=== PATIENT | male | born 1935 | race Caucasian/White ===

== ENCOUNTER 2018-04-23 09:00 | Outpatient (RCR) | payer MEDICARE, OTHER, SELFPAY ==
--- NOTE | 2018-03-26 16:00 | PT.OTN ---
Current Diagnoses Unilateral primary osteoarthritis, left knee (03/27/18) Pain in left knee (03/27/18) Transition note: On March 26, 2018 our therapy services consisting of Speech, Occupational, and Physical Therapy transitioned from the [employer] electronic documentation system to a new [employer] electronic documentation system.?? All documentation prior to March 26 can be found under [employer] saved data. From March 26 forward all medical record documentation will be in [employer] 6.1.
--- NOTE | 2018-03-27 17:33 | PT.OTN ---
Current Diagnoses Unilateral primary osteoarthritis, left knee (03/27/18) Pain in left knee (03/27/18) Physical Therapy Treatment Note PT-OP-A Visit Information Start: 03/27/18 12:36 Freq: Status: Active Protocol: Activity Type Activity Date Activity User E-Sign Co-Sign Detail Recorded Client Recorded Date Recorded By Document 03/27/18 17:08 KATHYA [id number] 03/27/18 17:11 EA 03/27/18 17:08 Out-Patient Physical Therapy Visit Information [Visit Information] -Visit Type Treatment Note PT-OP-C Subjective Start: 03/27/18 12:36 Freq: Status: Active Protocol: Activity Type Activity Date Activity User E-Sign Co-Sign Detail Recorded Client Recorded Date Recorded By Document 03/27/18 17:14 KATHYA [id number] 03/27/18 17:16 EA 03/27/18 17:14 OP-PT Subjective [Patient Comments] -Patient Reported Progress Improving Patient Questionnaires [Lower Extremity Functional Scale] -LEFS Impairment 1 to 19% Impaired (Score 63-79) PT-OP-Q Treatments Start: 03/27/18 12:36 Freq: Status: Active Protocol: Activity Type Activity Date Activity User E-Sign Co-Sign Detail Recorded Client Recorded Date Recorded By Document 03/27/18 17:16 EA [id number] 03/27/18 17:22 EA 03/27/18 17:16 Cardio Equipment [Recumbent Stepper (Sci-Fit)] -Duration (Minutes) 7 -Resistance 2 Gym Equipment [Cable Column (Body Solid)] Leg Extension -Resistance 30-50 lbs -Reps/Time x 12 x 3 [Shuttle Recovery] Unilateral Squats -Resistance 3-4 cords -Shuttle Recovery Platform Stable -Reps/Time x 12 x 3 sets Therapeutic Exercises [Supine Exercises] 1 -Supine Exercise Name Supine hamstring -Side left -Reps/Minutes 30 SH x 2 [Sidelying Exercises] 1 -Sidelying Exercise Name IT band and hip flexors stretches -Side left -Reps/Minutes x 30SH x 2 [Standing Exercises] 1 -Standing Exercise Name Half kneeling hip flexors and quads stretch -Side bilateral -Reps/Minutes x 30SH x 2reps [Other Exercises] 2 -Other Exercise Name Partial lunges hand support -Side bilateral -Reps/Minutes x 8 reps x 2 1 -Other Exercise Name Sit to stand squat w/ heel raises w/ hand support -Side bilateral -Reps/Minutes x 10 x 2sets -Comments no knee over toes PT-OP-R Modalities Start: 03/27/18 12:36 Freq: Status: Active Protocol: Activity Type Activity Date Activity User E-Sign Co-Sign Detail Recorded Client Recorded Date Recorded By Document 03/27/18 17:14 EA [id number] 03/27/18 17:16 EA 03/27/18 17:14 Electric Stimulation [Electric Stimulation] Interferential Current (IFC) -Body Location left knee -Duration (Minutes) 15 -Target/Sweep Target -Patient Position Supine -Combined With Heat/Cold Cold Pack Hot Pack/Cold Pack [Treatment] Cold Pack -Patient Position Supine -Patient Tolerance Good PT-OP-T Assessment and Plan Start: 03/27/18 12:36 Freq: Status: Active Protocol: Activity Type Activity Date Activity User E-Sign Co-Sign Detail Recorded Client Recorded Date Recorded By Document 03/27/18 17:23 EA [id number] 03/27/18 17:28 EA 03/27/18 17:23 Physical Therapy Assessment [Rehab Potential] -Rehabilitation Potential Good [Impairments] -Impairments Pain Strength [Progress Towards Goals] -Progress Towards Goals Progressing Toward Goals [Assessment Summary] -Assessment Patient have seen for 10 tretament session at this time and demonstrates increased activity tolerance and decreased pain complaint. Patient will still benefit with skilled PT to address the remaining deficit Physical Therapy Plan [Frequency and Duration] -Frequency of Treatment 1x/Week -Duration of Treatment 45 [Therapeutic Interventions] -Therapeutic Interventions Joint Mobilizations Manual Therapy Self-Care/Home Management Soft Tissue Mobilization Therapeutic Exercises -Modalities Cold Pack/Ice Massage Electric Stimulation Ultrasound
--- NOTE | 2018-04-04 09:51 | PT.OTN ---
Current Diagnoses Unilateral primary osteoarthritis, left knee (04/04/18) Pain in left knee (04/04/18) Physical Therapy Treatment Note PT-OP-A Visit Information Start: 03/27/18 12:36 Freq: Status: Active Protocol: Document 04/04/18 09:50 EA (Rec: 04/04/18 09:50 EA [id number]) Out-Patient Physical Therapy Visit Information Visit Information Visit Type Treatment Note Total Visit Minutes 60 Visit Number 12 PT-OP-C Subjective Start: 03/27/18 12:36 Freq: Status: Active Protocol: Document 04/04/18 09:42 EA (Rec: 04/04/18 09:50 EA [id number]) OP-PT Subjective Patient Comments Patient Comments Patient has been up in the yard doing actively and denies pain. Patient Reported Progress Improving PT-OP-Q Treatments Start: 03/27/18 12:36 Freq: Status: Active Protocol: Document 04/04/18 09:42 EA (Rec: 04/04/18 09:50 EA [id number]) Cardio Equipment Recumbent Stepper (Sci-Fit) Duration (Minutes) 7 Resistance 3 Therapeutic Exercises Supine Exercises 1 Supine Exercise Name Supine hamstring Side left Reps/Minutes 30 SH x 2 Sidelying Exercises 1 Sidelying Exercise Name IT band and hip flexors stretches Side left Reps/Minutes x 30SH x 2 Standing Exercises 1 Standing Exercise Name Half kneeling hip flexors and quads stretch Side bilateral Reps/Minutes x 30SH x 2reps Other Exercises 2 Other Exercise Name Full lunges hand support Side bilateral Reps/Minutes x 8 reps x 2 1 Other Exercise Name Side step squat on rails Manual Therapy Treatment Soft Tissue Mobilization 1 Comments Not performed Joint Mobilizations 1 Joint TF joint; L Direction Ant/post Grade II PT-OP-R Modalities Start: 03/27/18 12:36 Freq: Status: Active Protocol: Document 04/04/18 09:42 EA (Rec: 04/04/18 09:50 EA [id number]) Electric Stimulation Electric Stimulation Interferential Current (IFC) Body Location left knee Duration (Minutes) 15 Target/Sweep Target Patient Position Supine Combined With Heat/Cold Cold Pack Hot Pack/Cold Pack Treatment Cold Pack Patient Position Supine Patient Tolerance Good PT-OP-T Assessment and Plan Start: 03/27/18 12:36 Freq: Status: Active Protocol: Document 04/04/18 09:42 EA (Rec: 04/04/18 09:50 EA [id number]) Physical Therapy Assessment Assessment Summary Assessment Patient denies discomfort or knee paint throughout the session. Patint is progressing at this time. Physical Therapy Plan Next Visit Focus/Plan Next Visit Plan Advance as tolerated.
--- NOTE | 2018-04-08 10:46 | PT.OTN ---
Current Diagnoses Unilateral primary osteoarthritis, left knee (04/08/18) Pain in left knee (04/08/18) Physical Therapy Treatment Note PT-OP-A Visit Information Start: 03/27/18 12:36 Freq: Status: Active Protocol: Document 04/08/18 09:55 EA (Rec: 04/08/18 10:45 EA [id number]) Out-Patient Physical Therapy Visit Information Visit Information Visit Type Treatment Note Total Visit Minutes 60 Visit Number 13 PT-OP-C Subjective Start: 03/27/18 12:36 Freq: Status: Active Protocol: Document 04/08/18 09:55 EA (Rec: 04/08/18 10:45 EA [id number]) OP-PT Subjective Patient Comments Patient Comments Patient unable to do HEP due to busy schedule. Pt reports no increased of knee pain int he past week. PT-OP-Q Treatments Start: 03/27/18 12:36 Freq: Status: Active Protocol: Document 04/08/18 09:55 EA (Rec: 04/08/18 10:45 EA [id number]) Cardio Equipment Recumbent Stepper (Sci-Fit) Duration (Minutes) 7 Resistance 3 Therapeutic Exercises Supine Exercises 1 Supine Exercise Name Supine hamstring Side left Reps/Minutes 30 SH x 2 Sidelying Exercises 1 Sidelying Exercise Name IT band and hip flexors stretches Side left Reps/Minutes x 30SH x 2 Standing Exercises 1 Standing Exercise Name Half kneeling hip flexors and quads stretch Side bilateral Reps/Minutes x 30SH x 2reps Other Exercises 2 Other Exercise Name Full lunges hand support Side bilateral Reps/Minutes x 8 reps x 2 1 Other Exercise Name Sit to stand squat w/ heel raises w/ hand support Side bilateral Reps/Minutes x 10 x 2sets Comments no knee over toes Manual Therapy Treatment Soft Tissue Mobilization 1 Body Location quads Mobilization Type Myofascial Release Intensity/Depth Moderate Body Position Supine Joint Mobilizations 1 Joint TF joint; L Direction Ant/post Grade II PT-OP-R Modalities Start: 03/27/18 12:36 Freq: Status: Active Protocol: Document 04/08/18 10:45 EA (Rec: 04/08/18 10:46 EA [id number]) Electric Stimulation Electric Stimulation Interferential Current (IFC) Body Location left knee Duration (Minutes) 15 Target/Sweep Target Patient Position Supine Combined With Heat/Cold Cold Pack Hot Pack/Cold Pack Treatment Cold Pack Patient Position Supine Patient Tolerance Good PT-OP-T Assessment and Plan Start: 03/27/18 12:36 Freq: Status: Active Protocol: Document 04/08/18 09:55 EA (Rec: 04/08/18 10:45 EA [id number]) Physical Therapy Assessment Progress Towards Goals Progress Towards Goals Progressing Toward Goals Assessment Summary Assessment See patient in 2 weeks and recommended to patient to cont . HEP. Patient is progressing well. Physical Therapy Plan Next Visit Focus/Plan Next Visit Plan Assess patient next visit and possible discharge to HEP if no more complaint.
--- NOTE | 2018-04-23 10:21 | PT.OTN ---
Current Diagnoses Unilateral primary osteoarthritis, left knee (04/23/18) Pain in left knee (04/23/18) Physical Therapy Treatment Note PT-OP-A Visit Information Start: 03/27/18 12:36 Freq: Status: Active Protocol: Document 04/23/18 09:39 EA (Rec: 04/23/18 10:20 EA [id number]) Out-Patient Physical Therapy Visit Information Visit Information Visit Type Treatment Note Total Visit Minutes 30 Visit Number 14 PT-OP-C Subjective Start: 03/27/18 12:36 Freq: Status: Active Protocol: Document 04/23/18 09:39 EA (Rec: 04/23/18 10:20 EA [id number]) OP-PT Subjective Patient Comments Patient Comments Patient reports left knee does not bother him much. HEP exercises is helping him but unable to perform in the past weeks due to busy schedule. Patient Questionnaires Lower Extremity Functional Scale LEFS Score 73 LEFS Impairment 1 to 19% Impaired (Score 63-79 ) PT-OP-Q Treatments Start: 03/27/18 12:36 Freq: Status: Active Protocol: Document 04/23/18 09:39 EA (Rec: 04/23/18 10:20 EA [id number]) Cardio Equipment Recumbent Stepper (Sci-Fit) Duration (Minutes) 7 Resistance 3 Therapeutic Exercises Supine Exercises 1 Supine Exercise Name Supine hamstring Side left Reps/Minutes 30 SH x 2 Comments home component Sidelying Exercises 1 Sidelying Exercise Name IT band and hip flexors stretches Side left Reps/Minutes x 30SH x 2 Comments home component program Standing Exercises 1 Standing Exercise Name Half kneeling hip flexors and quads stretch Side bilateral Reps/Minutes x 30SH x 2reps Comments HEP component Other Exercises 2 Other Exercise Name Full lunges hand support Side bilateral Reps/Minutes x 8 reps x 2 Comments HEP component program 1 Other Exercise Name Sit to stand squat w/ heel raises w/ hand support Side bilateral Reps/Minutes x 10 x 2sets Comments no knee over toes, HEP component program Self-Care/Home Management Treatment Education Patient Education Home Exercise Program Pain Management PT-OP-R Modalities Start: 03/27/18 12:36 Freq: Status: Active Protocol: Document 04/08/18 10:45 EA (Rec: 04/08/18 10:46 EA [id number]) Electric Stimulation Electric Stimulation Interferential Current (IFC) Body Location left knee Duration (Minutes) 15 Target/Sweep Target Patient Position Supine Combined With Heat/Cold Cold Pack Hot Pack/Cold Pack Treatment Cold Pack Patient Position Supine Patient Tolerance Good PT-OP-T Assessment and Plan Start: 03/27/18 12:36 Freq: Status: Active Protocol: Document 04/23/18 09:39 EA (Rec: 04/23/18 10:20 EA [id number]) Physical Therapy Assessment Assessment Summary Assessment Patient is discharge today after reaching most functional and treatment goals. Patient exhibit improved mobility with no signs of gait deviation at this time. Patient is good to dicharge to [facility] at this time. Discussed HEP and educated. Physical Therapy Plan Discharge Physical Therapy Discharge Reasons Goals Met Next Visit Focus/Plan Next Visit Plan Patient is discharge today. Please Sign and Return: I have reviewed this Plan of Care and certify that the skilled therapy services above are required to meet the patient???s needs. Physician Signature Date Printed Name and Credentials Clinical Instructor Signature Printed Name and Credentials
--- NOTE | 2018-04-23 10:21 | PT.OPDS ---
Current Diagnoses Unilateral primary osteoarthritis, left knee (04/23/18) Pain in left knee (04/23/18) Provider Visit Care Team Role Provider Type Zurdo Mcdonnell MD Attending Provider Physician Family Provider Primary Care Provider Specialty: Family Practice Address: [address] [place] [address], [id number] Email: [email or web address] Discharge Summary PT-OP-C Subjective Start: 03/27/18 12:36 Freq: Status: Active Protocol: Document 04/23/18 09:39 EA (Rec: 04/23/18 10:20 EA [id number]) OP-PT Subjective Patient Comments Patient Comments Patient reports left knee does not bother him much. HEP exercises is helping him but unable to perform in the past weeks due to busy schedule. Patient Questionnaires Lower Extremity Functional Scale LEFS Score 73 LEFS Impairment 1 to 19% Impaired (Score 63-79 ) PT-OP-T Assessment and Plan Start: 03/27/18 12:36 Freq: Status: Active Protocol: Document 04/23/18 09:39 EA (Rec: 04/23/18 10:20 EA [id number]) Physical Therapy Assessment Assessment Summary Assessment Patient is discharge today after reaching most functional and treatment goals. Patient exhibit improved mobility with no signs of gait deviation at this time. Patient is good to dicharge to [facility] at this time. Discussed HEP and educated. Physical Therapy Plan Discharge Physical Therapy Discharge Reasons Goals Met Next Visit Focus/Plan Next Visit Plan Patient is discharge today. Please Sign and Return: I have reviewed this Plan of Care and certify that the skilled therapy services above are required to meet the patient???s needs. Physician Signature Date Printed Name and Credentials Clinical Instructor Signature Printed Name and Credentials
== END 2018-04-26 10:10 ==
LOC: PHYS 09:00
PROVIDERS: Family Provider Family Medicine; PCP Family Medicine; Visit Provider Family Medicine
DX: M25.562 Pain in left knee (principal); M17.12 Unilateral primary osteoarthritis, left knee
CPT/HCPCS: 97014; 97110; 97140; 97535; G0283

== ENCOUNTER → 2018-09-17 15:33 | Outpatient (CLI) | payer MEDICARE, OTHER, SELFPAY ==
[2018-09-17 17:10] LABS: Hemoglobin 13.8 g/dL (13.5-17.5); Red Cell Distribution Width 12.9 % (11.6-14.8); White Blood Cell Count 5.3 X10^3/uL (4.5-11.0)
[2018-09-17 17:22] LABS: Mean Corpuscular HGB Conc 33.7 % (30-36); Mean Corpuscular Hemoglobin 33.2 PG (26-34); Mean Corpuscular Volume 98.7 fL (80-100); Platelet Count 189 X10^3/uL (150-400); Red Blood Cell Count 4.15 X10^6/uL (4.5-5.9)
[2018-09-17 17:34] LABS: Alanine Aminotransferase 40 IU/L (21-72); Albumin 4.1 g/dL (3.5-5.0); Albumin Globulin Ratio 2.1 (1.0-2.8); Alkaline Phosphatase 92 U/L (38-126); Aspartate Aminotransferase 35 IU/L (17-59); BUN Creatinine Ratio 36.7 (6-22); Bilirubin Total 0.8 mg/dL (0.2-1.3); Blood Urea Nitrogen 22 mg/dL (9-20); Calcium 9.1 mg/dL (8.4-10.2); Carbon Dioxide 29 mmol/L (22-32); Chloride 105 mmol/L (98-107); Cholesterol 141 mg/dL (140-199); Estimated Glomerular Filt Rate > 60.0 mL/min (>60); Glucose 83 mg/dL (80-110); HDL Cholesterol 38 mg/dL (40-60); HEMOLYSIS 26 (0-50); LDL Cholesterol Calculated 78 mg/dL (<100); Potassium 4.2 mmol/L (3.4-5.1); Sodium 143 mmol/L (137-145); Total Protein 6.1 g/dL (6.3-8.2); Triglycerides 126 mg/dL (35-150)
[2018-09-17 18:00] LABS: TSH w/ Reflex to FT4 0.41 uIU/mL (0.47-4.68)
[2018-09-17 18:22] LABS: Neutrophils Absolute Manual 3339 /uL (3000-5900); Platelet Morphology Comment NOTE; RBC Morphology Normal Morphology; Total Cells Counted 100
[2018-09-17 18:25] LABS: Free T4, Direct Thyroxine 0.92 ng/dL (0.78-2.19)
== END ==
PROVIDERS: Family Provider Family Medicine; PCP Family Medicine; Visit Provider Family Medicine
DX: E78.00 Pure hypercholesterolemia, unspecified (principal); J44.9 Chronic obstructive pulmonary disease, unspecified
CPT/HCPCS: 36415; 80053; 80061; 84439; 84443; 85025

== ENCOUNTER → 2018-12-03 15:27 | Outpatient (CLI) | payer MEDICARE, OTHER, SELFPAY ==
[2018-12-06 22:42] LABS: Protein C Antigen 113 % normal (70-140)
== END ==
PROVIDERS: Family Provider Family Medicine; PCP Family Medicine; Visit Provider Family Medicine
DX: Z83.2 Family history of diseases of the blood and blood-forming organs and certain disorders involving the immune mechanism (principal)
CPT/HCPCS: 36415; 81241; 85302

== ENCOUNTER → 2018-12-16 08:07 | Outpatient (CLI) | payer MEDICARE, OTHER, SELFPAY ==
--- NOTE | 2018-12-16 08:08 | DI.US.S_ITS ---
PROCEDURE: US PERIPH VENOUS LOW EXTREM LT INDICATIONS: LEG PAIN, SWELLING TECHNIQUE: Real-time imaging, as well as color and pulse Doppler interrogation, were performed of the lower extremity deep veins from the inguinal ligament to the popliteal fossa. COMPARISON: None. FINDINGS: The deep veins are normally compressible, and free of intraluminal thrombus. Color and pulse Doppler demonstrate normal phasic intraluminal flow. There is normal augmentation response to distal compression maneuver. Edema present within the left calf. IMPRESSION: No deep venous thrombosis identified within the left lower extremity. Dictated by: Sandro Hazel [facility] Interpreted: Raul Brenner MD on 12/16/2018 at 10:23 Approved by: Raul Brenner M.D. on 12/16/2018 at 11:18
== END ==
PROVIDERS: Family Provider Family Medicine; PCP Family Medicine; Visit Provider Family Medicine
DX: R60.0 Localized edema (principal); M79.605 Pain in left leg
CPT/HCPCS: 93971

== ENCOUNTER → 2019-01-22 08:58 | Outpatient (CLI) | payer MEDICARE, OTHER, SELFPAY ==
--- NOTE | 2019-01-22 09:11 | DI.CT.S_ITS ---
PROCEDURE: CT CHEST W CON INDICATIONS: PULMONARY NODULE TECHNIQUE: After the administration of intravenous contrast, 5 mm thick sections acquired from the pulmonary apices to the posterior costophrenic angles. 7 mm thick coronal and sagittal MIP reformats were acquired. For radiation dose reduction, the following was used: automated exposure control, adjustment of mA and/or kV according to patient size. COMPARISON: [facility], CT, THORAX WITH CONTRAST, 06/15/2009, 12:40. [facility], CT, THORAX WITH CONTRAST, 04/21/2011, 9:30. FINDINGS: Image quality: Excellent. Lungs and pleura: No acute consolidation. There is redemonstration of scattered bilateral ground glass and ill-defined patchy opacities. No definite new consolidation is seen. There is improved aeration of the right middle lobe since remote prior study dated 04/21/11. No pleural effusions or pneumothorax. Central and peripheral airways are patent and normal in caliber. Mediastinum: Heart size is normal. Calcified coronary artery disease. No pericardial effusion. No mediastinal or hilar adenopathy by size criteria. Thoracic aorta and central pulmonary arteries are normal in size. Esophagus is normal in caliber. No hiatal hernia. Bones and chest wall: No suspicious bony lesions. No vertebral body compression fractures. No axillary or supraclavicular adenopathy by size criteria. Thyroid gland heterogeneous appearance of the thyroid bilaterally and could be better assessed with dedicated ultrasound. Abdomen: Large simple appearing left renal cysts. IMPRESSION: No new consolidation. Marked heterogeneous appearance of the thyroid which could be better assessed with dedicated ultrasound as clinically warranted. Diffuse scarring and presumed post inflammatory changes with grossly stable appearance since 04/21/11. Coronary artery disease. Dictated by: Ion Sun M.D. on 01/22/2019 at 12:56 Approved by: Ion Sun M.D. on 01/22/2019 at 13:01
[2019-01-22 10:13] LABS: BUN Creatinine Ratio 25.6 (6-22); Blood Urea Nitrogen 23 mg/dL (9-20); Estimated Glomerular Filt Rate > 60.0 mL/min (>60)
== END ==
PROVIDERS: Family Provider Family Medicine; PCP Family Medicine; Visit Provider Family Medicine
DX: Z01.812 Encounter for preprocedural laboratory examination (principal); R91.1 Solitary pulmonary nodule; N28.1 Cyst of kidney, acquired; I25.10 Atherosclerotic heart disease of native coronary artery without angina pectoris; E07.9 Disorder of thyroid, unspecified
CPT/HCPCS: 36415; 71260; 82565; 84520

== ENCOUNTER → 2019-01-27 13:49 | Outpatient (CLI) | payer MEDICARE, OTHER, SELFPAY ==
--- NOTE | 2019-02-20 08:20 | PM.CARDMON.1 ---
Child Welfare Specialist Report Referral & Results Date Patient Seen: 01/27/19 Requesting provider: Zurdo Mcdonnell Indication: Atrial fibrillation Duration of monitoring (days): 14 Diary information: Patient had no diary entries Patient had no patient triggered events Data: Minimum overall heart rate was 46 beats per minute at 07:10 on 02/09/2019 Maximum sinus heart rate was 113 beats per minute at 13:24 on 01/29/2019 Maximum overall heart rate was 197 beats per minute at 11:11 on 02/02/2019, associated with a run of SVT during a 13 beat run Patient had 14 runs of supraventricular tachycardia the fastest being the 197 beats per minute, which was also the longest run Patient also had a single 4 beat run of ventricular tachycardia, and had 577 ventricular couplets and no triplets. Patient also had up to 7.7 seconds of ventricular bigeminy and up to 20.5 seconds of ventricular trigeminy Approximately 2% of identified beats were PACs Approximately 1% of identified beats were PVCs No atrial fibrillation was identified Impression: No atrial fibrillation identified Patient with rare and brief runs of what appears to be supraventricular tachycardia Patient with significant burden both ventricular and supraventricular ectopic beats as above. Clinical correlation suggested
--- NOTE | 2019-02-20 08:24 | P.HOLT.S_ITS ---
Grocery Clerk Stocking Report Referral & Results Date Patient Seen: 01/27/19 Requesting provider: Zurdo Mcdonnell Indication: Atrial fibrillation Duration of monitoring (days): 14 Diary information: Patient had no diary entries Patient had no patient triggered events Data: Minimum overall heart rate was 46 beats per minute at 07:10 on 02/09/2019 Maximum sinus heart rate was 113 beats per minute at 13:24 on 01/29/2019 Maximum overall heart rate was 197 beats per minute at 11:11 on 02/02/2019, associated with a run of SVT during a 13 beat run Patient had 14 runs of supraventricular tachycardia the fastest being the 197 beats per minute, which was also the longest run Patient also had a single 4 beat run of ventricular tachycardia, and had 577 v entricular couplets and no triplets. Patient also had up to 7.7 seconds of ventricular bigeminy and up to 20.5 seconds of ventricular trigeminy Approximately 2% of identified beats were PACs Approximately 1% of identified beats were PVCs No atrial fibrillation was identified Impression: No atrial fibrillation identified Patient with rare and brief runs of what appears to be supraventricular tachycardia Patient with significant burden both ventricular and supraventricular ectopic beats as above. Clinical correlation suggested
== END ==
PROVIDERS: Family Provider Family Medicine; PCP Family Medicine; Visit Provider Family Medicine
DX: I48.91 Unspecified atrial fibrillation (principal)
CPT/HCPCS: 0296T; 0298T

== ENCOUNTER 2019-02-04 19:04 | Emergency (ER) | payer MEDICARE, OTHER, SELFPAY ==
[2019-02-04 19:08] VITALS: BP 117/61; PULSE 66; RESP 15; TEMP 36.7; O2SAT 96; BMI 29.0
--- NOTE | 2019-02-04 19:38 | DI.RAD.S_ITS ---
PROCEDURE: XR CHEST 1V INDICATIONS: new afib TECHNIQUE: One view of the chest was acquired. COMPARISON: [facility], , CHEST 2 VIEW, 02/02/2017, 9:08. FINDINGS: Surgical changes and devices: Electronic device projects over the left hilum. Lungs and pleura: Mild airspace opacity within the left midlung. No pleural effusions or pneumothorax. Mediastinum: Mediastinal contours appear normal. Heart size is normal. Bones and chest wall: No suspicious bony lesions. Overlying soft tissues appear unremarkable. IMPRESSION: Left midlung pneumonia. Follow up plain films of the chest are recommended to ensure resolution, and to exclude underlying or central malignancy. Dictated by: Alison Issa M.D. on 02/04/2019 at 20:20 Approved by: Alison Issa M.D. on 02/04/2019 at 20:20
--- NOTE | 2019-02-04 19:44 | DI.US.S_ITS ---
PROCEDURE: US PERIPH VENOUS LOW EXTREM LT INDICATIONS: pain swelling, left leg, no injury, hx Afib TECHNIQUE: Real-time imaging, as well as color and pulse Doppler interrogation, were performed of the lower extremity deep veins from the inguinal ligament to the popliteal fossa. COMPARISON: None. FINDINGS: The deep veins are normally compressible, and free of intraluminal thrombus. Color and pulse Doppler demonstrate normal phasic intraluminal flow. There is normal augmentation response to distal compression maneuver. Mixed echogenicity focus measuring 87 mm x 96 mm x 27 mm superior to the left knee. IMPRESSION: No evidence of DVT. Hematoma. Dictated by: Alison Issa M.D. on 02/04/2019 at 21:10 Approved by: Alison Issa M.D. on 02/04/2019 at 21:10
[2019-02-04 20:00] VITALS: BP 112/71; PULSE 54; RESP 17; O2SAT 94
--- NOTE | 2019-02-04 21:04 | ED.EXTPRO ---
HPI - Extremity Problem General Chief complaint: Extremity Problem,Nontraumatic Stated complaint: NEW ONSET HEART PROBLEMS, SWOLLEN LEG Time Seen by Provider: 02/04/19 19:10 Source: patient and family Mode of arrival: ambulatory Limitations: no limitations History of Present Illness HPI Narrative: 84-year-old male nonsmoker with newly diagnosed atrial fibrillation and history of hypertension and hyperlipidemia presents with multiple family members and a chief complaint of a sudden onset pain and swelling of his left knee in the absence of any injury. He was just started on Eliquis after being diagnosed with atrial fibrillation during a trip to [place] which resulted in a multi day hospitalization including an echocardiogram noting preserved ejection fraction. Patient states his pain is worse with motion and improves with rest. He denies any numbness, tingling or weakness. He has got no chest pain or shortness of breath. He has got no bleeding gums, hematuria or dark stools MD Complaint: extremity pain and extremity swelling Onset (ago): day(s) Pain Consistency: constant Location: left Quality: aching Radiation: none Relieving factors: rest Exacerbating factors: weight bearing and walking Related Data Home Medications Medication Instructions Recorded Confirmed ASPIRIN (#ASPIR 81) 81 mg PO BID #0 01/27/13 01/16/19 amiodarone 200 mg tablet 200 mg PO BID tab 01/16/19 01/16/19 apixaban 5 mg tablet 5 mg PO BID 01/16/19 01/16/19 furosemide 40 mg tablet 40 mg PO DAILY 01/16/19 01/16/19 lisinopril 20 mg tablet 20 mg PO DAILY 01/16/19 01/16/19 Previous Rx's Medication Instructions Recorded fluticasone-salmeterol [Advair 1 puff INH BID #180 puff 11/20/17 Diskus] albuterol sulfate HFA 90 2 puff INHALATION Q4HP PRN #1 inh 01/03/19 mcg/actuation aerosol inhaler lisinopril 40 mg PO QDAY #90 tab 01/03/19 tamsulosin 0.4 mg capsule 0.4 mg PO DAILY #30 cap 01/03/19 atorvastatin [Lipitor] 20 mg PO HS #90 tab 01/14/19 Allergies Allergy/AdvReac Type Severity Reaction Status Date / Time venom-honey bee Allergy Severe severe Verified 02/04/19 19:08 [BEE VENOM (HONEY BEE)] edema Review of Systems Constitutional Denies chills, Denies fever(s), Denies lethargy and Denies weakness Eyes Denies change in vision, Denies eye discharge, Denies irritation and Denies loss of vision ENT Ears, Nose, Mouth, and Throat: Denies change in voice, Denies neck pain and Denies sore throat Cardiovascular Denies chest pain, Denies irregular heart rhythm, Denies lightheadedness, Denies palpitations, Denies dyspnea, Denies dyspnea on exertion and Denies orthopnea Respiratory Denies cough, Denies dyspnea, Denies dyspnea on exertion and Denies wheezing Gastrointestinal Gastrointestinal: Denies abdominal pain, Denies change in bowel habits, Denies diarrhea, Denies nausea and Denies vomiting Genitourinary Denies hematuria, Denies flank pain, Denies urinary incontinence and Denies urinary urgency Musculoskeletal Reports joint swelling, Reports limited range of motion and Denies neck pain Integumentary/Breasts Denies pruritus, Denies erythema, Denies rash and Denies wounds Neurologic Denies confusion, Denies loss of vision and Denies weakness Psychiatric Denies anxiety, Denies confusion, Denies depression, Denies homicidal ideation and Denies suicidal ideation Endocrine Denies palpitations Hematologic/Lymphatic Denies easy bruising Allergic/Immunologic Denies wheezing [facility] Medical History Ankle pain (Chronic 06/2016) Asthma (Chronic) Eczema (Chronic) Foot pain (Chronic 06/2016) Hayfever (Chronic) Basal cell carcinoma (BCC) of right cheek (Resolved 09/04/16) Cataract (Resolved 12/2015) Colon polyps (Resolved 06/30/11) Surgical History History of basal cell carcinoma (BCC) excision (Resolved 09/04/16) History of colonoscopy with polypectomy (Resolved 06/30/11) History of phacoemulsification of cataract of left eye with intraocular lens implantation (Resolved 05/02/16) History of phacoemulsification of cataract of right eye with intraocular lens implantation (Resolved 04/18/16) Family History Father Cancer Diabetes mellitus Hypertension Mother Cancer High cholesterol Grandfather No problems noted. Grandmother No problems noted. Grandfather No problems noted. Grandmother No problems noted. Social History marital status: Smoking Status: Never smoker alcohol intake: current (2-3 A WEEK ) substance use type: does not use Family History Father Cancer Diabetes mellitus Hypertension Mother Cancer High cholesterol Grandfather No problems noted. Grandmother No problems noted. Grandfather No problems noted. Grandmother No problems noted. Social History marital status: Smoking Status: Never smoker alcohol intake: current (2-3 A WEEK ) substance use type: does not use Exam Narrative Exam Narrative: GEN: 84-year-old male resting comfortably AOx3 and in mild distress EYES: Pupils are equal, round, and reactive to light and accommodation. Extraoccular muscles are intact bilaterally. There is no subconjunctival hemorrhage or exudate. CHEST: Lungs are clear to auscultation bilaterally and free of wheezes, rales, or rhonchi. Heart rate is regular rhythm, there are no murmurs, clicks, rubs, or gallops. There is no chest wall tenderness. ABD: Abdomen is soft and nontender. There is no guarding or rebound. Bowel sounds are normal in all 4 quadrants. There is no mass or organomegaly. EXT: Patient has [id number] swelling with minimal fluctuance just proximal to left knee. There is no redness or warmth and minimal tenderness noted on this exam. There is no actual joint effusion and based on this exam low suspicion of hemarthrosis or septic arthritis. Patient has painless range of motion until he reaches the extremes of flexion or extension. Neurovascular status is intact SKIN: Warm, pink, and dry. No erythema or rash Initial Vital Signs Initial Vital Signs: Vital Signs Temperature 98.0 F 02/04/19 19:08 Pulse Rate 66 02/04/19 19:08 Respiratory Rate 15 02/04/19 19:08 Blood Pressure 117/61 02/04/19 19:08 Pulse Oximetry 96 02/04/19 19:08 Procedures Orthopedic Splinting/Casting Injury #1: Side: left Lower Extremity Injury Location: knee Lower Extremity Immobilizer: Konstantin wrap Scores CHADS-VASc Congestive heart failure: no Hypertension: yes Age 75 years or older: yes Diabetes mellitus: no Stroke, TIA, or TE: no Vascular disease: no Age 65 to 74 years: no Sex category (female): Male CHADS-VASc Score: 3 Course Orders Ordered: ED Orders 02/04/19 19:24 EKG-12 Lead Stat 02/04/19 19:38 XR chest 1V Stat 02/04/19 19:44 US perip venous low extrem lt Stat Consultations Consultation #1: I discussed anticoagulation with Dr. 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 Given patient's low chads Vasc score he recommends stopping apixaban for 2 days and then resuming normal dosing Vital Signs - 8 hr 02/04/19 21:25 Pulse Rate 59 L Respiratory Rate 17 Blood Pressure 128/70 Pulse Oximetry 94 MDM - Extremity (Nontraumatic) Imaging Data Venous US: Radiologist's impression: [address] [address] Ultrasound Report Signed Patient: Adilson Negro IMR#: [id number] : 6Acct:[id number] Age/Sex: 84 / MDate of Service: 02/04/19 Loc: ED Accession Number: [id number] Procedure: US perip venous low extrem lt Ordering Provider: Alfredo Camargo D.O. PROCEDURE: US PERIPH VENOUS LOW EXTREM LT INDICATIONS: pain swelling, left leg, no injury, hx Afib TECHNIQUE: Real-time imaging, as well as color and pulse Doppler interrogation, were performed of the lower extremity deep veins from the inguinal ligament to the popliteal fossa. COMPARISON: None. FINDINGS: The deep veins are normally compressible, and free of intraluminal thrombus. Color and pulse Doppler demonstrate normal phasic intraluminal flow. There is normal augmentation response to distal compression maneuver. Mixed echogenicity focus measuring 87 mm x 96 mm x 27 mm superior to the left knee. IMPRESSION: No evidence of DVT. Hematoma. Dictated by: Alison Issa M.D. on 02/04/2019 at 21:10 Approved by: Alison Issa M.D. on 02/04/2019 at 21:10 [facility] Narrative Medical decision making narrative: Patient has atraumatic swelling and pain proximal to left knee. He DVT the, infection, and hematoma are all considered. Ultrasound confirms a loculated hematoma. Given its loculation and the presence of anticoagulation I explained to patient that needle aspiration is not ideal and could result in more problems than benefit. We wrapped knee in an Konstantin wrap and consulted Cardiology to discuss any possible alterations to anticoagulation which as noted above Patient and family had questions answered to their apparent satisfaction. They have been given return precautions which they understand, as is evidenced by their ability to verbalize these instructions Discharge Plan Departure Patient Disposition: Home Clinical Impression: Hematoma Discharge Date/Time: 02/04/19 21:25 Interventions: ED Discharge Assessment Last Done: 02/04/19 21:25 Instructions: DI for Hematoma (Bruise) Activity Restrictions/Additional Instructions: *You have been diagnosed with [ spontaneous hematoma Left knee ] *What to do: *Wear KONSTANTIN wrap at least until you see Dr. Mcdonnell in the office *I called cardiology and spoke with one of Dr. Carrillo's partners (Dr. Pacheco) whom wanted me to stop your Apixaban now and resume on morning dose of 3/15. *Follow up with your primary care provider in 2-3 days, call for an appointment. Let them know you were seen in the Emergency Department and that we ask that you be seen in follow up *Return to ER if you should have any new, worsening or concerning symptoms Prescriptions: No Action ASPIRIN (#ASPIR 81) 81 mg PO BID Qty: 0 RF: 0 fluticasone-salmeterol [Advair Diskus] 250 MCG/50 MCG blister with device 1 puff INH BID Qty: 180 RF: 3 atorvastatin [Lipitor] 20 mg tablet 20 mg PO HS Qty: 90 RF: 3 Ventolin HFA 90 mcg/actuation HFA aerosol inhaler 2 puff Inhalation Q4HP PRN (Reason: shortness of breath or wheezing) Qty: 1 RF: 5 lisinopril 40 mg tablet 40 mg PO QDAY Qty: 90 RF: 3 tamsulosin [Flomax] 0.4 mg capsule 0.4 mg PO DAILY Qty: 30 RF: 1 amiodarone 200 mg tablet 200 mg PO BID RF: 0 apixaban 5 mg tablet 5 mg PO BID RF: 0 furosemide [Lasix] 40 mg tablet 40 mg PO DAILY RF: 0 lisinopril 20 mg tablet 20 mg PO DAILY RF: 0 Referrals: Zurdo Mcdonnell MD [Primary Care Provider] -
--- NOTE | 2019-02-04 21:09 | ED_ITS ---
HPI - Extremity Problem General Chief complaint: Extremity Problem,Nontraumatic Stated complaint: NEW ONSET HEART PROBLEMS, SWOLLEN LEG Time Seen by Provider: 02/04/19 19:10 Source: patient and family Mode of arrival: ambulatory Limitations: no limitations History of Present Illness HPI Narrative: 84-year-old male nonsmoker with newly diagnosed atrial fibrillation and history of hypertension and hyperlipidemia presents with multiple family members and a chief complaint of a sudden onset pain and swelling of his left knee in the absence of any injury. He was just started on Eliquis after being diagnosed with atrial fibrillation during a trip to [place] which resulted in a multi day hospitalization including an echocardiogram noting preserved ejection fraction. Patient states his pain is worse with motion and improves with rest. He denies any numbness, tingling or weakness. He has got no chest pain or shortness of breath. He has got no bleeding gums, hematuria or dark stools MD Complaint: extremity pain and extremity swelling Onset (ago): day(s) Pain Consistency: constant Location: left Quality: aching Radiation: none Relieving factors: rest Exacerbating factors: weight bearing and walking Related Data Home Medications Medication Instructions Recorded Confirmed ASPIRIN (#ASPIR 81) 81 mg PO BID #0 01/27/13 01/16/19 amiodarone 200 mg tablet 200 mg PO BID tab 01/16/19 01/16/19 apixaban 5 mg tablet 5 mg PO BID 01/16/19 01/16/19 furosemide 40 mg tablet 40 mg PO DAILY 01/16/19 01/16/19 lisinopril 20 mg tablet 20 mg PO DAILY 01/16/19 01/16/19 Previous Rx's Medication Instructions Recorded fluticasone-salmeterol [Advair 1 puff INH BID #180 puff 11/20/17 Diskus] albuterol sulfate HFA 90 2 puff INHALATION Q4HP PRN #1 inh 01/03/19 mcg/actuation aerosol inhaler lisinopril 40 mg PO QDAY #90 tab 01/03/19 tamsulosin 0.4 mg capsule 0.4 mg PO DAILY #30 cap 01/03/19 atorvastatin [Lipitor] 20 mg PO HS #90 tab 01/14/19 Allergies Allergy/AdvReac Type Severity Reaction Status Date / Time venom-honey bee Allergy Severe severe Verified 02/04/19 19:08 [BEE VENOM (HONEY BEE)] edema Review of Systems Constitutional Denies chills, Denies fever(s), Denies lethargy and Denies weakness Eyes Denies change in vision, Denies eye discharge, Denies irritation and Denies loss of vision ENT Ears, Nose, Mouth, and Throat: Denies change in voice, Denies neck pain and Denies sore throat Cardiovascular Denies chest pain, Denies irregular heart rhythm, Denies lightheadedness, Denies palpitations, Denies dyspnea, Denies dyspnea on exertion and Denies orthopnea Respiratory Denies cough, Denies dyspnea, Denies dyspnea on exertion and Denies wheezing Gastrointestinal Gastrointestinal: Denies abdominal pain, Denies change in bowel habits, Denies diarrhea, Denies nausea and Denies vomiting Genitourinary Denies hematuria, Denies flank pain, Denies urinary incontinence and Denies urinary urgency Musculoskeletal Reports joint swelling, Reports limited range of motion and Denies neck pain Integumentary/Breasts Denies pruritus, Denies erythema, Denies rash and Denies wounds Neurologic Denies confusion, Denies loss of vision and Denies weakness Psychiatric Denies anxiety, Denies confusion, Denies depression, Denies homicidal ideation and Denies suicidal ideation Endocrine Denies palpitations Hematologic/Lymphatic Denies easy bruising Allergic/Immunologic Denies wheezing [facility] Medical History Ankle pain (Chronic 06/2016) Asthma (Chronic) Eczema (Chronic) Foot pain (Chronic 06/2016) Hayfever (Chronic) Basal cell carcinoma (BCC) of right cheek (Resolved 09/04/16) Cataract (Resolved 12/2015) Colon polyps (Resolved 06/30/11) Surgical History History of basal cell carcinoma (BCC) excision (Resolved 09/04/16) History of colonoscopy with polypectomy (Resolved 06/30/11) History of phacoemulsification of cataract of left eye with intraocular lens implantation (Resolved 05/02/16) History of phacoemulsification of cataract of right eye with intraocular lens implantation (Resolved 04/18/16) Family History Father Cancer Diabetes mellitus Hypertension Mother Cancer High cholesterol Grandfather No problems noted. Grandmother No problems noted. Grandfather No problems noted. Grandmother No problems noted. Social History marital status: Smoking Status: Never smoker alcohol intake: current (2-3 A WEEK ) substance use type: does not use Family History Father Cancer Diabetes mellitus Hypertension Mother Cancer High cholesterol Grandfather No problems noted. Grandmother No problems noted. Grandfather No problems noted. Grandmother No problems noted. Social History marital status: Smoking Status: Never smoker alcohol intake: current (2-3 A WEEK ) substance use type: does not use Exam Narrative Exam Narrative: GEN: 84-year-old male resting comfortably AOx3 and in mild distress EYES: Pupils are equal, round, and reactive to light and accommodation. Extraoccular muscles are intact bilaterally. There is no subconjunctival hemorrhage or exudate. CHEST: Lungs are clear to auscultation bilaterally and free of wheezes, rales, or rhonchi. Heart rate is regular rhythm, there are no murmurs, clicks, rubs, or gallops. There is no chest wall tenderness. ABD: Abdomen is soft and nontender. There is no guarding or rebound. Bowel sounds are normal in all 4 quadrants. There is no mass or organomegaly. EXT: Patient has muqe-kv-[id number] swelling with minimal fluctuance just proximal to left knee. There is no redness or warmth and minimal tenderness noted on this exam. There is no actual joint effusion and based on this exam low suspicion of hemarthrosis or septic arthritis. Patient has painless range of motion until he reaches the extremes of flexion or extension. Neurovascular status is intact SKIN: Warm, pink, and dry. No erythema or rash Initial Vital Signs Initial Vital Signs: Vital Signs Temperature 98.0 F 02/04/19 19:08 Pulse Rate 66 02/04/19 19:08 Respiratory Rate 15 02/04/19 19:08 Blood Pressure 117/61 02/04/19 19:08 Pulse Oximetry 96 02/04/19 19:08 Procedures Orthopedic Splinting/Casting Injury #1: Side: left Lower Extremity Injury Location: knee Lower Extremity Immobilizer: Konstantin wrap Scores CHADS-VASc Congestive heart failure: no Hypertension: yes Age 75 years or older: yes Diabetes mellitus: no Stroke, TIA, or TE: no Vascular disease: no Age 65 to 74 years: no Sex category (female): Male CHADS-VASc Score: 3 Course Orders Ordered: ED Orders 02/04/19 19:24 EKG-12 Lead Stat 02/04/19 19:38 XR chest 1V Stat 02/04/19 19:44 US perip venous low extrem lt Stat Consultations Consultation #1: I discussed anticoagulation with Dr. 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 Given patient's low chads Vasc score he recommends stopping apixaban for 2 days and then resuming normal dosing Vital Signs - 8 hr 02/04/19 21:25 Pulse Rate 59 L Respiratory Rate 17 Blood Pressure 128/70 Pulse Oximetry 94 MDM - Extremity (Nontraumatic) Imaging Data Venous US: Radiologist's impression: [address] [address] Ultrasound Report Signed Patient: Adilson Negro IMR#: [id number] : 6Acct:[id number] Age/Sex: 84 / MDate of Service: 02/04/19 Loc: ED Accession Number: [id number] Procedure: US perip venous low extrem lt Ordering Provider: Alfredo Camargo D.O. PROCEDURE: US PERIPH VENOUS LOW EXTREM LT INDICATIONS: pain swelling, left leg, no injury, hx Afib TECHNIQUE: Real-time imaging, as well as color and pulse Doppler interrogation, were perfor med of the lower extremity deep veins from the inguinal ligament to the popliteal fossa. COMPARISON: None. FINDINGS: The deep veins are normally compressible, and free of intraluminal thrombus. Color and pulse Doppler demonstrate normal phasic intraluminal flow. There is normal augmentation response to distal compression maneuver. Mixed echogenicity focus measuring 87 mm x 96 mm x 27 mm superior to the left knee. IMPRESSION: No evidence of DVT. Hematoma. Dictated by: Alison Issa M.D. on 02/04/2019 at 21:10 Approved by: Alison Issa M.D. on 02/04/2019 at 21:10 [facility] Narrative Medical decision making narrative: Patient has atraumatic swelling and pain proximal to left knee. He DVT the, infection, and hematoma are all considered. Ultrasound confirms a loculated hematoma. Given its loculation and the presence of anticoagulation I explained to patient that needle aspiration is not ideal and could result in more problems than benefit. We wrapped knee in an Konstantin wrap and consulted Cardiology to discuss any possible alterations to anticoagulation which as noted above Patient and family had questions answered to their apparent satisfaction. They have been given return precautions which they understand, as is evidenced by their ability to verbalize these instructions Discharge Plan Departure Patient Disposition: Home Clinical Impression: Hematoma Discharge Date/Time: 02/04/19 21:25 Interventions: ED Discharge Assessment Last Done: 02/04/19 21:25 Instructions: DI for Hematoma (Bruise) Activity Restrictions/Additional Instructions: *You have been diagnosed with [ spontaneous hematoma Left knee ] *What to do: *Wear KONSTANTIN wrap at least until you see Dr. Mcdonnell in the office *I called cardiology and spoke with one of Dr. Carrillo's partners (Dr. Tri baez) whom wanted me to stop your Apixaban now and resume on morning dose of 3/15. *Follow up with your primary care provider in 2-3 days, call for an appointment. Let them know you were seen in the Emergency Department and that we ask that you be seen in follow up *Return to ER if you should have any new, worsening or concerning symptoms Prescriptions: No Action ASPIRIN (#ASPIR 81) 81 mg PO BID Qty: 0 RF: 0 fluticasone-salmeterol [Advair Diskus] 250 MCG/50 MCG blister with device 1 puff INH BID Qty: 180 RF: 3 atorvastatin [Lipitor] 20 mg tablet 20 mg PO HS Qty: 90 RF: 3 Ventolin HFA 90 mcg/actuation HFA aerosol inhaler 2 puff Inhalation Q4HP PRN (Reason: shortness of breath or wheezing) Qty: 1 RF: 5 lisinopril 40 mg tablet 40 mg PO QDAY Qty: 90 RF: 3 tamsulosin [Flomax] 0.4 mg capsule 0.4 mg PO DAILY Qty: 30 RF: 1 amiodarone 200 mg tablet 200 mg PO BID RF: 0 apixaban 5 mg tablet 5 mg PO BID RF: 0 furosemide [Lasix] 40 mg tablet 40 mg PO DAILY RF: 0 lisinopril 20 mg tablet 20 mg PO DAILY RF: 0 Referrals: Zurdo Mcdonnell MD [Primary Care Provider] -
[2019-02-04 21:25] VITALS: BP 128/70; PULSE 59; RESP 17; O2SAT 94
== END 2019-02-04 21:25 | disposition home or self-care (01) ==
PROVIDERS: Emergency Provider Emergency Medicine; Family Provider Family Medicine; PCP Family Medicine
DX: S80.12XA Contusion of left lower leg, initial encounter (principal); Z86.79 Personal history of other diseases of the circulatory system
CPT/HCPCS: 71045; 93005; 93971; 99282; 99285

== ENCOUNTER → 2019-03-07 09:45 | Outpatient (CLI) | payer MEDICARE, OTHER, SELFPAY ==
--- NOTE | 2019-03-07 15:09 | P.PCN_ITS ---
Cardiac Stress Test Report Referral & Results Date Patient Seen: 03/07/19 Requesting provider: Allan Carrillo Indication: Atrial flutter Rest ECG: Unremarkable Procedure Note: Today following both written and verbal informed consent the patient was exercised according to a standard Cosmo protocol patient went for a total of 3 minutes 2 seconds achieving a maximum heart rate of 147 maximum systolic blood pressure of 210. This is approximately 4.6 METS. Exercise was terminated at this point because of targets were met. Patient was also given Cardiolite through a previously started Hep-Lock IV by the repair technician approximately 1 minute prior to the cessation of exercise. No ST-T segment changes identified Normal heart rate and blood pressure response Functional aerobic impairment rated about 35% of the sedentary scale Occasional PVCs including ventricular couplets and triplets as well as multifocal ventricular premature depolarizations were present Occasional to rare PACs as well Impression: No evidence of ischemia Limited exercise capacity as above Ventricular dysrhythmia as above Please see perfusion imaging report as well Please note: Actual ECG tracings can be found in the PACS system.
--- NOTE | 2019-03-08 06:57 | DI.NM.S_ITS ---
DATE OF SERVICE: 03/07/2019 ORDERING PHYSICIAN: Allan Carrillo MD PROCEDURE PERFORMED: Exercise treadmill stress and rest myocardial perfusion imaging study with gating to assess ejection fraction and regional wall motion, performed as a 1-day study. INDICATIONS: The patient is an 84-year-old male with a recent isolated episode of atrial fibrillation. EXERCISE TREADMILL TESTING: The patient was able to exercise for only 3 minutes on a standard Cosmo protocol, suggesting moderate-severely reduced exercise capacity with an ANASTASIIA of approximately +42%, achieving a maximum of 4.6 METs. He had a normal heart rate response to exercise, achieving a maximum heart rate of 147 bpm (107% of his predicted maximum) and a mildly hypertensive blood pressure response, with a resting blood pressure of 140/88 increasing to 210/90. He had no chest discomfort. His resting ECG shows sinus rhythm without any significant ST segment abnormalities. With stress, he develops occasional PVCs, occasionally in couplets, but maintains sinus rhythm. There were no obvious ST segment deviations. His PVCs resolve in the recovery period. At 2 minutes of exercise, at a heart rate of 130 bpm, 26.0 of mCi Technetium-99 Myoview was injected, and the patient was imaged 20 minutes later using a gated SPECT protocol. Earlier in the day, he had been injected with 13.4 mCi Technetium-99 Myoview and imaged 30 minutes later, again used a gated SPECT protocol. FINDINGS: 1. RAW DATA: There is fairly good myocardial tracer uptake. While the lung/heart ratio is elevated at 0.46, this is not visually apparent on the raw data images. The TID ratio is normal at 1.04. 2. QUANTITATIVE GATED SPECT: Post-stress ejection fraction is estimated at 63% without any focal wall motion abnormality. The resting ejection fraction is 69% with an end-diastolic volume of 127 mL. 3. MYOCARDIAL PERFUSION IMAGING: Post-stress supine images show a fairly normal myocardial perfusion pattern without any obvious perfusion defects, supported by normal perfusion imaging in the prone position. The resting images show an identical perfusion pattern without any clear areas of improvement. CONCLUSIONS: 1. Normal myocardial perfusion study. 2. No evidence of myocardial ischemia or previous myocardial infarction. 3. Normal left ventricular systolic function without any focal wall motion abnormality. The calculated lung/heart ratio is mildly elevated at 0.46, which can be a sign of pulmonary congestion, although it is not apparent on the raw data images. 4. Markedly reduced exercise capacity without angina or ECG evidence of ischemia but with a significant increase in PVCs, occasionally in couplets, with stress, but no other complex ventricular ectopy. 5. Compared to the previous myocardial perfusion study of 12/20/2007, the patient previously had an ANASTASIIA of 0%, suggesting a decrease in his exercise capacity. His lung/heart ratio was normal, and his previous post-stress ejection fracture was 59%. Perfusion imaging then suggested mild diaphragmatic attenuation artifact which was not as apparent on today's study, but was otherwise normal, suggesting no significant change from the previous study. The patient had a hypertensive blood pressure response on that exam, as well. Marky Adilson - RS/fn/ts doc#: [id number]/job#: [id number] dd: 03/07/2019 16:19:00 dt: 03/08/2019 06:22:00 DICTATING /COPIES TO: Sonido Mendez MD; Allan Carrillo MD COPIES MNE: CT PETER
== END ==
PROVIDERS: Family Provider Family Medicine; PCP Family Medicine; Visit Provider Internal Medicine Cardiovascular Disease
DX: I48.91 Unspecified atrial fibrillation (principal)
CPT/HCPCS: 78452; 93016; 93017; 93018; A9502

== ENCOUNTER → 2019-04-07 08:04 | Outpatient (CLI) | payer MEDICARE, OTHER, SELFPAY ==
[2019-04-07 09:37] LABS: Add Manual Diff / Slide Review NO; Basophils Absolute Auto 0 /uL (0-100); Basophils Percent Auto 0.8 % (0-2); Eosinophils Absolute Auto 200 /uL (0-450); Eosinophils Percent Auto 4.6 % (2-4); Hematocrit 39.7 % (41-53); Hemoglobin 13.6 g/dL (13.5-17.5); Lymphocytes Absolute Auto 1000 /uL (1100-4500); Lymphocytes Percent Auto 25.6 % (25-40); Mean Corpuscular HGB Conc 34.1 % (30-36); Mean Corpuscular Hemoglobin 33.3 PG (26-34); Mean Corpuscular Volume 97.5 fL (80-100); Monocytes Absolute Auto 400 /uL (0-900); Neutrophils Absolute Auto 2200 /uL (1500-7000); Platelet Count 171 X10^3/uL (150-400); Red Blood Cell Count 4.07 X10^6/uL (4.5-5.9); Red Cell Distribution Width 13.1 % (11.6-14.8); White Blood Cell Count 3.8 X10^3/uL (4.5-11.0)
[2019-04-07 10:05] LABS: BUN Creatinine Ratio 27.5 (6-22); Blood Urea Nitrogen 22 mg/dL (9-20); Calcium 9.2 mg/dL (8.4-10.2); Carbon Dioxide 28 mmol/L (22-32); Chloride 106 mmol/L (98-107); Cholesterol 145 mg/dL (140-199); Estimated Glomerular Filt Rate > 60.0 mL/min (>60); Glucose 87 mg/dL (80-110); HDL Cholesterol 37 mg/dL (40-60); HEMOLYSIS < 15 (0-50); LDL Cholesterol Calculated 82 mg/dL (<100); Potassium 4.1 mmol/L (3.4-5.1); Sodium 140 mmol/L (137-145); Triglycerides 129 mg/dL (35-150)
== END ==
PROVIDERS: Family Provider Family Medicine; PCP Family Medicine; Visit Provider Internal Medicine Cardiovascular Disease
DX: I10 Essential (primary) hypertension (principal); E78.5 Hyperlipidemia, unspecified
CPT/HCPCS: 36415; 80048; 80061; 85025

== ENCOUNTER 2019-06-14 20:31 | Emergency (ER) | payer MEDICARE, OTHER, SELFPAY ==
[2019-06-14 20:35] VITALS: BP 128/70; PULSE 76; RESP 21; TEMP 36.7; O2SAT 98; BMI 27.8
--- NOTE | 2019-06-14 20:49 | DI.RAD.S_ITS ---
PROCEDURE: XR CHEST 2V INDICATIONS: fall right side contusion TECHNIQUE: 2 views of the chest were acquired. COMPARISON: [facility], CT, CT CHEST W CON, 01/22/2019, 10:25. [facility], CR, XR CHEST 1V, 02/04/2019, 19:50. FINDINGS: Surgical changes and devices: None. Lungs and pleura: Chronic emphysematous changes are seen. Hazy groundglass opacities are seen scattered in bilateral lung lamar not significantly changed from prior study and may represent pulmonary edema versus pneumonitis. No pleural effusion or pneumothorax. Mediastinum: Mediastinal contours are normal. Heart size is enlarged. Bones and chest wall: No suspicious bony abnormalities. Soft tissues appear unremarkable. IMPRESSION: COPD. Hazy groundglass opacity in bilateral lung lamar suggestive of pulmonary edema versus pneumonitis. No pleural effusion or pneumothorax. Dictated by: Raul Brenner M.D. on 06/14/2019 at 21:36 Approved by: Raul Brenner M.D. on 06/14/2019 at 21:38
--- NOTE | 2019-06-14 20:52 | ED_ITS ---
HPI - Fall General Chief Complaint: Fall Stated Complaint: fall, hit his head,on thinners Time Seen by Provider: 06/14/19 20:49 Source: patient Mode of arrival: ambulatory Limitations: no limitations History of Present Illness HPI Narrative: Patient is an 84-year-old male who presents after a syncopal episode and ground level fall on Eliquis. He was called as modified trauma. He admits to drinking at least 2 margaritas tonight he went downstairs to change the music he did not fall down the stairs. Family heard him fall up stairs he had a brief loss of consciousness. He vomited 1 time. He really has no com plaints. He does have a contusion on his right chest. No laceration on his head. He states he is on Eliquis for atrial flutter. Related Data Home Medications Medication Instructions Recorded Confirmed furosemide 40 mg tablet 40 mg PO DAILY 01/16/19 06/09/19 lisinopril 20 mg tablet 20 mg PO DAILY 01/16/19 06/09/19 Previous Rx's Medication Instructions Recorded albuterol sulfate HFA 90 2 puff INHALATION Q4HP PRN #1 inh 01/03/19 mcg/actuation aerosol inhaler lisinopril 40 mg PO QDAY #90 tab 01/03/19 atorvastatin [Lipitor] 20 mg PO HS #90 tab 01/14/19 metoprolol succinate ER 50 mg 50 mg PO DAILY #30 tab 03/11/19 tablet,extended release 24 hr tamsulosin 0.4 mg capsule 0.4 mg PO DAILY #30 cap 03/13/19 apixaban 5 mg tablet 5 mg PO BID #60 tab 06/02/19 fluticasone 250 mcg-salmeterol 50 1 inhalation INHALATION BID #180 06/09/19 mcg/dose blistr powdr for puff inhalation Allergies Allergy/AdvReac Type Severity Reaction Status Date / Time venom-honey bee Allergy Severe severe Verified 06/09/19 09:17 [BEE VENOM (HONEY BEE)] edema Review of Systems Review of Systems ROS Unobtainable: All systems reviewed & are unremarkable except as noted in HPI and below Constitutional Denies chills, Denies fever(s), Denies lethargy and Denies weakness Eyes Denies change in vision, Denies eye discharge, Denies irritation and Denies loss of vision ENT Ears, Nose, Mouth, and Throat: Denies change in voice, Denies neck pain and Denies sore throat Cardiovascular Reports as per HPI, Reports syncope, Reports irregular heart rhythm, Denies dyspnea and Denies dyspnea on exertion Respiratory Denies cough, Denies dyspnea, Denies dyspnea on exertion and Denies wheezing Gastrointestinal Gastrointestinal: Denies abdominal pain, Denies change in bowel habits, Denies diarrhea, Denies nausea and Denies vomiting Genitourinary Denies hematuria, Denies flank pain, Denies urinary incontinence and Denies urinary urgency Musculoskeletal Denies neck pain Integumentary/Breasts Denies pruritus, Denies erythema, Denies rash and Denies wounds Neurologic Reports syncope, Denies loss of vision and Denies weakness Allergic/Immunologic Denies wheezing Exam Initial Vital Signs Initial Vital Signs: Vital Signs Temperature 98.1 F 06/14/19 20:35 Pulse Rate 76 06/14/19 20:35 Respiratory Rate 21 06/14/19 20:35 Blood Pressure 128/70 06/14/19 20:35 Pulse Oximetry 98 06/14/19 20:35 GENERAL: Alert well-appearing elderly male HEENT: Head atraumatic,EOMI, pupils reactive, face symmetric, moist mucous membranes NECK: No vertebral tenderness no step-off full range of motion CARDIOVASCULAR: Regular rate and rhythm without murmurs, rubs or gallops. Contusion noted on right chest RESPIRATORY: Breath sounds equal bilaterally, no wheezes rales or rhonchi. ABDOMEN: Soft, nontender. Normoactive bowel sounds all 4 quadrants. No guarding or rebound. EXTREMITIES: Normal range of motion, no clubbing or edema. Neurovascularly intact NEUROLOGICAL: Alert and oriented x4.Normal gait and speech. Cranial nerves II through XII grossly intact. Good vmtvaa-mh-nwoh, good tote-jl-cvrd, strength equal bilaterally, no dysarthria or aphasia, sensation in tact to soft touch bilaterally, no visual changes, no facial droop SKIN: Warm, dry, no laceration, no petechiae, no rashes or lesions. [facility] Medical History Ankle pain (Chronic 06/2016) Asthma (Chronic) Eczema (Chronic) Foot pain (Chronic 06/2016) Hayfever (Chronic) Basal cell carcinoma (BCC) of right cheek (Resolved 09/04/16) Cataract (Resolved 12/2015) Colon polyps (Resolved 06/30/11) Surgical History History of basal cell carcinoma (BCC) excision (Resolved 09/04/16) History of colonoscopy with polypectomy (Resolved 06/30/11) History of phacoemulsification of cataract of left eye with intraocular lens implantation (Resolved 05/02/16) History of phacoemulsification of cataract of right eye with intraocular lens implantation (Resolved 04/18/16) Family History Father Cancer Diabetes mellitus Hypertension Mother Cancer High cholesterol Grandfather No problems noted. Grandmother No problems noted. Grandfather No problems noted. Grandmother No problems noted. Social History marital status: Smoking Status: Never smoker alcohol intake: current substance use type: does not use Family History Father Cancer Diabetes mellitus Hypertension Mother Cancer High cholesterol Grandfather No problems noted. Grandmother No problems noted. Grandfather No problems noted. Grandmother No problems noted. Social History marital status: Smoking Status: Never smoker alcohol intake: current substance use type: does not use Scores NIH Stroke Scale Level of Conciousness: Alert, keenly responsive Ask month/age: Answers both questions correctly. Open/close eyes, close hand: Performs both tasks correctly Best gaze horizontal: Normal Visual lamar: No visual loss Facial palsy: Normal symetrical movement Left arm drift: No drift for full 10 sec Right arm drift: No drift for full 10 sec Left leg drift: No drift for full 10 sec Right leg drift: No drift for full 10 sec Limb ataxia: Absent Sensory on face/arms/legs: Normal, no sensory loss Best language: No aphasia, normal Dysarthria: Normal Extinction or inattention: No abnormality Total NIH Stroke scale score: 0 Course Orders Ordered: ED Orders 06/14/19 20:49 XR chest 2V Stat 06/14/19 20:50 CT cervical spine wo con Stat CT head/brain wo con Stat EKG-12 Lead Stat 06/14/19 21:05 Complete Blood Count AUTO DIFF Stat Comprehensive Metabolic Panel Stat Prothrombin Time INR Stat Troponin & CK Cardiac Panel Stat Discontinued Medications Sodium Chloride (Normal Saline 0.9%) 1,000 mls @ 1,000 mls/hr IV BOLUS ONE Stop: 06/14/19 21:48 Last Infusion: 06/14/19 22:03 Dose: 1,000 mls/hr Admin: 06/14/19 21:09 Dose: 1,000 mls/hr Vital Signs - 8 hr 06/14/19 20:35 06/14/19 21:00 06/14/19 21:30 Temperature 98.1 F Pulse Rate 76 67 66 Respiratory Rate 21 17 16 Blood Pressure 128/70 Blood Pressure [Left Arm] 117/66 130/69 Pulse Oximetry 98 95 94 06/14/19 22:15 06/14/19 22:35 Temperature 98.2 F Pulse Rate 71 74 Respiratory Rate 17 16 Blood Pressure 132/77 Blood Pressure [Left Arm] 118/73 Pulse Oximetry 99 98 MDM - Fall Lab Data Attestation: I reviewed the patient's lab results. Result diagrams: 06/14/19 21:05 06/14/19 21:05 Lab Results 06/14/19 06/14/19 06/14/19 Range/Units 21:05 21:05 21:05 WBC 6.5 (4.5-11.0) X10^3/uL RBC 4.09 L (4.5-5.9) X10^6/uL Hgb 13.6 (13.5-17.5) g/dL Hct 40.6 L (41-53) % MCV 99.4 (80-100) fL MCH 33.2 (26-34) PG MCHC 33.4 (30-36) % RDW 13.0 (11.6-14.8) % Plt Count 168 (150-400) X10^3/uL Neut % (Auto) 80.1 H (50-75) % Lymph % (Auto) 10.6 L (25-40) % Converse % (Auto) 7.4 (3-14) % Eos % (Auto) 1.2 L (2-4) % Baso % (Auto) 0.7 (0-2) % Neut # (Auto) 5200 (2523-3587) /uL Lymph # (Auto) 700 L (2794-3469) /uL Converse # (Auto) 500 (0-900) /uL Eos # (Auto) 100 (0-450) /uL Baso # (Auto) 0 (0-100) /uL PT 11.9 (10.1-12.7) SECONDS INR 1.0 (0.9-1.3) Sodium 140 (137-145) mmol/L Potassium 4.2 (3.4-5.1) mmol/L Chloride 105 (98-107) mmol/L Carbon Dioxide 26 (22-32) mmol/L BUN 19 (9-20) mg/dL Creatinine 0.60 L (0.66-1.25) mg/dL Estimated GFR > 60.0 (>60) mL/min BUN/Creatinine Ratio 31.7 H (6-22) Glucose 107 (80-110) mg/dL Calcium 9.2 (8.4-10.2) mg/dL Total Bilirubin 0.7 (0.2-1.3) mg/dL AST 31 (17-59) IU/L ALT 32 (21-72) IU/L Alkaline Phosphatase 77 (38-126) U/L Total Creatine Kinase 45 L (55-170) U/L CK-MB (CK-2) TNP CK-MB (CK-2) Rel Index TNP Troponin I < 0.012 (0.01-0.034) ng/mL Total Protein 6.3 (6.3-8.2) g/dL Albumin 4.0 (3.5-5.0) g/dL Globulin 2.3 (1.7-4.1) g/dL Albumin/Globulin Ratio 1.7 (1.0-2.8) Point of Care Testing Glucose POC [address] scan - head: Radiologist's impression: PROCEDURE: CT HEAD/BRAIN WO CON INDICATIONS: fall on eliquis TECHNIQUE: Noncontrast 4.5 mm thick angled axial sections acquired from the foramen magnum to the vertex, with coronal and sagittal reformats. For radiation dose reduction, the following was used: automated exposure control, adjustment of mA and/or kV according to patient size. COMPARISON: [facility], CT, HEAD WITHOUT CONTRAST, 05/07/2007, 9:30. FINDINGS: Image quality: Excellent. CSF spaces: Basal cisterns are patent. No extra-axial fluid collections. The ventricles are symmetric in size and shape. Brain: No intracranial bleeds or masses. There is cerebral volume loss for age, with resultant ventricular and sulcal prominence. There are periventricular and deep white matter chronic small vessel ischemic changes. There is intracranial internal carotid artery atherosclerosis. Skull and face: Calvarium and visualized facial bones appear intact, without suspicious lesions. Sinuses: Visualized sinuses and mastoids are clear. IMPRESSION: No CT evidence of acute intracranial pathology. Age-appropriate atrophy and mild to moderate periventricular white matter chronic ischemic microangiopathic changes. Dictated by: Raul Brenner M.D. on 06/14/2019 at 21:26 ct cervical: Radiologist's impression: PROCEDURE: CT CERVICAL SPINE WO CON INDICATIONS: ll on eliquis TECHNIQUE: Noncontrast 3 mm thick sections acquired from the skull base to the T4 level. Sagittal and coronal reformats were then constructed. For radiation dose reduction, the following was used: automated exposure control, adjustment of mA and/or kV according to patient size. COMPARISON: None. FINDINGS: Image quality: Excellent. Bones: There is maintenance of normal cervical lordosis. No acute fracture or dislocation is seen. Degenerative end plate changes and bilateral facet hypertrophic changes are noted throughout cervical spine causing mild to moderate central canal stenosis and bilateral neuroforaminal narrowing more prominent at C5-6 level. Visualized superior ribs are intact. Soft tissues: Prevertebral soft tissues are normal in thickness. No paravertebral hematomas. No apical pneumothoraces. IMPRESSION: 1. No acute cervical spine fracture or traumatic spondylolisthesis. 2. Degenerative disc disease throughout cervical spine. Dictated by: Raul Brenner M.D. on 06/14/2019 at 21:27 Chest x-ray: Radiologist's impression: PROCEDURE: XR CHEST 2V INDICATIONS: fall right side contusion TECHNIQUE: 2 views of the chest were acquired. COMPARISON: [facility], CT, CT CHEST W CON, 01/22/2019, 10:25. [facility], CR, XR CHEST 1V, 02/04/2019, 19:50. FINDINGS: Surgical changes and devices: None. Lungs and pleura: Chronic emphysematous changes are seen. Hazy groundglass opacities are seen scattered in bilateral lung lamar not significantly changed from prior study and may represent pulmonary edema versus pneumonitis. No pleural effusion or pneumothorax. Mediastinum: Mediastinal contours are normal. Heart size is enlarged. Bones and chest wall: No suspicious bony abnormalities. Soft tissues appear unremarkable. IMPRESSION: COPD. Hazy groundglass opacity in bilateral lung lamar suggestive of pulmonary edema versus pneumonitis. No pleural effusion or pneumothorax. Dictated by: Raul Brenner M.D. on 06/14/2019 at 21:36 Approved by: Raul Brenner M.D. on 06/14/2019 at 21:38 ECG Data Attestation: I personally reviewed and interpreted this ECG as follows: Prior ECG tracings: available for review Interpretation: Normal sinus rhythm rate [address] changes no T-wave inversions similar to previous EKGs MDM Narrative Medical decision making narrative: At this time patient is overall feeling better. He is stood up to urinate. Likely had a vasovagal reaction. He has been on the monitor in sinus rhythm while he has been here. He feels ready and able to go home. Family comfortable with this decision. Discharge Plan Departure Patient Disposition: Home Clinical Impression: Near syncope Discharge Date/Time: 06/14/19 22:36 Interventions: ED Discharge Assessment Last Done: 06/14/19 22:35 Instructions: DI for Syncope in Adults (Fainting) Activity Restrictions/Additional Instructions: *You have been diagnosed with fainting episode *What to do: Workup today emergency department reassuring. Unclear why you passed out. *Continue to take medications as directed *Follow up with your primary care provider in 2-3 days *Return to ER if you should have confusion persistent vomiting chest pain heart palpitations recurrent fainting episode or any new, worsening or concerning symptoms Prescriptions: No Action fluticasone propion-salmeterol [Advair Diskus] 250-50 mcg/dose blister with device 1 inhalation inhalation BID Qty: 180 RF: 3 atorvastatin [Lipitor] 20 mg tablet 20 mg PO HS Qty: 90 RF: 3 tamsulosin [Flomax] 0.4 mg capsule 0.4 mg PO DAILY Qty: 30 RF: 11 apixaban 5 mg tablet 5 mg PO BID Qty: 60 RF: 5 Ventolin HFA 90 mcg/actuation HFA aerosol inhaler 2 puff Inhalation Q4HP PRN (Reason: shortness of breath or wheezing) Qty: 1 RF: 5 lisinopril 40 mg tablet 40 mg PO QDAY Qty: 90 RF: 3 metoprolol succinate 50 mg tablet extended release 24 hr 50 mg PO DAILY Qty: 30 RF: 12 furosemide [Lasix] 40 mg tablet 40 mg PO DAILY RF: 0 lisinopril 20 mg tablet 20 mg PO DAILY RF: 0 Referrals: Zurdo Mcdonnell MD [Primary Care Provider] -
[2019-06-14 21:00] VITALS: BP 117/66; PULSE 67; RESP 17; O2SAT 95
[2019-06-14] MEDS: SODIUM CHLORIDE 0.9% 1,000 ML 1000 ML IV (21:09)
[2019-06-14 21:16] LABS: Add Manual Diff / Slide Review NO; Basophils Absolute Auto 0 /uL (0-100); Basophils Percent Auto 0.7 % (0-2); Eosinophils Absolute Auto 100 /uL (0-450); Eosinophils Percent Auto 1.2 % (2-4); Hematocrit 40.6 % (41-53); Hemoglobin 13.6 g/dL (13.5-17.5); Lymphocytes Absolute Auto 700 /uL (1100-4500); Lymphocytes Percent Auto 10.6 % (25-40); Mean Corpuscular HGB Conc 33.4 % (30-36); Mean Corpuscular Hemoglobin 33.2 PG (26-34); Mean Corpuscular Volume 99.4 fL (80-100); Monocytes Absolute Auto 500 /uL (0-900); Monocytes Percent Auto 7.4 % (3-14); Neutrophils Absolute Auto 5200 /uL (1500-7000); Neutrophils Percent Auto 80.1 % (50-75); Platelet Count 168 X10^3/uL (150-400); Red Blood Cell Count 4.09 X10^6/uL (4.5-5.9); White Blood Cell Count 6.5 X10^3/uL (4.5-11.0)
[2019-06-14 21:18] LABS: Prothrombin Time 11.9 SECONDS (10.1-12.7)
[2019-06-14 21:23] LABS: Alanine Aminotransferase 32 IU/L (21-72); Albumin Globulin Ratio 1.7 (1.0-2.8); Alkaline Phosphatase 77 U/L (38-126); Aspartate Aminotransferase 31 IU/L (17-59); BUN Creatinine Ratio 31.7 (6-22); Bilirubin Total 0.7 mg/dL (0.2-1.3); Blood Urea Nitrogen 19 mg/dL (9-20); Calcium 9.2 mg/dL (8.4-10.2); Carbon Dioxide 26 mmol/L (22-32); Chloride 105 mmol/L (98-107); Creatine Kinase 45 U/L (55-170); Estimated Glomerular Filt Rate > 60.0 mL/min (>60); Globulin 2.3 g/dL (1.7-4.1); Glucose 107 mg/dL (80-110); HEMOLYSIS < 15 (0-50); Potassium 4.2 mmol/L (3.4-5.1); Sodium 140 mmol/L (137-145); Total Protein 6.3 g/dL (6.3-8.2)
--- NOTE | 2019-06-14 21:24 | PC.NURSE ---
Pt back from CT via stretcher. ECG in progress. denies any pain. States does not know what caused him to fall. Unknown LOC. Placed on the monitor. Will continue to monitor.
[2019-06-14 21:30] VITALS: BP 130/69; PULSE 66; RESP 16; O2SAT 94
[2019-06-14 21:35] LABS: Troponin I < 0.012 ng/mL (0.01-0.034)
[2019-06-14 22:15] VITALS: BP 118/73; PULSE 71; RESP 17; O2SAT 99
[2019-06-14 22:35] VITALS: BP 132/77; PULSE 74; RESP 16; TEMP 36.8; O2SAT 98
== END 2019-06-14 22:36 | disposition home or self-care (01) ==
PROVIDERS: Emergency Provider Emergency Medicine; Family Provider Family Medicine; PCP Family Medicine
DX: R55 Syncope and collapse (principal); S20.211A Contusion of right front wall of thorax, initial encounter; S09.90XA Unspecified injury of head, initial encounter; R11.11 Vomiting without nausea; W18.39XA Other fall on same level, initial encounter; Z79.01 Long term (current) use of anticoagulants
CPT/HCPCS: 36591; 70450; 71046; 72125; 80053; 82550; 82962; 84484; 85025; 85610; 93005; 96360; 99283; 99285

== ENCOUNTER → 2019-06-25 10:13 | Outpatient (CLI) | payer MEDICARE, OTHER, SELFPAY ==
[2019-06-25 12:10] LABS: Vitamin B12 359 pg/mL (239-931)
== END ==
PROVIDERS: PCP Family Medicine; Visit Provider Family Medicine
DX: R53.83 Other fatigue (principal)
CPT/HCPCS: 36415; 82607

== ENCOUNTER → 2020-03-30 11:36 | Outpatient (CLI) | payer MEDICARE, OTHER, SELFPAY ==
--- NOTE | 2020-03-30 12:30 | DI.RAD.S_ITS ---
PROCEDURE: XR CHEST 2V INDICATIONS: cough TECHNIQUE: 2 views of the chest were acquired. COMPARISON: [facility], CR, CHEST 2 VIEW, 02/02/2017, 9:08. [facility], CT, CT CHEST W CON, 01/22/2019, 10:25. [facility], CR, XR CHEST 2V, 06/14/2019, 21:16. FINDINGS: Surgical changes and devices: None. Lungs and pleura: Bilateral chronic interstitial and airspace infiltrates are slightly increased. Increased airspace opacities are present in right lower lobe and left upper lobe. No pleural effusions or pneumothorax. Mediastinum: Mediastinal contours are normal. Heart size is normal. Bones and chest wall: No suspicious bony abnormalities. Soft tissues appear unremarkable. IMPRESSION: Increased right lower lobe and left upper lobe opacities with superimposed chronic interstitial and airspace infiltrates bilaterally, suspicious for acute pneumonia superimposed on chronic lung disease. Dictated by: Unruly Alcantar M.D. on 03/30/2020 at 13:45 Approved by: Unruly Alcatnar M.D. on 03/30/2020 at 13:48
== END ==
PROVIDERS: PCP Family Medicine; Referring Provider Family Medicine; Visit Provider Family Medicine
DX: R05 Cough (principal)
CPT/HCPCS: 71046

== ENCOUNTER → 2020-03-31 10:22 | Outpatient (CLI) | payer MEDICARE, OTHER, SELFPAY ==
[2020-04-02 15:07] LABS: COVID19 Sendout Not Detected (Not Detected)
== END ==
PROVIDERS: PCP Family Medicine; Visit Provider Family Medicine
DX: R05 Cough (principal)
CPT/HCPCS: 87635

== ENCOUNTER → 2020-04-23 11:05 | Outpatient (CLI) | payer MEDICARE, OTHER, SELFPAY ==
[2020-04-25 18:09] LABS: COVID19 Sendout Not Detected (Not Detected)
== END ==
PROVIDERS: PCP Family Medicine; Visit Provider Registered Nurse
DX: R05 Cough (principal)
CPT/HCPCS: 87635

== ENCOUNTER → 2020-04-23 11:12 | Outpatient (CLI) | payer MEDICARE, OTHER, SELFPAY ==
--- NOTE | 2020-04-23 11:14 | DI.RAD.S_ITS ---
PROCEDURE: XR CHEST 2V INDICATIONS: Cough TECHNIQUE: 2 views of the chest were acquired. COMPARISON: [facility], CT, CT CHEST W CON, 01/22/2019, 10:25. [facility], CT, CT CERVICAL SPINE WO CON, 06/14/2019, 20:53. [facility], CR, XR CHEST 2V, 03/30/2020, 12:23. [facility], CR, XR CHEST 2V, 06/14/2019, 21:16. FINDINGS: Surgical changes and devices: None. Lungs and pleura: Lungs are edematous. No pleural effusions or pneumothorax. Mediastinum: Mediastinal contours are normal. Heart size is normal. Bones and chest wall: No suspicious bony abnormalities. Soft tissues appear unremarkable. IMPRESSION: Mild edema pattern within the lung parenchyma, potentially cardiogenic in origin, but chronic pneumonitis and superimposed mild pulmonary fibrosis could produce this appearance. This has also been seen by prior CT scanning, for example 01/22/19. No definite interval change. Dictated by: Gaston Steward M.D. on 04/23/2020 at 11:45 Approved by: Gaston Steward M.D. on 04/23/2020 at 11:46
== END ==
PROVIDERS: PCP Family Medicine; Referring Provider Registered Nurse; Visit Provider Registered Nurse
DX: R05 Cough (principal)
CPT/HCPCS: 71046; 87635

== ENCOUNTER → 2020-06-21 07:02 | Outpatient (CLI) | payer MEDICARE, OTHER, SELFPAY ==
[2020-06-21 08:35] LABS: Rheumatoid Factor < 8.6 IU/mL (<12.0)
[2020-06-23 14:08] LABS: Antimyeloperoxidase AB <9.0 U/mL (0.0-9.0); Antiproteinase 3 AB <3.5 U/mL (0.0-3.5); Atypical P-ANCA Titer <1:20 titer (Neg:<1:20); C-ANCA Titer <1:20 titer (Neg:<1:20); P-ANCA Titer <1:20 titer (Neg:<1:20)
== END ==
PROVIDERS: PCP Family Medicine; Referring Provider Hospitalist; Visit Provider Hospitalist
DX: R06.02 Shortness of breath (principal)
CPT/HCPCS: 36415; 83520; 86256; 86430

== ENCOUNTER → 2020-12-22 08:58 | Outpatient (CLI) | payer MEDICARE, OTHER, SELFPAY ==
[2020-12-22 09:52] LABS: Add Manual Diff / Slide Review NO; Basophils Absolute Auto 100 /uL (0-100); Basophils Percent Auto 1.2 % (0-2); Eosinophils Absolute Auto 300 /uL (0-450); Eosinophils Percent Auto 5.7 % (2-4); Hematocrit 43.5 % (41-53); Hemoglobin 14.1 g/dL (13.5-17.5); Lymphocytes Absolute Auto 1100 /uL (1100-4500); Lymphocytes Percent Auto 24.8 % (25-40); Mean Corpuscular HGB Conc 32.4 % (30-36); Mean Corpuscular Hemoglobin 32.4 PG (26-34); Mean Corpuscular Volume 99.8 fL (80-100); Monocytes Absolute Auto 500 /uL (0-900); Monocytes Percent Auto 11.1 % (3-14); Neutrophils Absolute Auto 2500 /uL (1500-7000); Neutrophils Percent Auto 57.2 % (50-75); Platelet Count 187 X10^3/uL (150-400); Red Blood Cell Count 4.36 X10^6/uL (4.5-5.9); Red Cell Distribution Width 12.7 % (11.6-14.8); White Blood Cell Count 4.4 X10^3/uL (4.5-11.0)
[2020-12-22 10:11] LABS: BUN Creatinine Ratio 35.1 (6-22); Blood Urea Nitrogen 26 mg/dL (9-20); Calcium 9.2 mg/dL (8.4-10.2); Carbon Dioxide 35 mmol/L (22-32); Chloride 104 mmol/L (98-107); Cholesterol 125 mg/dL (140-199); Estimated Glomerular Filt Rate > 60.0 mL/min (>60); Glucose 90 mg/dL (80-110); HDL Cholesterol 30 mg/dL (40-60); HEMOLYSIS < 15 (0-50); LDL Cholesterol Calculated 69 mg/dL (<100); Potassium 4.5 mmol/L (3.4-5.1); Sodium 141 mmol/L (137-145); Triglycerides 129 mg/dL (35-150)
== END ==
PROVIDERS: PCP Family Medicine; Referring Provider Family Medicine; Visit Provider Internal Medicine Cardiovascular Disease
DX: I10 Essential (primary) hypertension (principal); E78.5 Hyperlipidemia, unspecified
CPT/HCPCS: 36415; 80048; 80061; 85025

== ENCOUNTER → 2020-12-29 13:57 | Outpatient (CLI) | payer MEDICARE, OTHER, SELFPAY ==
[2020-12-29] MEDS: COVID-19 VACC #1, MRNA(MOD) 100 MCG/0.5 ML VIAL IM (14:02)
== END ==
PROVIDERS: PCP Family Medicine; Visit Provider Internal Medicine
DX: Z23 Encounter for immunization (principal)
CPT/HCPCS: 0011A; 91301

== ENCOUNTER → 2021-01-27 14:05 | Outpatient (CLI) | payer MEDICARE, OTHER, SELFPAY ==
[2021-01-27] MEDS: COVID-19 VACC #2, MRNA(MOD) 100 MCG/0.5 ML VIAL IM (14:16)
== END ==
PROVIDERS: PCP Family Medicine; Visit Provider Internal Medicine
DX: Z23 Encounter for immunization (principal)
CPT/HCPCS: 0012A; 91301

== ENCOUNTER 2021-03-03 07:59 | Emergency (ER) | payer MEDICARE, OTHER, SELFPAY ==
[2021-03-03 08:13] VITALS: BP 167/93; PULSE 74; RESP 18; TEMP 37.2; O2SAT 96; BMI 27.8
[2021-03-03 08:21] LABS: Add Manual Diff / Slide Review NO; Basophils Absolute Auto 0 /uL (0-100); Basophils Percent Auto 0.9 % (0-2); Eosinophils Absolute Auto 200 /uL (0-450); Eosinophils Percent Auto 4.5 % (2-4); Hematocrit 42.8 % (41-53); Hemoglobin 14.5 g/dL (13.5-17.5); Lymphocytes Absolute Auto 1300 /uL (1100-4500); Mean Corpuscular HGB Conc 33.9 % (30-36); Mean Corpuscular Hemoglobin 33.4 PG (26-34); Mean Corpuscular Volume 98.6 fL (80-100); Monocytes Absolute Auto 600 /uL (0-900); Monocytes Percent Auto 11.4 % (3-14); Neutrophils Absolute Auto 3000 /uL (1500-7000); Neutrophils Percent Auto 58.2 % (50-75); Platelet Count 175 X10^3/uL (150-400); Red Blood Cell Count 4.35 X10^6/uL (4.5-5.9); White Blood Cell Count 5.1 X10^3/uL (4.5-11.0)
--- NOTE | 2021-03-03 08:25 | ED_ITS ---
HPI - GI Bleed General Chief complaint: GI Bleed Stated complaint: rectal bleeding since last night Time Seen by Provider: 03/03/21 08:11 Source: patient Mode of arrival: Ambulatory Limitations: no limitations History of Present Illness HPI Narrative: The patient experienced a bloody bowel movement yesterday evening , another one this morning. He is seeing copious right bright red blood with these 2 BMs. He has no abdominal pain. He denies chronic GI problems. He has not undergone recent colonoscopy. He has history of AFib/a flutter. He has been on Eliquis, he stopped Eliquis 3-4 days ago due to a rash. He has no recent illness. He denies headache or fever. He has no chest pain, he has no dyspnea. He has a chronic, dry cough. He is in no discomfort at this time. Related Data Home Medications Medication Instructions Recorded Confirmed furosemide 40 mg tablet 40 mg PO DAILY 01/16/19 04/28/20 montelukast 10 mg PO BEDTIME 03/03/21 03/03/21 Previous Rx's Medication Instructions Recorded albuterol sulfate 90 mcg/actuation 2 puff INHALATION Q4HP PRN #1 inh 01/03/19 aerosol inhaler fluticasone 250 mcg-salmeterol 50 1 inhalation INHALATION BID #180 06/09/19 mcg/dose blistr powdr for puff inhalation apixaban 5 mg tablet 5 mg PO BID #180 tab 01/01/20 lisinopril 40 mg tablet 40 mg PO QDAY #90 tab 01/01/20 tamsulosin 0.4 mg capsule 0.4 mg PO DAILY #90 cap 01/01/20 atorvastatin 20 mg tablet 20 mg PO HS #90 tab 03/18/20 prednisone 10 mg tablet See Rx Instructions PO DAILY #18 04/23/20 tab metoprolol succinate 50 mg 50 mg PO DAILY #90 tab 01/25/21 tablet,extended release 24 hr Allergies Allergy/AdvReac Type Severity Reaction Status Date / Time venom-honey bee Allergy Severe severe Verified 04/28/20 12:01 [BEE VENOM (HONEY BEE)] edema Review of Systems Constitutional Constitutional: Denies body ache(s), Denies chills, Denies fever(s), Denies headache(s) and Denies malaise Eyes Eyes: Denies change in vision ENT Ears, Nose, Mouth, and Throat: Denies headache(s) and Denies sore throat Cardiovascular Cardiovascular: Denies chest pain, Denies irregular heart rhythm, Denies lightheadedness, Denies palpitations and Denies dyspnea Respiratory Respiratory: Denies cough, Denies dyspnea and Denies wheezing Gastrointestinal Gastrointestinal: Denies abdominal pain, Denies change in bowel habits, Reports diarrhea (See HPI.), Denies nausea and Denies vomiting Genitourinary Genitourinary: Denies dysuria Genitourinary: Denies dysuria Musculoskeletal Musculoskeletal: Denies arthralgias and Denies back pain Comments: No lower extremity edema Integumentary/Breasts Comments: Recent rash as noted in HPI. Neurologic Neurologic: Denies confusion and Denies headache(s) Psychiatric Psychiatric: Denies anxiety and Denies confusion Endocrine Endocrine: Denies palpitations Allergic/Immunologic Allergic/Immunologic: Denies wheezing Patient History Medical History Ankle pain (06/2016) Asthma Basal cell carcinoma (BCC) of right cheek (09/04/16) Cataract (12/2015) Colon polyps (06/30/11) COPD exacerbation Eczema Foot pain (06/2016) Hayfever URI (upper respiratory infection) Surgical History History of basal cell carcinoma (BCC) excision (09/04/16) History of colonoscopy with polypectomy (06/30/11) History of phacoemulsification of cataract of left eye with intraocular lens implantation (05/02/16) History of phacoemulsification of cataract of right eye with intraocular lens implantation (04/18/16) Family History Father Cancer Diabetes mellitus Hypertension Mother Cancer High cholesterol Grandfather No problems noted. Grandmother No problems noted. Grandfather No problems noted. Grandmother No problems noted. Social History marital status: Smoking Status: Never smoker alcohol intake: current substance use type: does not use Smoking Status: Never smoker alcohol intake frequency: 0-2 drinks per day Substance Use Type: does not use Exam Initial Vital Signs Initial Vital Signs: Vital Signs Temperature 98.9 F 03/03/21 08:13 Pulse Rate 74 03/03/21 08:13 Respiratory Rate 18 03/03/21 08:13 Blood Pressure 167/93 H 03/03/21 08:13 Pulse Oximetry 96 03/03/21 08:13 Const General: cooperative and well developed Nutritional Appearance: well nourished [facility] Head: normal to inspection, normocephalic and atraumatic Mouth: oral mucosae normal Eyes General: appearance normal, both eyes and all related structures Eyelids: eyelids normal Conjunctivae: conjunctivae normal Sclera: sclerae normal Pupils: PERRL EOM: EOM intact bilaterally Neck Neck: normal visual inspection, trachea midline, No lymphadenopathy, No midline deformity and No JVD Lymphatic: No lymphedema Chest Chest: normal inspection of the chest and normal palpation of entire chest wall Resp Effort & Inspection: normal respiratory effort and able to speak in complete sentences Auscultation: clear to auscultation bilaterally, no rales, no rhonchi and no wheezes Cardio Rate: regular rate Rhythm: regular rhythm Heart Sounds: S1 normal, S2 normal, no click, no gallops, no murmurs and no rubs Pulses: normal peripheral pulses GI Inspection: non-distended Palpation: soft, no hepatosplenomegaly, No guarding, No pulsatile mass and No tender Auscultation: normal bowel sounds Back/Spine/Pelvis Back: No back tenderness and No CVA tenderness Skin Other: No rash Neuro General: patient alert, patient oriented x3, gait normal and no focal motor deficits Speech: speech normal Extrem General: full ROM and no pedal edema Psych Mental Status: mental status grossly normal Course Course Course Narrative: The patient presents with acute lower GI bleed. Fortunately, his vitals are stable. His H/H is normal. He stopped Eliquis 3-4 days for, and he is in normal sinus rhythm. I discussed his care with his PCM, Dr. Mcdonnell. Admission is considered. The patient feels well. He walks to the ER without complaints. Postural vitals are normal prior to disposition. He will be discharged home for outpatient follow-up, it is emphasized that he should return the ER if symptoms escalate. Orders Ordered: ED Orders 03/03/21 08:10 Complete Blood Count AUTO DIFF Stat Comprehensive Metabolic Panel Stat Partial Thromboplastin Time Stat Prothrombin Time INR Stat 03/03/21 08:13 EKG-12 Lead Stat Vital Signs Vital signs: Vital Signs - 8 hr 03/03/21 08:13 Temperature 98.9 F Pulse Rate 74 Respiratory Rate 18 Blood Pressure 167/93 H Pulse Oximetry 96 MDM - GI Bleed Lab Data Result diagrams: 03/03/21 08:10 03/03/21 08:10 Labs: Lab Results 03/03/21 03/03/21 03/03/21 Range/Units 08:10 08:10 08:10 WBC 5.1 (4.5-11.0) X10^3/uL RBC 4.35 L (4.5-5.9) X10^6/uL Hgb 14.5 (13.5-17.5) g/dL Hct 42.8 (41-53) % MCV 98.6 (80-100) fL MCH 33.4 (26-34) PG MCHC 33.9 (30-36) % RDW 13.0 (11.6-14.8) % Plt Count 175 (150-400) X10^3/uL Neut % (Auto) 58.2 (50-75) % Lymph % (Auto) 25.0 (25-40) % [place] % (Auto) 11.4 (3-14) % Eos % (Auto) 4.5 H (2-4) % Baso % (Auto) 0.9 (0-2) % Neut # (Auto) 3000 (6727-6122) /uL Lymph # (Auto) 1300 (4572-9153) /uL [place] # (Auto) 600 (0-900) /uL Eos # (Auto) 200 (0-450) /uL Baso # (Auto) 0 (0-100) /uL PT 12.0 (10.1-12.7) SECONDS INR 1.0 (0.9-1.3) APTT 29 (26.4-36.2) SECONDS Sodium 140 (137-145) mmol/L Potassium 3.9 (3.4-5.1) mmol/L Chloride 105 (98-107) mmol/L Carbon Dioxide 28 (22-32) mmol/L BUN 18 (9-20) mg/dL Creatinine 0.73 (0.66-1.25) mg/dL Estimated GFR > 60.0 (>60) mL/min BUN/Creatinine Ratio 24.7 H (6-22) Glucose 90 (80-110) mg/dL Calcium 9.4 (8.4-10.2) mg/dL Total Bilirubin 0.8 (0.2-1.3) mg/dL AST 34 (17-59) IU/L ALT 27 (<50) IU/L Alkaline Phosphatase 107 (38-126) U/L Total Protein 6.7 (6.3-8.2) g/dL Albumin 4.2 (3.5-5.0) g/dL Globulin 2.5 (1.7-4.1) g/dL Albumin/Globulin Ratio 1.7 (1.0-2.8) ECG Data Attestation: I personally reviewed and interpreted this ECG as follows: (Normal sinus rhythm rate 64 beats per minute. Normal intervals. No ectopy. No acute ST T wave changes.) Discharge Plan Departure Patient Disposition: Home Clinical Impression: Acute lower gastrointestinal bleeding Instructions: Gastrointestinal Bleeding Activity Restrictions/Additional Instructions: Rest at home. Assure you remain well hydrated. Continue to avoid taking the Eliquis. If symptoms escalate, return the ER. If you are doing well, contact Dr. Mcdonnell for follow-up. Prescriptions: No Action fluticasone propion-salmeterol [Advair Diskus] 250-50 mcg/dose blister with device 1 inhalation inhalation BID Qty: 180 RF: 3 apixaban 5 mg tablet 5 mg PO BID Qty: 180 RF: 3 lisinopril 40 mg tablet 40 mg PO QDAY Qty: 90 RF: 3 tamsulosin [Flomax] 0.4 mg capsule 0.4 mg PO DAILY Qty: 90 RF: 3 prednisone 10 mg tablet See Rx Instructions PO DAILY Qty: 18 RF: 0 atorvastatin [Lipitor] 20 mg tablet 20 mg PO HS Qty: 90 RF: 3 metoprolol succinate 50 mg tablet extended release 24 hr 50 mg PO DAILY Qty: 90 RF: 3 Ventolin HFA 90 mcg/actuation HFA aerosol inhaler 2 puff Inhalation Q4HP PRN (Reason: shortness of breath or wheezing) Qty: 1 RF: 5 furosemide [Lasix] 40 mg tablet 40 mg PO DAILY RF: 0 montelukast 10 mg Tablet 10 mg PO BEDTIME RF: 0 Referrals: Zurdo Mcdonnell MD [Primary Care Provider] -
[2021-03-03 08:28] LABS: PTT Partial Thromboplastin Tim 29 SECONDS (26.4-36.2)
[2021-03-03 08:31] LABS: Alanine Aminotransferase 27 IU/L (<50); Albumin 4.2 g/dL (3.5-5.0); Albumin Globulin Ratio 1.7 (1.0-2.8); Alkaline Phosphatase 107 U/L (38-126); Aspartate Aminotransferase 34 IU/L (17-59); BUN Creatinine Ratio 24.7 (6-22); Bilirubin Total 0.8 mg/dL (0.2-1.3); Blood Urea Nitrogen 18 mg/dL (9-20); Calcium 9.4 mg/dL (8.4-10.2); Carbon Dioxide 28 mmol/L (22-32); Chloride 105 mmol/L (98-107); Estimated Glomerular Filt Rate > 60.0 mL/min (>60); Globulin 2.5 g/dL (1.7-4.1); Glucose 90 mg/dL (80-110); HEMOLYSIS < 15 (0-50); Potassium 3.9 mmol/L (3.4-5.1); Sodium 140 mmol/L (137-145); Total Protein 6.7 g/dL (6.3-8.2)
--- NOTE | 2021-03-03 09:24 | PC.NURSE ---
pt states liquid/bloody stools.
[2021-03-03 09:44] VITALS: BP 130/66; BP 140/67; BP 148/74; BP 161/75; PULSE 62; PULSE 65; PULSE 72; RESP 18; O2SAT 98
--- NOTE | 2021-03-03 09:45 | PC.NURSE ---
Pt did well with ambulation. No dizziness upon standing or walking. informed
== END 2021-03-03 09:58 | disposition home or self-care (01) ==
PROVIDERS: Emergency Provider Emergency Medicine; PCP Family Medicine
DX: K92.2 Gastrointestinal hemorrhage, unspecified (principal)
CPT/HCPCS: 36415; 80053; 85025; 85610; 85730; 93005; 99283; 99284

== ENCOUNTER → 2021-03-15 07:57 | Outpatient (CLI) | payer MEDICARE, OTHER, SELFPAY ==
[2021-03-15 08:49] LABS: Add Manual Diff / Slide Review NO; Basophils Absolute Auto 100 /uL (0-100); Basophils Percent Auto 1.3 % (0-2); Eosinophils Absolute Auto 200 /uL (0-450); Hematocrit 41.2 % (41-53); Hemoglobin 13.8 g/dL (13.5-17.5); Lymphocytes Absolute Auto 1200 /uL (1100-4500); Lymphocytes Percent Auto 28.2 % (25-40); Mean Corpuscular HGB Conc 33.6 % (30-36); Mean Corpuscular Hemoglobin 33.3 PG (26-34); Mean Corpuscular Volume 99.1 fL (80-100); Monocytes Absolute Auto 500 /uL (0-900); Neutrophils Absolute Auto 2200 /uL (1500-7000); Neutrophils Percent Auto 53.5 % (50-75); Platelet Count 174 X10^3/uL (150-400); Red Blood Cell Count 4.15 X10^6/uL (4.5-5.9); Red Cell Distribution Width 12.9 % (11.6-14.8); White Blood Cell Count 4.1 X10^3/uL (4.5-11.0)
[2021-03-15 09:31] LABS: Alanine Aminotransferase 28 IU/L (<50); Albumin 3.9 g/dL (3.5-5.0); Albumin Globulin Ratio 1.8 (1.0-2.8); Alkaline Phosphatase 95 U/L (38-126); Aspartate Aminotransferase 37 IU/L (17-59); Bilirubin Total 0.6 mg/dL (0.2-1.3); Blood Urea Nitrogen 19 mg/dL (9-20); Calcium 9.2 mg/dL (8.4-10.2); Carbon Dioxide 28 mmol/L (22-32); Chloride 107 mmol/L (98-107); Estimated Glomerular Filt Rate > 60.0 mL/min (>60); Globulin 2.2 g/dL (1.7-4.1); Glucose 88 mg/dL (80-110); HEMOLYSIS < 15 (0-50); Potassium 4.3 mmol/L (3.4-5.1); Sodium 141 mmol/L (137-145); Total Protein 6.1 g/dL (6.3-8.2)
[2021-03-15 09:56] LABS: TSH w/ Reflex to FT4 0.79 uIU/mL (0.47-4.68)
== END ==
PROVIDERS: PCP Family Medicine; Referring Provider Family Medicine; Visit Provider Family Medicine
DX: I10 Essential (primary) hypertension (principal); J44.1 Chronic obstructive pulmonary disease with (acute) exacerbation
CPT/HCPCS: 36415; 80053; 84443; 85025

== ENCOUNTER → 2021-03-23 09:33 | Outpatient (CLI) | payer MEDICARE, OTHER, SELFPAY ==
--- NOTE | 2021-04-27 09:09 | P.HOLT.S_ITS ---
Premium Note Interest Calculator Clerk Report Referral & Results Date Patient Seen: 03/23/21 Requesting provider: Zurdo Mcdonnell Indication: Atrial fibrillation Duration of monitoring (days): 14 Diary information: There was 1 patient triggered event This event was associated with (within 45 seconds) sinus rhythm and PACs Data: Minimum heart rate identified was 49 beats per minute at 07:53 on 03/24/2021 Maximum sinus heart rate was 136 beats per minute at 15:56 on 04/04/2021 Maximum overall heart rate was 179 beats per minute at 10:19 on 03/27/2021 during a 10 beat run of SVT There were 32 runs of SVT the fastest being the above-mentioned run, the longest lasting 14.2 seconds at a rate of 118 beats per minute, which might suggest more atrial tachycardia than true SVT Approximately 4.4% of identified beats were supraventricular ectopic in origin which would classify them as occasional Approximately 2.9% of identified beats were ventricular ectopic in origin which would classify them as occasional, this included up to 16.6 second runs of ventricular bigeminy and up to 15.5 second runs of ventricular trigeminy There is also a single event that appears to be a potential idioventricular rhythm with a heart rate of approximately 84 beats per minute that is 6 beats in duration, alternatively this could be classified as a 6 beat run of slow ventri cular tachycardia Impression: Minor rhythm disturbances as noted above including very rare brief runs of a supraventricular origin as well as the single idioventricular run noted above No episodes of atrial fibrillation identified on this study Clinical correlation suggested
== END ==
PROVIDERS: PCP Family Medicine; Referring Provider Family Medicine; Visit Provider Family Medicine
DX: I48.91 Unspecified atrial fibrillation (principal)
CPT/HCPCS: 93246; 93248

== ENCOUNTER → 2021-07-17 11:02 | Outpatient (CLI) | payer MEDICARE, OTHER, SELFPAY ==
[2021-07-17 11:24] LABS: COVID19 -Nasal RAPID Negative (Negative)
--- NOTE | 2021-07-17 11:31 | DI.RAD.S_ITS ---
PROCEDURE: XR CHEST 2V INDICATIONS: COPD, RLL diminished eval pna TECHNIQUE: 2 views of the chest were acquired. COMPARISON: [facility], CR, XR CHEST 2V, 06/14/2019, 21:16. [facility], CR, XR CHEST 2V, 03/30/2020, 12:23. [facility], CR, XR CHEST 2V, 04/23/2020, 11:12. FINDINGS: Surgical changes and devices: None. Lungs and pleura: Bilateral interstitial type infiltrates are seen, with more confluent perihilar infiltrates. Lung volumes are low. No negrita, focal lung consolidations can be seen. Mediastinum: Mediastinal contours are normal. Heart size is mildly enlarged. Bones and chest wall: No suspicious bony abnormalities. Age-appropriate bony degenerative changes are seen. Accentuated thoracic kyphosis is seen. Soft tissues appear unremarkable. IMPRESSION: Mild cardiomegaly and interstitial prominence, with perihilar infiltrates. CHF is suspected. If clinically appropriate, a short-term followup chest series (with PA and lateral views) performed in deep inspiration is suggested for further evaluation. Dictated by: Rajiv Nam M.D. on 07/17/2021 at 10:49 Approved by: Rajiv Nam M.D. on 07/17/2021 at 10:50
== END ==
PROVIDERS: PCP Family Medicine; Referring Provider Physician Assistant; Visit Provider Physician Assistant
DX: Z20.822 Contact with and (suspected) exposure to COVID-19 (principal); R05 Cough
CPT/HCPCS: 71046; 87635

== ENCOUNTER → 2021-07-22 12:20 | Outpatient (CLI) | payer MEDICARE, OTHER, SELFPAY ==
--- NOTE | 2021-07-22 | DI.CT.S_ITS ---
PROCEDURE: CT CHEST HIGH RESOLUTION INDICATIONS: Dyspnea, unspecified TECHNIQUE: Noncontrast 1.0 and 5.0 mm thick contiguous axial sections from the pulmonary apex to the posterior costophrenic angles, with 7 mm thick coronal and sagittal MIP reformats. 1 mm thick dynamic expiratory images acquired through the upper, mid, and lower lungs. 1.0 mm thick axial sections acquired from the garry to the posterior costophrenic angles in the prone end-inspiration position. For radiation dose reduction, the following was used: automated exposure control, adjustment of mA and/or kV according to patient size. COMPARISON: [facility], CR, XR CHEST 2V, 06/14/2019, 21:16. [facility], CR, XR CHEST 1V, 02/04/2019, 19:50. [facility], CR, XR CHEST 2V, 07/17/2021, 11:27. FINDINGS: Image quality: Excellent. Lungs: There is increased reticulation and interlobular thickening in axial predominant distribution throughout the lungs. The posterior lung bases are largely spared relative to the perihilar portions. There is no honeycombing or cystic change. The pulmonary vessels within the lungs appear relatively enlarged relative to the accompanying airways. Pleura: Very small bilateral pleural effusions. No pneumothorax. Mediastinum: Normal heart size. Main pulmonary artery diameter of 4.2 centimeter. Multi-vessel coronary artery calcifications. No pericardial effusion. No enlarged mediastinal lymph nodes. Multinodular appearance of the thyroid. Bones and chest wall: No suspicious bony lesions. No vertebral body compression fractures. Degenerative changes of the shoulders and spine. Abdomen: No acute or suspicious findings. Multiple simple fluid density cyst in the left kidney, partially captured and measuring up to 6.5 centimeter in diameter. IMPRESSION: 1. Axial predominant interstitial changes in the lungs most suggestive of pulmonary edema or interstitial pneumonitis. 2. Engorgement of the pulmonary vessels which may represent a combination of pulmonary hypertension and vascular congestion. 3. Very small bilateral pleural effusions. 4. Multinodular appearance of the thyroid gland. 5. Simple appearing cysts of the partially visualized left kidney. Dictated by: Brandan Kate M.D. on 07/22/2021 at 20:26 Approved by: Brandan Kate M.D. on 07/22/2021 at 20:39
[2021-07-22 14:00] LABS: Add Manual Diff / Slide Review NO; Basophils Absolute Auto 0 /uL (0-100); Basophils Percent Auto 0.4 % (0-2); Eosinophils Absolute Auto 0 /uL (0-450); Eosinophils Percent Auto 0.5 % (2-4); Hematocrit 42.3 % (41-53); Hemoglobin 14.1 g/dL (13.5-17.5); Lymphocytes Absolute Auto 600 /uL (1100-4500); Lymphocytes Percent Auto 11.4 % (25-40); Mean Corpuscular HGB Conc 33.2 % (30-36); Mean Corpuscular Hemoglobin 32.7 PG (26-34); Mean Corpuscular Volume 98.4 fL (80-100); Monocytes Absolute Auto 100 /uL (0-900); Monocytes Percent Auto 1.4 % (3-14); Neutrophils Absolute Auto 4500 /uL (1500-7000); Neutrophils Percent Auto 86.3 % (50-75); Platelet Count 186 X10^3/uL (150-400); Red Cell Distribution Width 12.6 % (11.6-14.8); White Blood Cell Count 5.2 X10^3/uL (4.5-11.0)
[2021-07-22 14:31] LABS: BUN Creatinine Ratio 24.7 (6-22); Blood Urea Nitrogen 18 mg/dL (9-20); Calcium 9.5 mg/dL (8.4-10.2); Carbon Dioxide 30 mmol/L (22-32); Chloride 104 mmol/L (98-107); Estimated Glomerular Filt Rate > 60.0 mL/min (>60); Glucose 113 mg/dL (80-110); HEMOLYSIS < 15 (0-50); Potassium 4.6 mmol/L (3.4-5.1); Sodium 138 mmol/L (137-145)
== END ==
PROVIDERS: PCP Family Medicine; Referring Provider Internal Medicine Cardiovascular Disease; Visit Provider Internal Medicine Cardiovascular Disease
DX: R06.00 Dyspnea, unspecified (principal); I10 Essential (primary) hypertension; Z79.01 Long term (current) use of anticoagulants; N28.1 Cyst of kidney, acquired
CPT/HCPCS: 36415; 71250; 80048; 85025

== ENCOUNTER → 2021-08-03 08:05 | Outpatient (CLI) | payer MEDICARE, OTHER, SELFPAY ==
[2021-08-03 09:55] LABS: Add Manual Diff / Slide Review NO; Basophils Absolute Auto 0 /uL (0-100); Basophils Percent Auto 0.8 % (0-2); Eosinophils Absolute Auto 200 /uL (0-450); Eosinophils Percent Auto 3.8 % (2-4); Hemoglobin 13.6 g/dL (13.5-17.5); Lymphocytes Absolute Auto 900 /uL (1100-4500); Lymphocytes Percent Auto 14.7 % (25-40); Mean Corpuscular HGB Conc 33.1 % (30-36); Mean Corpuscular Hemoglobin 32.9 PG (26-34); Mean Corpuscular Volume 99.5 fL (80-100); Monocytes Absolute Auto 600 /uL (0-900); Monocytes Percent Auto 10.6 % (3-14); Neutrophils Absolute Auto 4100 /uL (1500-7000); Neutrophils Percent Auto 70.1 % (50-75); Platelet Count 170 X10^3/uL (150-400); Red Blood Cell Count 4.12 X10^6/uL (4.5-5.9); Red Cell Distribution Width 12.8 % (11.6-14.8); White Blood Cell Count 5.9 X10^3/uL (4.5-11.0)
[2021-08-03 11:22] LABS: BUN Creatinine Ratio 37.2 (6-22); Blood Urea Nitrogen 29 mg/dL (9-20); Calcium 9.3 mg/dL (8.4-10.2); Carbon Dioxide 30 mmol/L (22-32); Chloride 106 mmol/L (98-107); Cholesterol 142 mg/dL (140-199); Estimated Glomerular Filt Rate > 60.0 mL/min (>60); Glucose 83 mg/dL (80-110); HDL Cholesterol 39 mg/dL (40-60); HEMOLYSIS < 15 (0-50); LDL Cholesterol Calculated 70 mg/dL (<100); Potassium 4.9 mmol/L (3.4-5.1); Sodium 141 mmol/L (137-145); Triglycerides 164 mg/dL (35-150)
== END ==
PROVIDERS: PCP Family Medicine; Referring Provider Internal Medicine Cardiovascular Disease; Visit Provider Internal Medicine Cardiovascular Disease
DX: I10 Essential (primary) hypertension (principal); E78.5 Hyperlipidemia, unspecified; Z79.01 Long term (current) use of anticoagulants
CPT/HCPCS: 36415; 80048; 80061; 85025

== ENCOUNTER → 2021-09-02 08:09 | Outpatient (CLI) | payer MEDICARE, OTHER, SELFPAY ==
[2021-09-02 09:37] LABS: Blood Urea Nitrogen 32 mg/dL (9-20); Calcium 9.2 mg/dL (8.4-10.2); Carbon Dioxide 33 mmol/L (22-32); Chloride 104 mmol/L (98-107); Estimated Glomerular Filt Rate > 60.0 mL/min (>60); Glucose 87 mg/dL (80-110); HEMOLYSIS < 15 (0-50); Potassium 4.3 mmol/L (3.4-5.1); Sodium 140 mmol/L (137-145)
== END ==
PROVIDERS: PCP Family Medicine; Referring Provider Internal Medicine Cardiovascular Disease; Visit Provider Internal Medicine Cardiovascular Disease
DX: I50.32 Chronic diastolic (congestive) heart failure (principal)
CPT/HCPCS: 36415; 80048

== ENCOUNTER → 2022-05-16 08:39 | Outpatient (CLI) | payer MEDICARE, OTHER, SELFPAY ==
[2022-05-16 09:23] LABS: Add Manual Diff / Slide Review NO; Basophils Absolute Auto 0 /uL (0-100); Eosinophils Absolute Auto 200 /uL (0-450); Eosinophils Percent Auto 5.9 % (2-4); Hematocrit 35.5 % (41-53); Hemoglobin 12.2 g/dL (13.5-17.5); Lymphocytes Absolute Auto 1000 /uL (1100-4500); Lymphocytes Percent Auto 24.7 % (25-40); Mean Corpuscular HGB Conc 34.4 % (30-36); Mean Corpuscular Hemoglobin 33.6 PG (26-34); Mean Corpuscular Volume 97.7 fL (80-100); Monocytes Absolute Auto 500 /uL (0-900); Monocytes Percent Auto 11.6 % (3-14); Neutrophils Absolute Auto 2300 /uL (1500-7000); Neutrophils Percent Auto 56.8 % (50-75); Platelet Count 167 X10^3/uL (150-400); Red Blood Cell Count 3.63 X10^6/uL (4.5-5.9); Red Cell Distribution Width 12.4 % (11.6-14.8); White Blood Cell Count 4.1 X10^3/uL (4.5-11.0)
[2022-05-16 09:54] LABS: Alanine Aminotransferase 28 IU/L (<50); Albumin 3.7 g/dL (3.5-5.0); Albumin Globulin Ratio 1.7 (1.0-2.8); Alkaline Phosphatase 93 U/L (38-126); Aspartate Aminotransferase 33 IU/L (17-59); BUN Creatinine Ratio 29.9 (6-22); Bilirubin Total 0.7 mg/dL (0.2-1.3); Blood Urea Nitrogen 29 mg/dL (9-20); Calcium 8.5 mg/dL (8.4-10.2); Carbon Dioxide 26 mmol/L (22-32); Chloride 107 mmol/L (98-107); Cholesterol 145 mg/dL (140-199); Estimated Glomerular Filt Rate > 60 mL/min (>60); Globulin 2.2 g/dL (1.7-4.1); Glucose 96 mg/dL (80-110); HDL Cholesterol 31 mg/dL (40-60); HEMOLYSIS < 15 (0-50); LDL Cholesterol Calculated 76 mg/dL (<100); Potassium 4.4 mmol/L (3.4-5.1); Sodium 139 mmol/L (137-145); Total Protein 5.9 g/dL (6.3-8.2); Triglycerides 189 mg/dL (35-150)
[2022-05-16 10:24] LABS: TSH w/ Reflex to FT4 0.79 uIU/mL (0.47-4.68)
== END ==
PROVIDERS: PCP Family Medicine; Referring Provider Family Medicine; Visit Provider Family Medicine
DX: I10 Essential (primary) hypertension (principal); I48.0 Paroxysmal atrial fibrillation
CPT/HCPCS: 36415; 80053; 80061; 84443; 85025

== ENCOUNTER → 2022-10-13 11:56 | Outpatient (CLI) | payer MEDICARE, OTHER, SELFPAY ==
[2022-10-13 14:50] LABS: Influenza A - CEPHEID Flu A NEGATIVE (NEGATIVE); Influenza B - CEPHEID Flu B NEGATIVE (NEGATIVE); Respiratory Syncytial Virus Negative (Negative)
[2022-10-13 14:52] LABS: COVID-19 CEPHEID 4-PLEX PCR Negative (Negative)
== END ==
PROVIDERS: PCP Family Medicine; Visit Provider Registered Nurse
DX: R05.1 Acute cough (principal)
CPT/HCPCS: 0241U

== ENCOUNTER → 2022-11-06 09:45 | Outpatient (CLI) | payer MEDICARE, OTHER, SELFPAY ==
[2022-11-06 10:47] LABS: Add Manual Diff / Slide Review NO; Basophils Absolute Auto 0 /uL (0-100); Basophils Percent Auto 0.7 % (0-2); Eosinophils Absolute Auto 200 /uL (0-450); Eosinophils Percent Auto 3.4 % (2-4); Hematocrit 38.4 % (41-53); Hemoglobin 13.1 g/dL (13.5-17.5); Lymphocytes Absolute Auto 1100 /uL (1100-4500); Mean Corpuscular HGB Conc 34.2 % (30-36); Mean Corpuscular Hemoglobin 33.3 PG (26-34); Mean Corpuscular Volume 97.1 fL (80-100); Monocytes Absolute Auto 500 /uL (0-900); Monocytes Percent Auto 8.9 % (3-14); Neutrophils Absolute Auto 4000 /uL (1500-7000); Platelet Count 187 X10^3/uL (150-400); Red Blood Cell Count 3.95 X10^6/uL (4.5-5.9); Red Cell Distribution Width 12.4 % (11.6-14.8); White Blood Cell Count 5.9 X10^3/uL (4.5-11.0)
[2022-11-06 11:07] LABS: Alanine Aminotransferase 31 IU/L (<50); Albumin Globulin Ratio 1.5 (1.0-2.8); Alkaline Phosphatase 106 U/L (38-126); Aspartate Aminotransferase 32 IU/L (17-59); BUN Creatinine Ratio 28.6 (6-22); Bilirubin Total 0.9 mg/dL (0.2-1.3); Blood Urea Nitrogen 30 mg/dL (9-20); Calcium 8.9 mg/dL (8.4-10.2); Carbon Dioxide 27 mmol/L (22-32); Chloride 103 mmol/L (98-107); Cholesterol 152 mg/dL (140-199); Estimated Glomerular Filt Rate > 60 mL/min (>60); Globulin 2.6 g/dL (1.7-4.1); Glucose 83 mg/dL (80-110); HDL Cholesterol 25 mg/dL (40-60); HEMOLYSIS < 15 (0-50); LDL Cholesterol Calculated 75 mg/dL (<100); Potassium 4.1 mmol/L (3.4-5.1); Sodium 139 mmol/L (137-145); Total Protein 6.6 g/dL (6.3-8.2); Triglycerides 259 mg/dL (35-150)
== END ==
PROVIDERS: PCP Family Medicine; Referring Provider Family Medicine; Visit Provider Family Medicine
DX: E78.5 Hyperlipidemia, unspecified (principal); I10 Essential (primary) hypertension
CPT/HCPCS: 36415; 80053; 80061; 85025

== ENCOUNTER → 2023-05-21 12:56 | Outpatient (CLI) | payer MEDICARE, OTHER, SELFPAY ==
[2023-05-21 13:47] LABS: Add Manual Diff / Slide Review NO; Basophils Absolute Auto 100 /uL (0-100); Basophils Percent Auto 0.8 % (0-2); Eosinophils Absolute Auto 200 /uL (0-450); Eosinophils Percent Auto 3.6 % (2-4); Hematocrit 39.8 % (41-53); Hemoglobin 13.6 g/dL (13.5-17.5); Lymphocytes Absolute Auto 1300 /uL (1100-4500); Lymphocytes Percent Auto 21.3 % (25-40); Mean Corpuscular HGB Conc 34.1 % (30-36); Mean Corpuscular Hemoglobin 34.3 PG (26-34); Mean Corpuscular Volume 100.4 fL (80-100); Monocytes Absolute Auto 500 /uL (0-900); Monocytes Percent Auto 7.8 % (3-14); Neutrophils Absolute Auto 3900 /uL (1500-7000); Neutrophils Percent Auto 66.5 % (50-75); Platelet Count 185 X10^3/uL (150-400); Red Blood Cell Count 3.97 X10^6/uL (4.5-5.9); Red Cell Distribution Width 13.1 % (11.6-14.8); White Blood Cell Count 5.9 X10^3/uL (4.5-11.0)
[2023-05-21 14:02] LABS: BUN Creatinine Ratio 24.5 (6-22); Blood Urea Nitrogen 27 mg/dL (9-20); Calcium 8.7 mg/dL (8.4-10.2); Carbon Dioxide 31 mmol/L (22-32); Chloride 103 mmol/L (98-107); Estimated Glomerular Filt Rate > 60 mL/min (>60); Glucose 124 mg/dL (80-110); HEMOLYSIS 22 (0-50); Potassium 4.8 mmol/L (3.4-5.1); Sodium 138 mmol/L (137-145)
== END ==
PROVIDERS: PCP Family Medicine; Referring Provider Internal Medicine Cardiovascular Disease; Visit Provider Internal Medicine Cardiovascular Disease
DX: I50.32 Chronic diastolic (congestive) heart failure (principal)
CPT/HCPCS: 36415; 80048; 85025

== ENCOUNTER → 2023-06-01 13:42 | Outpatient (CLI) | payer MEDICARE, OTHER, SELFPAY ==
--- NOTE | 2023-06-01 13:45 | DI.US.S_ITS ---
PROCEDURE: US ABDOMEN LIMITED INDICATIONS: CHEST WALL ANTERIOR LEFT LOWER TECHNIQUE: Real-time focused scanning was performed of the abdomen, with image documentation. COMPARISON: None. FINDINGS: There is a focus of decreased echogenicity without vascularity in the left lower chest measuring 2.1 x 1.2 x 1.9 cm. IMPRESSION: A vascular solid-appearing mass within the left lower chest. It does not appear consistent with a simple lipoma and cannot be further characterized on the basis of this exam. MRI is recommended for further evaluation. Dictated by: Oly Mcnulty M.D. on 06/01/2023 at 19:13 Approved by: Oly Mcnulty M.D. on 06/01/2023 at 19:14
== END ==
PROVIDERS: PCP Family Medicine; Referring Provider Physician Assistant; Visit Provider Physician Assistant
DX: R22.2 Localized swelling, mass and lump, trunk (principal)
CPT/HCPCS: 76705

== ENCOUNTER → 2023-06-14 15:51 | Outpatient (CLI) | payer MEDICARE, OTHER, SELFPAY ==
--- NOTE | 2023-06-14 15:54 | DI.MRI.S_ITS ---
PROCEDURE: MR ABDOMEN WO/W CON INDICATIONS: Abnormal US 06/01 TECHNIQUE: Axial 2-D FLASH in- and [id number], axial breath-hold T2 FSE, axial STIR FSE. Optional contrast may be given, followed by axial 2-D FLASH with fat saturation acquired over the lesion of concern. COMPARISON: [facility], CT, CT CHEST HIGH RESOLUTION, 07/22/2021, 16:19. [facility], US, US ABDOMEN LIMITED, 06/01/2023, 13:51. FINDINGS: Image quality: Excellent. Region of interest: The indicated area of interest in the anterior left lower chest wall corresponds to a normal costochondral junction, symmetric to the contralateral side. There is no rib or cartilage lesion. No unusual enhancement. Subcutaneous tissues appear normal. ABDOMEN: Liver: Markedly T1 and T2 hypointense. Occasional cysts. No suspicious arterial enhancement. Gallbladder: Normal wall thickness. No visible calculi. Biliary ducts: Nondilated. Pancreas: Slightly diminutive. No ductal dilatation. Spleen: Normal size. Adrenal Glands: The right adrenal gland is normal without nodule. The left adrenal gland is displaced inferomedially. No definite lesion. Kidneys and Ureters: Symmetric parenchymal enhancement. No hydronephrosis. There are several cysts arising from each kidney, most prominently arising from the left kidney and an exophytic fashion. The largest cyst is unilocular measuring 14.2 cm in diameter and arising anteriorly. One cyst arising from left upper pole contains a trace amount of dependent proteinaceous material. From the posterior lower pole of the left kidney, there is a minimally exophytic a solid enhancing mass measuring 2.4 x 2.5 x 2.2 cm. Slightly more cranial along the posterior cortex, there is an exophytic solid enhancing mass measuring 2.1 x 1.6 by 1.5 cm closely associated with the inferior wall of an adjacent 6.9 cm cyst. Lymph nodes: No visible retroperitoneal or mesenteric adenopathy. Stomach and bowel: Visible portions within normal limits. Peritoneum: No visible free fluid. IMPRESSION: 1. The indicated area of concern in the anterior left lower chest wall corresponds to prominent, but not asymmetric costochondral margin. No suspicious features. 2. There are two suspicious solid enhancing lesions arising from the lower pole of left kidney, the larger measuring 2.5 cm highly suspicious for renal cell carcinoma. Urology consult is recommended. 3. Markedly T1 and T2 hypointense liver with scattered cysts. This is suggestive of heavy metal deposition such as hemochromatosis. Correlate with lab values. Notably, pancreas and myocardial maintain normal signal. Dictated by: Muriel Garcia M.D. on 06/15/2023 at 10:01 Approved by: Muriel Garcia M.D. on 06/15/2023 at 10:27
== END ==
PROVIDERS: PCP Family Medicine; Referring Provider Physician Assistant; Visit Provider Physician Assistant
DX: N28.9 Disorder of kidney and ureter, unspecified (principal); K76.89 Other specified diseases of liver; R22.2 Localized swelling, mass and lump, trunk; R93.5 Abnormal findings on diagnostic imaging of other abdominal regions, including retroperitoneum
CPT/HCPCS: 74183; A9579

== ENCOUNTER → 2023-06-20 08:13 | Outpatient (CLI) | payer MEDICARE, OTHER, SELFPAY ==
[2023-06-20 09:59] LABS: Alanine Aminotransferase 29 IU/L (<50); Albumin 3.7 g/dL (3.5-5.0); Albumin Globulin Ratio 1.8 (1.0-2.8); Alkaline Phosphatase 87 U/L (38-126); Aspartate Aminotransferase 28 IU/L (17-59); Bilirubin Total 0.4 mg/dL (0.2-1.3); Bilirubin Unconjugated 0.3 mg/dL (0.0-1.1); Globulin 2.1 g/dL (1.7-4.1); HEMOLYSIS < 15 (0-50); Total Protein 5.8 g/dL (6.3-8.2)
[2023-06-20 10:06] LABS: HEMOLYSIS < 15 (0-50); Iron 167 ug/dL (49-181)
[2023-06-20 10:16] LABS: Total Iron Binding Capacity 215 ug/dL (261-462); Transferrin 141 mg/dL (206-381)
[2023-06-20 10:19] LABS: Percent Iron Saturation 78 % (20-50)
[2023-06-20 10:28] LABS: Ferritin 769 ng/mL (18-464)
== END ==
PROVIDERS: PCP Family Medicine; Referring Provider Physician Assistant; Visit Provider Physician Assistant
DX: E83.119 Hemochromatosis, unspecified (principal)
CPT/HCPCS: 36415; 80076; 82728; 83540; 83550

== ENCOUNTER → 2023-06-22 08:52 | Outpatient (CLI) | payer MEDICARE, OTHER, SELFPAY ==
[2023-06-22 09:23] LABS: BUN Creatinine Ratio 26.2 (6-22); Blood Urea Nitrogen 27 mg/dL (9-20); Estimated Glomerular Filt Rate > 60 mL/min (>60)
--- NOTE | 2023-06-22 09:39 | DI.CT.S_ITS ---
PROCEDURE: CT ABDOMEN RENAL PROTOCOL INDICATIONS: Incidentally found left renal lesion TECHNIQUE: Optional 5 mm thick noncontrast images acquired from the diaphragm to the iliac crests. After the administration of intravenous contrast, 5 mm thick images again acquired from the diaphragm to the iliac crests in the arterial and urographic phases. 5 mm thick coronal and sagittal reformats were then acquired. For radiation dose reduction, the following was used: automated exposure control, adjustment of mA and/or kV according to patient size. COMPARISON: [facility], CT, CT CHEST HIGH RESOLUTION, 07/22/2021, 16:19. [facility], MR, MR ABDOMEN WO/W CON, 06/14/2023, 16:19. [facility], US, US ABDOMEN LIMITED, 06/01/2023, 13:51. FINDINGS: Image quality: Excellent. Lung bases: Lung bases are clear. Heart size is normal. Genitourinary: No hydronephrosis or nephrolithiasis is found. There are several scattered small renal cortical cysts on the right. In contrast the left kidney contains several large water density renal cortical cysts, the largest of which is projecting anteriorly and measures up to approximately 10 cm transverse, 6 cm AP and 13 cm craniocaudad. A a smaller posterior directed mid to lower renal cortical cyst measures approximately 6.6 by 6.5 by 6.9 cm, and at the inferior border of this cyst is a cortical small masslike structure with what appears to be a small central cystic component, best seen centered on series 3, image 37 arterial phase contrast enhancement and also seen on delayed excretion phase enhancement imaging series 5, image 37. The small solid component enhances mildly. Even more inferiorly at the posterior lower 3rd cortex of the left kidney is a solid mass, ovoid, measuring up to 2.8 cm in dimension and seen on series 3, image 41 and series 5, image 41 in the arterial and excretion phase imaging, respectively this mass without contrast enhancement measures 31 Hounsfield units, and during the arterial phase of contrast enhancement rises to 79 Hounsfield units. There is mild washout of contrast with the internal radiodensity reducing to 74 Hounsfield units. Each of these masses was also seen on recent MR scanning from 06/14/23. Other solid organs: Liver is normal in size and enhancement. Gallbladder normal . Biliary system is non dilated. Pancreas enhances normally. Spleen is normal in size and enhancement. No adrenal nodules. Peritoneum and bowel: Unenhanced bowel loops are normal in wall thickness and caliber. No free fluid or air. Nodes and vessels: No retroperitoneal or mesenteric adenopathy by size criteria. Aorta and inferior vena cava are normal in caliber. Bones: No suspicious bony lesions. No vertebral body compression fractures. Miscellaneous: No ventral hernias. IMPRESSION: 1. Two separate left renal cortical masses beyer identified on recent MR scanning performed 06/14/23 and both are seen on this study. The larger 2.8 cm solid mass lesion is at the posterior lower 3rd cortex of the left kidney and significantly enhances during the arterial phase of contrast enhancement when compared to pre contrast imaging and then washes out on delayed excretion phase imaging to mild degree. The smaller mass discussed above is separate, more superior, and also enhances. It is at the inferior border of a moderately large left renal cortical cyst, and it appears partially cystic and solid. This measures just under 2 cm in maximal dimension. 2. Normal right kidney. No nephrolithiasis found. Multiple left renal cortical water density cysts that are moderate and large in size and generally exophytic. 3. No evidence of metastatic disease. Dictated by: Gaston Steward M.D. on 06/22/2023 at 15:39 Approved by: Gaston Steward M.D. on 06/22/2023 at 16:01
== END ==
PROVIDERS: Physician Assistant; PCP Family Medicine; Referring Provider Urology; Visit Provider Urology
DX: C64.9 Malignant neoplasm of unspecified kidney, except renal pelvis (principal); N28.89 Other specified disorders of kidney and ureter; N28.1 Cyst of kidney, acquired; Z01.812 Encounter for preprocedural laboratory examination
CPT/HCPCS: 36415; 74170; 82565; 84520; Q9967

== ENCOUNTER 2023-07-28 18:02 | Emergency (ER) | payer MEDICARE, OTHER, SELFPAY ==
[2023-07-28] VITALS (14 sets, daily range): BP systolic 100–115; BP diastolic 51–63; PULSE 84–113; RESP 18–31; TEMP 36.6–36.8; O2SAT 93–100; BMI 25.1
--- NOTE | 2023-07-28 18:14 | DI.CT.S_ITS ---
PROCEDURE: CT HEAD/BRAIN WO CON INDICATIONS: Fall three days ago; possible stroke. TECHNIQUE: Noncontrast 4.5 mm thick angled axial sections acquired from the foramen magnum to the vertex, with coronal and sagittal reformats. For radiation dose reduction, the following was used: automated exposure control, adjustment of mA and/or kV according to patient size. COMPARISON: [facility], CT, CT HEAD/BRAIN WO CON, 06/14/2019, 20:53. FINDINGS: Image quality: Excellent. CSF spaces: Basal cisterns are patent. No extra-axial fluid collections. The ventricles are symmetric in size and shape. Brain: No intracranial bleeds or masses. There is cerebral volume loss for age, with resultant ventricular and sulcal prominence. There are periventricular and deep white matter chronic small vessel ischemic changes. There is intracranial internal carotid artery atherosclerosis. Skull and face: Calvarium and visualized facial bones appear intact, without suspicious lesions. Sinuses: Visualized sinuses and mastoids are clear. IMPRESSION: 1. No acute intracranial abnormalities. 2. Cerebral volume loss and chronic microvascular ischemic changes. Dictated by: Unruly Alcantar M.D. on 07/28/2023 at 19:50 Approved by: Unruly Alcantar M.D. on 07/28/2023 at 19:51
--- NOTE | 2023-07-28 18:29 | DI.RAD.S_ITS ---
PROCEDURE: XR PELVIS 1-2V INDICATIONS: Fall. TECHNIQUE: 1 view(s) of the pelvis acquired. COMPARISON: None. FINDINGS: Bones: No fractures or dislocations. No suspicious bony lesions. 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 Soft tissues: Visualized bowel gas pattern is normal. No suspicious soft tissue calcifications. IMPRESSION: No acute osseous abnormality. If clinical symptoms persist or clinical suspicion for pathology is high, a repeat examination in 7-10 days, or advanced imaging such as CT or MRI is suggested for further evaluation. Dictated by: Unruly Alcantar M.D. on 07/28/2023 at 20:07 Approved by: Unruly Alcantar M.D. on 07/28/2023 at 20:08
--- NOTE | 2023-07-28 18:31 | ED_ITS ---
HPI - Neuro Symptoms/Deficit General Chief Complaint: Neuro Symptoms/Deficit Stated Complaint: thinks may have had a stroke Time Seen by Provider: 07/28/23 18:12 Source: patient, RN notes reviewed and old records reviewed Mode of arrival: Ambulatory Limitations: no limitations History of Present Illness HPI Narrative: This is an 88-year-old male with history of atrial fibrillation on Eliquis, hypertension, dyslipidemia, asthma on Advair and albuterol and Spiriva who presents with concern for possible stroke. Patient states he does not think that he had a stroke he states do days ago on Sunday night he woke up on the floor next to his bed. He states he does not recall how he got there. Patient states since then he is had pain in his buttocks it has been painful to walk or lift his legs. Has gotten to the bathroom but has been very difficult. He denies headache, no vision changes, no neck pain. No chest pain or shortness of breath. No nausea or vomiting, and patient denies any syncope that he is aware of but does not know how he ended up on the floor. He denies back pain. He states he has pain in his buttocks and pain with movement of his legs. He denies any abdominal or flank pain. No dysuria urgency or frequency. He states that he had urinated himself when he woke up on the floor. He denies any diarrhea constipation states he has been stooling regularly. He has been able to get back and forth to the bathroom but with difficulty. Pain with lifting of his legs and states it feels weak in both legs but not laterally. He has some bruising of his left foot and states that it was painful. Patient is on apixaban daily. He states no new medications. He and his family state no difficulty with speech, no lateralizing weakness, they do not report any other acute neurologic changes. They are visiting today he has 4 children in the room with him he states he did have 3 alcoholic drinks today because they are visiting. States that he does not drink every day but just when family is visiting. Denies tobacco, denies daily alcohol, denies illicit. Primary care is Dr. Mcdonnell. He presents today after family reached out to Dr. Mcdonnell's office and was recommended to come for evaluation. Related Data Home Medications Medication Instructions Recorded Confirmed montelukast 10 mg tablet 10 mg PO BEDTIME 03/03/21 07/17/23 apixaban 5 mg tablet 5 mg PO BID 07/26/21 07/17/23 flecainide 100 mg tablet 100 mg PO Q8H PRN arrythmia 07/26/21 07/17/23 nitroglycerin 0.4 mg sublingual 0.4 mg sublingual Q5-15M PRN 07/26/21 07/17/23 tablet spironolactone 25 mg tablet 25 mg PO DAILY 07/26/21 07/17/23 furosemide 20 mg tablet 0 mg PO 07/17/23 07/17/23 losartan 50 mg tablet 50 mg PO DAILY 07/17/23 07/17/23 Previous Rx's Medication Instructions Recorded atorvastatin 20 mg tablet (Lipitor) 20 mg PO HS #90 tabs 04/15/21 azelastine 137 mcg (0.1 %) nasal 1 spray intranasal BID #30 mL 07/17/21 spray aerosol metoprolol succinate 50 mg 25 mg PO DAILY #90 tabs 05/22/23 tablet,extended release 24 hr fluticasone 250 mcg-salmeterol 50 1 inh inhalation BID #60 ea 06/14/23 mcg/dose blistr powdr for inhalation (Wixela Inhub) tiotropium bromide 18 mcg capsule 1 cap inhalation DAILY #60 06/14/23 with inhalation device (Spiriva inhalations with HandiHaler) tamsulosin 0.4 mg capsule (Flomax) 0.4 mg PO DAILY #90 caps 07/16/23 albuterol sulfate 90 mcg/actuation 2 puff inhalation Q4HP PRN 07/19/23 aerosol inhaler (Ventolin HFA) shortness of breath or wheezing #1 inh amoxicillin 875 mg-potassium 1 tab PO BID #20 tabs 07/28/23 clavulanate 125 mg tablet Allergies Allergy/AdvReac Type Severity Reaction Status Date / Time venom-honey bee Allergy Severe severe Verified 07/17/23 11:58 [BEE VENOM (HONEY BEE)] edema Review of Systems Review of Systems ROS Unobtainable: All systems reviewed & are unremarkable except as noted in HPI and below Patient History Medical History Ankle pain (06/2016) Asthma Basal cell carcinoma (BCC) of right cheek (09/04/16) Cataract (12/2015) Colon polyps (06/30/11) COPD exacerbation Eczema Foot pain (06/2016) Hayfever Lesion of left tolowa dee-ni' kidney Renal cyst URI (upper respiratory infection) Surgical History History of basal cell carcinoma (BCC) excision (09/04/16) History of colonoscopy with polypectomy (06/30/11) History of phacoemulsification of cataract of left eye with intraocular lens implantation (05/02/16) History of phacoemulsification of cataract of right eye with intraocular lens implantation (04/18/16) Family History Father Cancer Diabetes mellitus Hypertension Mother Cancer High cholesterol Grandfather No problems noted. Grandmother No problems noted. Grandfather No problems noted. Grandmother No problems noted. Social History marital status: Smoking Status: Never smoker alcohol intake: current substance use type: does not use Smoking Status: Never smoker alcohol intake frequency: 0-2 drinks per day Substance Use Type: does not use Exam Narrative Exam Narrative: GEN: Patient appears in mild distress. HEAD: No evidence of trauma, no raccoon/Blevins sign. NECK: Nontender, painless range of motion, trachea midline Negative Nexus criteria, no midline line tenderness, distracting injury, altered mental status, neuro deficit, recent EtOH. EYES: PERRLA, EOMI ENT: External inspection normal, trachea is midline, TM's are normal no hemotypanum, Nares are clear, no septal hematoma, no dental or oral injury, airway is normal and with normal occlusion, No bony tenderness RESP: Chest is nontender and has symmetric movement, no ecchymosis, breath sounds are normal no crackles, wheezes or rales CVS: Heart sounds are normal, no murmur noted, No JVD. ABG/GI: Nontender, soft, normal bowel sounds, no distention, no organomegaly, pelvic rock is negative NEURO: Oriented AOx3, neuro is grossly intact, sensation and motor is normal all 4 extremities moving, cranial nerves II through XII are intact, GCS is 15. 5/5 muscle strength upper and lower extremities. Normal heel-stephens and finger-nose. PSYCH: Normal mood and affect SKIN: Intact, warm and dry, no crepitus and without decubitus BACK: No CVA tenderness, no vertebral tenderness, no step-off's, no crepitus, patient is able to sit forward that is not worsened if symptoms. EXT: hips are nontender, no pedal edema, normal color and temperature, normal range of motion of extremities with normal tendon exam, 2+ pulses in all four extremities. Patient has some mild tenderness over the dorsum of the foot but no clear bony tenderness of the left foot. He does have some ecchymosis over the distal dorsum and the tops of the toes particularly toes 2 3 and 4. No obvious deformity. No warmth. No lacerations or abrasions. Initial Vital Signs Initial Vital Signs: Vital Signs Temperature 97.9 F 07/28/23 18:15 Pulse Rate 86 07/28/23 18:15 Respiratory Rate 18 07/28/23 18:15 Blood Pressure 102/56 L 07/28/23 18:15 Pulse Oximetry 95 07/28/23 18:15 Oxygen Delivery Method Room Air 07/28/23 18:15 Scores GCS He coma scale eye opening: Spontaneous [place] coma scale verbal response: Orientated [place] coma scale motor response: Obey commands [place] coma scale total score: 15 NIH Stroke Scale Level of Conciousness: Alert, keenly responsive Ask month/age: Answers both questions correctly. Open/close eyes, close hand: Performs both tasks correctly Best gaze horizontal: Normal Visual lamar: No visual loss Facial palsy: Normal symetrical movement Left arm drift: No drift for full 10 sec Right arm drift: No drift for full 10 sec Left leg drift: No drift for full 5 sec Right leg drift: No drift for full 5 sec Limb ataxia: Absent Sensory on face/arms/legs: Normal, no sensory loss Best language: No aphasia, normal Dysarthria: Normal Extinction or inattention: No abnormality Total NIH Stroke scale score: 0 Course Orders Ordered: ED Orders 07/28/23 20:56 CT angio chest PE protocol Stat 07/28/23 21:06 EKG-12 Lead Stat 07/28/23 21:10 Trop I [Troponin I] Stat Discontinued Medications Acetaminophen (Acetaminophen 325 Mg Tablet) 975 mg PO NOW ONE Stop: 07/28/23 18:45 Last Admin: 07/28/23 20:10 Dose: 975 mg Documented By: Albuterol/Ipratropium (Albuterol/Ipratropium 3 Ml Ampul) 3 ml INH NOW ONE Stop: 07/28/23 19:57 Last Admin: 07/28/23 20:05 Dose: 3 ml Documented By: MR Amoxicillin/Clavulanate Potassium (Amoxicillin/Clav 875/125 Mg) 1 tab PO NOW ONE Stop: 07/28/23 22:15 Last Admin: 07/28/23 22:25 Dose: 1 tab Documented By: Sodium Chloride (Normal Saline 0.9%) 1,000 mls @ 1,000 mls/hr IV BOLUS ONE Stop: 07/28/23 19:43 Last Infusion: 07/28/23 21:11 Dose: 0 mls/hr Documented By: Admin: 07/28/23 20:10 Dose: 1,000 mls/hr Documented By: Vital Signs Vital signs: Vital Signs - 8 hr 07/28/23 21:01 07/28/23 21:39 07/28/23 21:40 Temperature 98.2 F Pulse Rate 90 Respiratory Rate Blood Pressure 106/52 L Pulse Oximetry 99 Oxygen Delivery Method 07/28/23 21:40 07/28/23 22:00 07/28/23 22:00 Temperature Pulse Rate 90 89 Respiratory Rate 25 H 24 Blood Pressure 100/51 L Pulse Oximetry 100 100 Oxygen Delivery Method Room Air MDM - Neuro Symptoms/Deficit Lab Data 07/28/23 18:56 07/28/23 18:56 Labs: Lab Results 07/28/23 07/28/23 07/28/23 Range/Units 18:56 18:56 18:56 WBC 8.1 (4.5-11.0) X10^3/uL RBC 3.49 L (4.5-5.9) X10^6/uL Hgb 11.8 L (13.5-17.5) g/dL Hct 34.6 L (41-53) % MCV 99.2 (80-100) fL MCH 34.0 (26-34) PG MCHC 34.2 (30-36) % RDW 12.9 (11.6-14.8) % Plt Count 226 (150-400) X10^3/uL Neut % (Auto) 70.4 (50-75) % Lymph % (Auto) 11.5 L (25-40) % Dickenson % (Auto) 17.2 H (3-14) % Eos % (Auto) 0.3 L (2-4) % Baso % (Auto) 0.6 (0-2) % Neut # (Auto) 5700 (0742-7927) /uL Lymph # (Auto) 900 L (3291-7615) /uL Dickenson # (Auto) 1400 H (0-900) /uL Eos # (Auto) 0 (0-450) /uL Baso # (Auto) 0 (0-100) /uL PT 17.8 H (10.1-12.7) SECONDS INR 1.5 H (0.9-1.3) APTT 28 (26-36) SECONDS D-Dimer (<500) ng/ml Sodium 136 L (137-145) mmol/L Potassium 4.3 (3.4-5.1) mmol/L Chloride 104 (98-107) mmol/L Carbon Dioxide 25 (22-32) mmol/L BUN 28 H (9-20) mg/dL Creatinine 1.14 (0.66-1.25) mg/dL Estimated GFR > 60 (>60) mL/min BUN/Creatinine Ratio 24.6 H (6-22) Glucose 99 (80-110) mg/dL Calcium 8.7 (8.4-10.2) mg/dL Total Bilirubin 0.8 (0.2-1.3) mg/dL AST 54 (17-59) IU/L ALT 42 (<50) IU/L Alkaline Phosphatase 70 (38-126) U/L Total Creatine Kinase 545 H (55-170) U/L Troponin I 0.035 H (0.01-0.034) ng/mL Total Protein 6.4 (6.3-8.2) g/dL Albumin 3.7 (3.5-5.0) g/dL Globulin 2.7 (1.7-4.1) g/dL Albumin/Globulin Ratio 1.4 (1.0-2.8) Ethyl Alcohol < 10 ( - 10) mg/dL SARS-CoV-2 (PCR) (Negative) 09/01/1807/28/23 07/28/23 Range/Units 18:56 18:56 21:10 WBC (4.5-11.0) X10^3/uL RBC (4.5-5.9) X10^6/uL Hgb (13.5-17.5) g/dL Hct (41-53) % MCV (80-100) fL MCH (26-34) PG MCHC (30-36) % RDW (11.6-14.8) % Plt Count (150-400) X10^3/uL Neut % (Auto) (50-75) % Lymph % (Auto) (25-40) % Dickenson % (Auto) (3-14) % Eos % (Auto) (2-4) % Baso % (Auto) (0-2) % Neut # (Auto) (1238-5855) /uL Lymph # (Auto) (5103-4393) /uL Dickenson # (Auto) (0-900) /uL Eos # (Auto) (0-450) /uL Baso # (Auto) (0-100) /uL PT (10.1-12.7) SECONDS INR (0.9-1.3) APTT (26-36) SECONDS D-Dimer 1144 H (<500) ng/ml Sodium (137-145) mmol/L Potassium (3.4-5.1) mmol/L Chloride (98-107) mmol/L Carbon Dioxide (22-32) mmol/L BUN (9-20) mg/dL Creatinine (0.66-1.25) mg/dL Estimated GFR (>60) mL/min BUN/Creatinine Ratio (6-22) Glucose (80-110) mg/dL Calcium (8.4-10.2) mg/dL Total Bilirubin (0.2-1.3) mg/dL AST (17-59) IU/L ALT (<50) IU/L Alkaline Phosphatase (38-126) U/L Total Creatine Kinase (55-170) U/L Troponin I 0.034 (0.01-0.034) ng/mL Total Protein (6.3-8.2) g/dL Albumin (3.5-5.0) g/dL Globulin (1.7-4.1) g/dL Albumin/Globulin Ratio (1.0-2.8) Ethyl Alcohol ( - 10) mg/dL SARS-CoV-2 (PCR) Negative (Negative) Imaging Data CT scan - chest: Radiologist's Impression: Adilson Negro I??88??M??1935 ? Allergy/Adv: venom-honey bee Close Chest CTA (Signed) Raul Brenner - 07/28/[address] (Signed) Unruly Alcantar - 07/28/23 Foot X-Ray (Signed) Katharine,Mattwilliamu - 07/28/23 Chest X-Ray (Signed) Katharine,Mattwilliamu - 07/28/23 Pelvis X-Ray (Signed) Katharine,Mattwilliam - 07/28/[address] (Signed) KatharineMattwilliam - 07/28/[address] (Signed) Gaston Steward - 06/22/23 Abdomen MRI (Signed) Muriel Garcia - 06/14/23 Abdomen Ultrasound (Signed) Oly Mcnulty - 06/01/[address] (Signed) Brandna Kate - 07/22/21 Chest X-Ray (Signed) Rajiv Nam - 07/17/21 Chest X-Ray (Signed) Gaston Steward - 04/23/20 Chest X-Ray (Signed) Julieta Alcantar - 03/30/[address] (Signed) Raul Brenner - 06/14/[address] (Signed) Raul Brenner - 06/14/19 Chest X-Ray (Signed) Raul Brenner - 06/14/19 Radiology Report (Cancelled) Sonido Mendez - 03/07/19 Myocardial Perfusion Scan Nuc Med (Signed) Sonido Mendez - 03/07/19 Myocardial Perfusion Scan Nuc Med (Cancelled) 03/07/19 Vascular Ultrasound (Signed) Alison Issa - 02/04/19 Chest X-Ray (Signed) Alison Issa - 02/04/[address] (Signed) Ion Sun - 01/22/19 Vascular Ultrasound (Signed) Raul Brenner - 12/16/18 Launch?[address] [address] [address] Scan Report Signed Patient: Adilson Negro I MR#: [id number] : 1935 Acct:[id number] Age/Sex: 88 / M Date of Service: 07/28/23 Loc: ED Accession Number: [id number] ?? Procedure: CT angio chest PE protocol Ordering Provider: Caroline Small D.O. PROCEDURE:? CT ANGIO CHEST PE PROTOCOL ? INDICATIONS:? Syncope vs. fall; elevated D-dimer; occasional sob ? TECHNIQUE:? After the administration of intravenous contrast, 2 mm thick sections acquired from the pulmonary apices to the posterior costophrenic angles.? 3-dimensional maximum intensity projection (MIP) coronal and sagittal reformats were then acquired through the thorax.? For radiation dose reduction, the following was used:? automated exposure control, adjustment of mA and/or kV according to patient size.? ? COMPARISON:? None. ? FINDINGS:? Image quality:? Excellent.? ? Pulmonary arteries:? Pulmonary arteries are prominent in size, and demonstrate no intraluminal filling defects to suggest central pulmonary embolism.? ? Lungs and pleura:? Moderate centrilobular emphysema is noted.? Hazy opacities in posterior aspect of bilateral lung lamar are seen with associated bronchiect asis.? No pleural effusions or pneumothorax.? Central and peripheral airways are patent.? ? Mediastinum:? Heart size is enlarged, without pericardial effusion.? Mildly enlarged left paratracheal lymph node is seen measures 1.2 cm in size series 4, image 48.? Bilateral hilar lymphadenopathy are also seen measures up to 1.7 cm in size in left hilar region.? Thoracic aorta is normal in caliber and enhancement.? Esophagus is normal in caliber, without hiatal hernia.? ? Bones and chest wall:? No suspicious bony lesions.? Ribs and thoracic spine appear intact throughout.? Thyroid gland is enlarged with heterogeneous hypodense areas suggestive of thyroid nodules.? No axillary or supraclavicular adenopathy.? ? Abdomen:? Visualized upper abdominal solid organs appear normal in the early arterial phase of enhancement.? Likely large left renal cysts are seen measures up to 9.7 x 7 cm in size in anterior cortex of left kidney. ? IMPRESSION:? ? 1. No evidence of pulmonary emboli.? Prominent size of pulmonary artery which can be seen associated with pulmonary vascular hypertension. ? 2. Cardiomegaly, no pericardial effusion.? Mildly enlarged mediastinal and bilateral hilar lymph nodes which may indicate reactive inflammatory nodes. ? 3. Hazy ground-glass opacities are seen scattered in bilateral lung lamar concerning for patchy pneumonitis versus pulmonary edema.? Moderate centrilobular emphysema.? No pleural effusion or pneumothorax. ? 4. Incidentally noted of enlarged thyroid gland with hypodense areas suggestive of nodular goiter.? Outpatient ultrasound thyroid follow-up is recommended. ? 5. Suggestion of large left renal cysts.? Outpatient ultrasound follow-up is also recommended. ? ? Dictated by: Raul Brenner M.D. on 07/28/2023 at 21:52 ? ? Approved by: Raul Brenner M.D. on 07/28/2023 at 21:57?? ECG Data Attestation: I personally reviewed and interpreted this ECG as follows: Interpretation: Sinus rhythm frequent PVC, rate 89 KS 156 QRS 80 QTC of 430. No acute ST elevation or depression. Sinus rhythm frequent PVC rate of 95 KS 156 QRS [address] QTC [address] No acute ST elevation or depression noted. MDM Narrative Medical decision making narrative: 88-year-old male presents with possible fall, syncope, loss versus neurologic event. Patient's NIH is 0 he describes waking up the floor had loss of bowel or bladder control does not remember how he got there this was Sunday night. He is for outside the window for a stroke and intervention. He has no other acute neurologic changes making stroke seem much less likely. He does have pain in the buttocks region. He has no bony tenderness head CT C-spine, chest and x-ray of the pelvis were obtained. Patient had labs shows indeterminate troponin patient has had no chest pain or shortness of breath but did have possible syncopal episode so dimer was included this is elevated, repeat troponin trending down words., EKG which shows no acute changes. Hemoglobin is 11 was 13 3 months ago. Patient does sometimes have breathing difficulties, he had cough so was given a breathing treatment. He missed his usual inhalers at home this evening. He felt better after this. CT angio showed no pulmonary emboli, does have some changes that could be associated with pulmonary vascular hypertension, cardiomegaly but no effusion. Mildly enlarged mediastinal bilateral hilar lymph nodes may indicate reactive inflammatory nodes hazy ground-glass opacities bilateral lung lamar concerning for patchy pneumonitis versus pulmonary edema and moderate centrilobular emphysema. No effusion or pneumothorax, enlarged thyroid and large renal cyst. Patient has ambulated in the department without any issue. Rest of patient's imaging including CT of head, C-spine chest and pelvis x-ray do not show any other acute changes. Patient expresses that he would like to return home. Patient does not appear to be having COPD exacerbation but does have some patchy pneumonitis changes was covered with an oral antibiotic. Patient and family are already aware of his thyroid and renal cysts. They feel comfortable with patient returning home. Stroke Core Measures Exclusion Criteria TPA in CVA: Symptom Onset >3 or 4.5 Hours Discharge Plan Departure Patient Disposition: Home Clinical Impression: Enlargement of thyroid, Cyst of left kidney Activity Restrictions/Additional Instructions: It is unclear if you had a syncopal episode versus fall the other night. My suspicion for stroke being the cause of your symptoms is low. You may take Tylenol up to a 1000 mg every 6 hours as needed for pain. Your workup today shows possible infection, I would treat you with an oral antibiotic as you have had recent cough with your history of lung disease. Prescription sent to [facility] in [place]. Incidentally your imaging did show an enlarged thyroid gland as well as some large left renal cysts. These should be followed up with your primary care they can obtain ultrasound for follow-up. Please return for recurrent episodes, new chest pain, shortness of breath, coughing up blood, passing out, new swelling of her extremities no abdominal back or flank pain or other new or concerning changes. Prescriptions: New amoxicillin-pot clavulanate 875-125 mg tablet 1 tab PO BID Qty: 20 0RF No Action azelastine 137 mcg (0.1 %) aerosol,spray 1 spray intranasal BID Qty: 30 0RF Rx Instructions: administer into each nostril metoprolol succinate 50 mg tablet extended release 24 hr 25 mg PO DAILY Qty: 90 3RF Spiriva with HandiHaler 18 mcg capsule, w/inhalation device 1 cap inhalation DAILY Qty: 60 1RF Rx Instructions: puncture 1 cap using device; one dose = 2 inhalations fluticasone propion-salmeterol [Wixela Inhub] 250-50 mcg/dose blister with device 1 inh inhalation BID Qty: 60 1RF atorvastatin [Lipitor] 20 mg tablet 20 mg PO HS Qty: 90 3RF apixaban 5 mg tablet 5 mg PO BID flecainide 100 mg tablet 100 mg PO Q8H PRN (Reason: arrythmia) nitroglycerin 0.4 mg tablet, sublingual 0.4 mg sublingual Q5-15M PRN Rx Instructions: do not exceed 3 doses per episode spironolactone 25 mg tablet 25 mg PO DAILY tamsulosin [Flomax] 0.4 mg capsule 0.4 mg PO DAILY Qty: 90 3RF Ventolin HFA 90 mcg/actuation HFA aerosol inhaler 2 puff Inhalation Q4HP PRN (Reason: shortness of breath or wheezing) Qty: 1 5 RF montelukast 10 mg Tablet 10 mg PO BEDTIME furosemide 20 mg tablet 0 mg PO losartan 50 mg tablet 50 mg PO DAILY Referrals: Zurdo Mcdonnell MD [Primary Care Provider] - Stand Alone Forms: Patient Portal/API
--- NOTE | 2023-07-28 18:42 | DI.RAD.S_ITS ---
PROCEDURE: XR CHEST 1V INDICATIONS: Fall. TECHNIQUE: One view of the chest was acquired. COMPARISON: [facility], CR, XR CHEST 2V, 06/14/2019, 21:16. [facility], CR, XR CHEST 2V, 04/23/2020, 11:12. [facility], CR, XR CHEST 2V, 07/17/2021, 11:27. [facility], CR, XR CHEST 1V, 02/04/2019, 19:50. FINDINGS: Surgical changes and devices: None. Lungs and pleura: There are respiratory motions. Bilateral interstitial prominence. No focal consolidation. No pleural effusions or pneumothorax. Mediastinum: Mediastinal contours appear normal. Heart size is normal. Bones and chest wall: No suspicious bony lesions. Overlying soft tissues appear unremarkable. IMPRESSION: Portable chest within normal limits for age. Dictated by: Unruly Alcantar M.D. on 07/28/2023 at 19:56 Approved by: Unruly Alcantar M.D. on 07/28/2023 at 19:57
--- NOTE | 2023-07-28 18:42 | DI.RAD.S_ITS ---
PROCEDURE: XR FOOT LT MIN 3V INDICATIONS: Fall. TECHNIQUE: 3 views of the foot were acquired. COMPARISON: None. FINDINGS: Bones: No fractures or dislocations. No suspicious bony lesions. Osteopenia. Mild osteoarthritic changes in ankle and foot. Calcaneal spurring. Soft tissues: No tibiotalar joint effusion. Achilles tendon appears normal. IMPRESSION: No definitive fracture. If clinical symptoms persist or clinical suspicion for pathology is high, a repeat examination in 7-10 days, or advanced imaging such as CT or MRI is suggested for further evaluation. Dictated by: Unruly Alcantar M.D. on 07/28/2023 at 20:08 Approved by: Unruly Alcantar M.D. on 07/28/2023 at 20:09
--- NOTE | 2023-07-28 18:45 | DI.CT.S_ITS ---
PROCEDURE: CT CERVICAL SPINE WO CON INDICATIONS: Fall. TECHNIQUE: Noncontrast 3 mm thick sections acquired from the skull base to the T4 level. Sagittal and coronal reformats were then constructed. For radiation dose reduction, the following was used: automated exposure control, adjustment of mA and/or kV according to patient size. COMPARISON: [facility], CR, XR CHEST 1V, 07/28/2023, 19:30. [facility], CT, CT CERVICAL SPINE WO CON, 06/14/2019, 20:53. FINDINGS: Image quality: Mild motion artifact. Bones: No fractures or dislocations. Degenerative disc and facet disease in cervical spine. Visualized superior ribs are intact. Osteopenia. Soft tissues: Prevertebral soft tissues are normal in thickness. No paravertebral hematomas. No apical pneumothoraces. There is a subpleural lipoma in the left lower lobe. Respiratory motion artifacts are noted. IMPRESSION: 1. No cervical spine fracture. Dictated by: Unruly Alcantar M.D. on 07/28/2023 at 19:51 Approved by: Unruly Alcantar M.D. on 07/28/2023 at 19:54
[2023-07-28 19:12] LABS: Add Manual Diff / Slide Review NO; Basophils Absolute Auto 0 /uL (0-100); Basophils Percent Auto 0.6 % (0-2); Eosinophils Absolute Auto 0 /uL (0-450); Eosinophils Percent Auto 0.3 % (2-4); Hematocrit 34.6 % (41-53); Hemoglobin 11.8 g/dL (13.5-17.5); Lymphocytes Absolute Auto 900 /uL (1100-4500); Lymphocytes Percent Auto 11.5 % (25-40); Mean Corpuscular HGB Conc 34.2 % (30-36); Mean Corpuscular Volume 99.2 fL (80-100); Monocytes Absolute Auto 1400 /uL (0-900); Monocytes Percent Auto 17.2 % (3-14); Neutrophils Absolute Auto 5700 /uL (1500-7000); Neutrophils Percent Auto 70.4 % (50-75); Platelet Count 226 X10^3/uL (150-400); Red Blood Cell Count 3.49 X10^6/uL (4.5-5.9); Red Cell Distribution Width 12.9 % (11.6-14.8); White Blood Cell Count 8.1 X10^3/uL (4.5-11.0)
[2023-07-28 19:23] LABS: INR 1.5 (0.9-1.3); Prothrombin Time 17.8 SECONDS (10.1-12.7)
[2023-07-28 19:26] LABS: PTT Partial Thromboplastin Tim 28 SECONDS (26-36)
[2023-07-28 19:29] LABS: Alanine Aminotransferase 42 IU/L (<50); Albumin 3.7 g/dL (3.5-5.0); Albumin Globulin Ratio 1.4 (1.0-2.8); Alkaline Phosphatase 70 U/L (38-126); Aspartate Aminotransferase 54 IU/L (17-59); BUN Creatinine Ratio 24.6 (6-22); Bilirubin Total 0.8 mg/dL (0.2-1.3); Blood Urea Nitrogen 28 mg/dL (9-20); Calcium 8.7 mg/dL (8.4-10.2); Carbon Dioxide 25 mmol/L (22-32); Chloride 104 mmol/L (98-107); Creatine Kinase 545 U/L (55-170); Estimated Glomerular Filt Rate > 60 mL/min (>60); Ethanol (ETOH) < 10 mg/dL; Globulin 2.7 g/dL (1.7-4.1); Glucose 99 mg/dL (80-110); HEMOLYSIS < 15 (0-50); Potassium 4.3 mmol/L (3.4-5.1); Sodium 136 mmol/L (137-145); Total Protein 6.4 g/dL (6.3-8.2)
[2023-07-28 19:39] LABS: COVID19 -Nasal RAPID Negative (Negative)
[2023-07-28 19:40] LABS: Troponin I 0.035 ng/mL (0.01-0.034)
--- NOTE | 2023-07-28 20:00 | PC.NURSE ---
pt brought in by family after family came to visit and found out that pt may have fallen Fri day, they area also stating pt seems off, pt is awake and alert speech is clear, no deficits or injuries noted at this time
[2023-07-28] MEDS: ALBUTEROL/IPRATROPIUM 3 ML AMPUL INH (20:05)
[2023-07-28] MEDS: SODIUM CHLORIDE 0.9% 1,000 ML 1000 ML IV (20:10)
[2023-07-28] MEDS: ACETAMINOPHEN 325 MG TABLET 975 MG PO (20:10)
[2023-07-28 20:41] LABS: D Dimer 1144 ng/ml (<500)
--- NOTE | 2023-07-28 20:56 | DI.CT.S_ITS ---
PROCEDURE: CT ANGIO CHEST PE PROTOCOL INDICATIONS: Syncope vs. fall; elevated D-dimer; occasional sob TECHNIQUE: After the administration of intravenous contrast, 2 mm thick sections acquired from the pulmonary apices to the posterior costophrenic angles. 3-dimensional maximum intensity projection (MIP) coronal and sagittal reformats were then acquired through the thorax. For radiation dose reduction, the following was used: automated exposure control, adjustment of mA and/or kV according to patient size. COMPARISON: None. FINDINGS: Image quality: Excellent. Pulmonary arteries: Pulmonary arteries are prominent in size, and demonstrate no intraluminal filling defects to suggest central pulmonary embolism. Lungs and pleura: Moderate centrilobular emphysema is noted. Hazy opacities in posterior aspect of bilateral lung lamar are seen with associated bronchiectasis. No pleural effusions or pneumothorax. Central and peripheral airways are patent. Mediastinum: Heart size is enlarged, without pericardial effusion. Mildly enlarged left paratracheal lymph node is seen measures 1.2 cm in size series 4, image 48. Bilateral hilar lymphadenopathy are also seen measures up to 1.7 cm in size in left hilar region. Thoracic aorta is normal in caliber and enhancement. Esophagus is normal in caliber, without hiatal hernia. Bones and chest wall: No suspicious bony lesions. Ribs and thoracic spine appear intact throughout. Thyroid gland is enlarged with heterogeneous hypodense areas suggestive of thyroid nodules. No axillary or supraclavicular adenopathy. Abdomen: Visualized upper abdominal solid organs appear normal in the early arterial phase of enhancement. Likely large left renal cysts are seen measures up to 9.7 x 7 cm in size in anterior cortex of left kidney. IMPRESSION: 1. No evidence of pulmonary emboli. Prominent size of pulmonary artery which can be seen associated with pulmonary vascular hypertension. 2. Cardiomegaly, no pericardial effusion. Mildly enlarged mediastinal and bilateral hilar lymph nodes which may indicate reactive inflammatory nodes. 3. Hazy ground-glass opacities are seen scattered in bilateral lung lamar concerning for patchy pneumonitis versus pulmonary edema. Moderate centrilobular emphysema. No pleural effusion or pneumothorax. 4. Incidentally noted of enlarged thyroid gland with hypodense areas suggestive of nodular goiter. Outpatient ultrasound thyroid follow-up is recommended. 5. Suggestion of large left renal cysts. Outpatient ultrasound follow-up is also recommended. Dictated by: Raul Brenner M.D. on 07/28/2023 at 21:52 Approved by: Raul Brenner M.D. on 07/28/2023 at 21:57
--- NOTE | 2023-07-28 21:10 | PC.NURSE ---
FRETTED INSTRUMENT INSPECTOR note: Assisted patient to a urinal for pee sample at 2100. Unsuccessful in obtaining pee sample.
[2023-07-28 21:43] LABS: Troponin I 0.034 ng/mL (0.01-0.034)
[2023-07-28] MEDS: AMOXICILLIN/CLAV 875/125 MG 1 TAB PO (22:25)
== END 2023-07-28 22:30 | disposition home or self-care (01) ==
PROVIDERS: Emergency Medicine; Emergency Provider Emergency Medicine; PCP Family Medicine
DX: E04.9 Nontoxic goiter, unspecified (principal); N28.1 Cyst of kidney, acquired; S09.90XA Unspecified injury of head, initial encounter; W19.XXXA Unspecified fall, initial encounter; Z79.01 Long term (current) use of anticoagulants; Z20.822 Contact with and (suspected) exposure to COVID-19
CPT/HCPCS: 36415; 70450; 71045; 71275; 72125; 72170; 73630; 80053; 80320; 82550; 84484; 85025; 85379; 85610; 85730; 87635; 93005; 94640; 99284; 99285; C9803; Q9967

== ENCOUNTER → 2023-08-02 11:09 | Outpatient (CLI) | payer MEDICARE, OTHER, SELFPAY ==
[2023-08-02 13:58] LABS: Ferritin 1340 ng/mL (18-464)
== END ==
PROVIDERS: PCP Family Medicine; Referring Provider Family Medicine; Visit Provider Family Medicine
DX: E83.119 Hemochromatosis, unspecified (principal); R79.89 Other specified abnormal findings of blood chemistry
CPT/HCPCS: 36415; 82728

== ENCOUNTER → 2023-10-03 08:33 | Outpatient (CLI) | payer MEDICARE, OTHER, SELFPAY ==
[2023-10-03 09:07] LABS: BUN Creatinine Ratio 29.4 (6-22); Blood Urea Nitrogen 30 mg/dL (9-20); Calcium 9.8 mg/dL (8.4-10.2); Carbon Dioxide 28 mmol/L (22-32); Chloride 103 mmol/L (98-107); Estimated Glomerular Filt Rate > 60 mL/min (>60); Glucose 94 mg/dL (80-110); HEMOLYSIS < 15 (0-50); Potassium 4.6 mmol/L (3.4-5.1); Sodium 138 mmol/L (137-145)
--- NOTE | 2023-10-03 10:13 | DI.CT.S_ITS ---
PROCEDURE: CT ABDOMEN RENAL PROTOCOL INDICATIONS: Follow-up left renal lesions and cysts TECHNIQUE: Optional 5 mm thick noncontrast images acquired from the diaphragm to the iliac crests. After the administration of intravenous contrast, 5 mm thick images again acquired from the diaphragm to the iliac crests in the arterial and urographic phases. 5 mm thick coronal and sagittal reformats were then acquired. For radiation dose reduction, the following was used: automated exposure control, adjustment of mA and/or kV according to patient size. COMPARISON: [facility], MR, MR ABDOMEN WO/W CON, 06/14/2023, 16:19. [facility], CT, CT ABDOMEN RENAL PROTOCOL, 06/22/2023, 9:36. FINDINGS: Image quality: Excellent. Lung bases: Similar small left and trace right pleural effusion with bibasilar ground-glass and interlobular thickening. Cardiomegaly. Three-vessel coronary calcifications. Genitourinary: Enhancing mass on the inferior pole of the left kidney measures 2.8 x 2.6 cm, previously 2.6 by 2.3 cm (series 5, image 40). A subtle enhancing mass along the lateral margin of the right kidney measures 0.7 x 0.8 cm, unchanged from prior (series 5, image 37). The previously described complex region on the posterior margin of the right kidney has internal, macroscopic fat, most consistent with a benign angiomyolipoma (series 5, image 35). Additional Bosniak 1 cystic masses are present, and are benign. No retroperitoneal adenopathy. Renal vein is widely patent. Other solid organs: Liver: No solid mass. Gallbladder and biliary tree: No gallstones or biliary dilation. Spleen: Normal size. Pancreas: No ductal dilation. Adrenal glands: No adrenal nodules. Peritoneum and bowel: Unenhanced bowel loops are normal in wall thickness and caliber. No free fluid or air. Nodes and vessels: No retroperitoneal or mesenteric adenopathy by size criteria. Aorta and inferior vena cava are normal in caliber. Bones: No suspicious bony lesions. No vertebral body compression fractures. Miscellaneous: No ventral hernias. IMPRESSION: Mild interval growth of the enhancing mass on the inferior pole of the left kidney, measuring 2.8 x 2.6 cm, previously 2.6 x 2.3 cm. Subtle, enhancing mass on the lateral margin of the right kidney is unchanged in size, measuring 0.8 x 0.7 cm. 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 No evidence of renal vein invasion or retroperitoneal adenopathy. Similar patchy ground-glass and interlobular thickening of the lung bases, with associated pleural effusions. Findings likely represent organizing pneumonia. Dictated by: Flavio Hernadez M.D. on 10/03/2023 at 12:51 Approved by: Flavio Hernadez M.D. on 10/03/2023 at 13:11
== END ==
PROVIDERS: PCP Family Medicine; Referring Provider Urology; Visit Provider Urology
DX: N28.89 Other specified disorders of kidney and ureter (principal)
CPT/HCPCS: 36415; 74170; 80048

== ENCOUNTER → 2023-10-25 14:22 | Outpatient (CLI) | payer MEDICARE, OTHER, SELFPAY ==
--- NOTE | 2023-10-25 14:23 | DI.RAD.S_ITS ---
PROCEDURE: XR CHEST 2V INDICATIONS: Cough TECHNIQUE: 2 views of the chest were acquired. COMPARISON: [facility], CR, XR CHEST 1V, 07/28/2023, 19:30. FINDINGS: Surgical changes and devices: None. Lungs and pleura: Asymmetric left hemidiaphragm elevation, in part due to markedly aerated gastric bubble. Bilateral patchy peripheral airspace opacities, most notably in the left lateral axillary region, left perihilar region, and right lateral lower lung. No significant pleural effusion and no pneumothorax. Mediastinum: Mediastinal contours are normal. Heart size is normal. Bones and chest wall: No acute bony abnormalities. Soft tissues appear unremarkable. IMPRESSION: 1. Bilateral patchy airspace opacities suggestive of multifocal pneumonia, most extensive in the left perihilar and upper lobe regions. 2. No pleural effusion. Dictated by: Muriel Garcia M.D. on 10/25/2023 at 23:34 Approved by: Muriel Garcia M.D. on 10/25/2023 at 23:37
== END ==
PROVIDERS: PCP Family Medicine; Referring Provider Nurse Practitioner Family; Visit Provider Nurse Practitioner Family
DX: R05.9 Cough, unspecified (principal)
CPT/HCPCS: 71046

== ENCOUNTER → 2023-12-03 07:08 | Outpatient (CLI) | payer MEDICARE, OTHER, SELFPAY ==
--- NOTE | 2023-12-03 07:10 | DI.ECHO.S_ITS ---
[facility] [facility]---------+ [facility] +---------+ : : [address] : : : : [id number] : : : : Phone: [phone]+ Echocardiogram Report + + :Name: JONATAN JONES I Study Date: 12/03/2023 Height: 72 in : :[facility] ReadingLocation: Weight: 185 lb : : Gender: Male BSA: 2.1 m2 : :: 1935 Age: 88 yrs BP: 132/82 mmHg: :Reason For Study: edema : : Performed By: Swati Finney : :Referring: SOCORRO TIDWELL : + + Interpretation Summary 1) Normal left ventricular size and thickness with severely reduced systolic function (EF 25-30%). 2) Moderately enlarged right ventricle with moderately reduced function. 3) Both atria are severely dilated. 4) There is mild to moderate tricuspid regurgitation. 5) The averaged right ventricular systolic pressure is estimated to be at least 49 mmHg based on an estimated right atrial pressure of 3 mm Hg. 6) Atrial fibrillation with rapid ventricular response present during the study 7) No prior Echo available for comparison. Recommend cardiology consult. Procedure: A two-dimensional transthoracic echocardiogram with color flow and Doppler was performed. The study quality was technically good. There is no prior echocardiogram noted for this patient. The heart rate ranged between 120-140 bpm during the study. Left Ventricle: Proximal septal thickening is noted. The estimated left ventricular end diastolic volume is 37.5 ml. The left ventricle is normal in size and wall thickness. There is no thrombus. There is no ventricular septal defect visualized. The ejection fraction is estimated to be 25-30%. There is severe global hypokinesis of the left ventricle. Diastolic function could not be accurately assessed due to atrial fibrillation. Right Ventricle: The right ventricle is moderately dilated. Right ventricular systolic function is moderately reduced. Atria: Both atria are severely dilated. There is no Doppler evidence for an interatrial shunt. Mitral Valve: There is mild mitral annular calcification. There is no mitral valve stenosis. There is mild mitral regurgitation. Aortic Valve: The aortic valve is trileaflet. The aortic valve opens well. The aortic valve is mildly calcified. There is no aortic valve stenosis. There is trace aortic regurgitation. Tricuspid Valve: The tricuspid valve leaflets are thin and pliable. The averaged right ventricular systolic pressure is estimated to be at least 49 mmHg based on an estimated right atrial pressure of 3 mm Hg. There is mild to moderate tricuspid regurgitation. Pulmonic Valve: The pulmonic valve is not well seen, but is grossly normal. There is a trace or physiologic amount of pulmonic regurgitation. Great Vessels: The aortic root is borderline dilated. The ascending aorta is normal in size. The aortic arch could not be visualized. The IVC is of normal diameter and collapses greater than 50% with a sniff. This suggests a low right atrial pressure of 3 mm Hg. Pericardium/ Pleura There is no pericardial effusion. There is no pleural effusion. MMode/2D Measurements & Calculations LVIDd: 4.9 cm LVOT diam: 2.4 cm LVIDs: 4.1 cm Ao root diam: 4.0 cm FS: 16.1 % asc Aorta Diam: 3.5 cm IVSd: 1.2 cm LVPWd: 1.0 cm LV escobar. diameter/BSA (cm/m^2): 2.4 LV sys. diameter/BSA (cm/m^2): 2.0 LA A2 area: 36.2 cm2 RA long axis: 6.9 cm LA A4 area: 37.1 cm2 RA area: 29.6 cm2 LA length (vol): 7.9 cm RA vol: 108.2 ml LA vol: 144.8 ml RA : 52.5 ml/m2 LA vol index: 70.3 ml/m2 IVC diam: 2.3 cm RVD1 (basal): 4.9 cm Doppler Measurements & Calculations Ao V2 max: 96.1 cm/sec LVOT Max Bob: 67.0 cm/sec Ao V2 mean: 76.3 cm/sec LV V1 max P.8 mmHg Ao max P.7 mmHg LV V1 VTI: 10.5 cm Ao mean P.4 mmHg DYLON(I,D): 3.4 cm2 Ao V2 VTI: 14.2 cm DYLON(V,D): 3.2 cm2 sev ratio: 0.74 DYLON indexed to BSA (cm^2/m^2): 1.7 MV E max bob: 75.3 cm/sec TR max bob: 337.5 cm/sec Med Peak E' Bob: 8.8 cm/sec TR max P.6 mmHg E/E' med: 8.6 PA V2 max: 62.7 cm/sec Lat Peak E' Bob: 13.7 cm/sec PA V2 mean: 48.9 cm/sec E/E' lat: 5.5 PA mean P.0 mmHg E/e' average: 7.0 PA pr(Accel): 44.7 mmHg SV(LVOT): 48.5 ml Reading Physician:02:41 PM
[2023-12-03 08:29] LABS: BUN Creatinine Ratio 25.2 (6-22); Blood Urea Nitrogen 28 mg/dL (9-20); Calcium 9.6 mg/dL (8.4-10.2); Carbon Dioxide 28 mmol/L (22-32); Chloride 103 mmol/L (98-107); Estimated Glomerular Filt Rate > 60 mL/min (>60); Glucose 88 mg/dL (80-110); HEMOLYSIS < 15 (0-50); Potassium 4.2 mmol/L (3.4-5.1); Sodium 138 mmol/L (137-145)
== END ==
LOC: ECHO 07:09
PROVIDERS: PCP Family Medicine; Referring Provider Family Medicine; Visit Provider Family Medicine
DX: I08.1 Rheumatic disorders of both mitral and tricuspid valves (principal); I48.0 Paroxysmal atrial fibrillation; I10 Essential (primary) hypertension; I87.8 Other specified disorders of veins; R60.0 Localized edema
CPT/HCPCS: 36415; 80048; 93306

== ENCOUNTER 2023-12-03 16:18 | Inpatient (IN) | payer MEDICARE, OTHER, SELFPAY ==
[2023-12-03] VITALS (20 sets, daily range): BP systolic 99–130; BP diastolic 56–93; PULSE 53–155; RESP 17–28; TEMP 36.6–36.9; O2SAT 94–98; BMI 25.7
--- NOTE | 2023-12-03 16:41 | DI.RAD.S_ITS ---
PROCEDURE: XR CHEST 1V INDICATIONS: chest pain TECHNIQUE: One view of the chest was acquired. COMPARISON: [facility], CR, XR CHEST 2V, 10/25/2023, 15:42. FINDINGS: Surgical changes and devices: None. Lungs and pleura: Lungs are clear. No pleural effusions or pneumothorax. Mediastinum: Mediastinal contours appear normal. Heart size is normal. Bones and chest wall: No suspicious bony lesions. Overlying soft tissues appear unremarkable. IMPRESSION: No acute cardiopulmonary abnormality is seen. Dictated by: Alison Issa M.D. on 12/03/2023 at 16:55 Approved by: Alison Issa M.D. on 12/03/2023 at 16:55
[2023-12-03 16:46] LABS: Add Manual Diff / Slide Review NO; Basophils Absolute Auto 0 /uL (0-100); Basophils Percent Auto 0.8 % (0-2); Eosinophils Absolute Auto 100 /uL (0-450); Eosinophils Percent Auto 2.3 % (2-4); Hematocrit 42.9 % (41-53); Hemoglobin 14.5 g/dL (13.5-17.5); Lymphocytes Absolute Auto 1600 /uL (1100-4500); Lymphocytes Percent Auto 29.3 % (25-40); Mean Corpuscular HGB Conc 33.8 % (30-36); Mean Corpuscular Hemoglobin 34.1 PG (26-34); Mean Corpuscular Volume 101.1 fL (80-100); Monocytes Absolute Auto 600 /uL (0-900); Neutrophils Absolute Auto 3200 /uL (1500-7000); Neutrophils Percent Auto 56.6 % (50-75); Platelet Count 171 X10^3/uL (150-400); Red Blood Cell Count 4.24 X10^6/uL (4.5-5.9); Red Cell Distribution Width 12.8 % (11.6-14.8); White Blood Cell Count 5.6 X10^3/uL (4.5-11.0)
[2023-12-03 16:47] LABS: INR 1.2 (0.9-1.3); Prothrombin Time 13.8 SECONDS (9.4-12.5)
[2023-12-03 16:50] LABS: PTT Partial Thromboplastin Tim 30 SECONDS (25.1-36.5)
[2023-12-03 16:57] LABS: Alanine Aminotransferase 28 IU/L (<50); Albumin 4.8 g/dL (3.5-5.0); Albumin Globulin Ratio 1.6 (1.0-2.8); Alkaline Phosphatase 87 U/L (38-126); Aspartate Aminotransferase 34 IU/L (17-59); BUN Creatinine Ratio 26.6 (6-22); Bilirubin Total 0.8 mg/dL (0.2-1.3); Blood Urea Nitrogen 29 mg/dL (9-20); Calcium 9.9 mg/dL (8.4-10.2); Carbon Dioxide 27 mmol/L (22-32); Chloride 102 mmol/L (98-107); Creatine Kinase 54 U/L (55-170); Estimated Glomerular Filt Rate > 60 mL/min (>60); Glucose 94 mg/dL (80-110); HEMOLYSIS < 15 (0-50); Lipase 177 U/L (23-300); Magnesium 2.3 mg/dL (1.6-2.3); Potassium 4.1 mmol/L (3.4-5.1); Sodium 140 mmol/L (137-145); Total Protein 7.8 g/dL (6.3-8.2)
--- NOTE | 2023-12-03 16:58 | ED_ITS ---
HPI - Arrhythmia/Palpitations General Chief Complaint: Arrhythmia/Palpitations Stated Complaint: told to come to ER by Time Seen by Provider: 12/03/23 16:22 Source: patient and EMS Mode of arrival: EMS History of Present Illness HPI narrative: This is an 88-year-old man who arrives by ambulance. The patient tells me that he was told to come to the emergency room by his doctor. Does not know why. EMS was utilized, therefore indicates that he was noted to have atrial fibrillation with rapid ventricular response the patient is not aware that his heart is beating fast. He has not having chest pain shortness of breath or near-syncope. He is anticoagulated for paroxysmal atrial fibrillation, did not take his Eliquis this morning. In fact he says he did not take any of his medications this morning. He was vague about why he had not taken them. I was able to review a cardiology consult from November 22, 2023. He has a history of atrial fibrillation/flutter, has what is described as a structurally normal heart with some mild heart failure. In addition to being on Eliquis, he is on metoprolol XL 25 mg daily for rate control. He did not take that today. There is an element of heart failure and is on furosemide as well as spironolactone. Reviewing the cardiology note, he has flecainide to be utilized in a pill in pocket strategy but he did not take this. Had an echocardiogram done today, I reviewed that report EF is now estimated to be 25-30% so severely depressed LV function. Also has [id number] tricuspid regurgitation. Related Data Home Medications Medication Instructions Recorded Confirmed montelukast 10 mg tablet 10 mg PO BEDTIME 03/03/21 11/05/23 apixaban 5 mg tablet 5 mg PO BID 07/26/21 11/05/23 flecainide 100 mg tablet 100 mg PO Q8H PRN arrythmia 07/26/21 11/05/23 nitroglycerin 0.4 mg sublingual 0.4 mg sublingual Q5-15M PRN 07/26/21 11/05/23 tablet spironolactone 25 mg tablet 25 mg PO DAILY 07/26/21 11/05/23 furosemide 20 mg tablet 0 mg PO 07/17/23 11/05/23 losartan 50 mg tablet 50 mg PO DAILY 07/17/23 11/05/23 Previous Rx's Medication Instructions Recorded atorvastatin 20 mg tablet (Lipitor) 20 mg PO HS #90 tabs 04/15/21 azelastine 137 mcg (0.1 %) nasal 1 spray intranasal BID #30 mL 07/17/21 spray aerosol metoprolol succinate 50 mg 25 mg (1/2 x 50 mg) PO DAILY #90 05/22/23 tablet,extended release 24 hr tabs tamsulosin 0.4 mg capsule (Flomax) 0.4 mg PO DAILY #90 caps 07/16/23 fluticasone 250 mcg-salmeterol 50 1 inh inhalation BID #180 ea 08/13/23 mcg/dose blistr powdr for inhalation (Wixela Inhub) tiotropium bromide 18 mcg capsule 1 cap inhalation DAILY #60 10/10/23 with inhalation device (Spiriva inhalations with HandiHaler) albuterol sulfate 90 mcg/actuation 2 puff inhalation Q4HP PRN 10/25/23 aerosol inhaler (Ventolin HFA) shortness of breath or wheezing #8 grams benzonatate 100 mg capsule 100 mg PO BID PRN cough #20 caps 10/25/23 prednisone 20 mg tablet 40 mg (2 x 20 mg) PO DAILY #6 tabs 10/25/23 amoxicillin 875 mg-potassium 1 tab PO BID #14 tabs 10/26/23 clavulanate 125 mg tablet doxycycline hyclate 100 mg capsule 100 mg PO BID #14 caps 10/26/23 albuterol sulfate 1.25 mg/3 mL 1.25 mg (3 mL) inhalation Q4-6H 10/27/23 solution for nebulization PRN shortness of breath or wheezing #75 mL Allergies Allergy/AdvReac Type Severity Reaction Status Date / Time venom-honey bee Allergy Severe severe Verified 11/05/23 10:35 [BEE VENOM (HONEY BEE)] edema Patient History Medical History Renal cyst Lesion of left [place] kidney URI (upper respiratory infection) COPD exacerbation Basal cell carcinoma (BCC) of right cheek (09/04/16) Colon polyps (06/30/11) Eczema Asthma Hayfever Foot pain (06/2016) Ankle pain (06/2016) Cataract (12/2015) Surgical History History of basal cell carcinoma (BCC) excision (09/04/16) History of phacoemulsification of cataract of left eye with intraocular lens implantation (05/02/16) History of phacoemulsification of cataract of right eye with intraocular lens implantation (04/18/16) History of colonoscopy with polypectomy (06/30/11) Family History Father Cancer Diabetes mellitus Hypertension Mother Cancer High cholesterol Grandfather No problems noted. Grandmother No problems noted. Grandfather No problems noted. Grandmother No problems noted. Social History marital status: Smoking Status: Never smoker alcohol intake: current substance use type: does not use Smoking Status: Never smoker alcohol intake frequency: 0-2 drinks per day Substance Use Type: does not use Exam Initial Vital Signs Initial Vital Signs: Vital Signs Temperature 98.4 F 12/03/23 16:23 Pulse Rate 53 L 12/03/23 16:23 Respiratory Rate 20 12/03/23 16:23 Blood Pressure 99/66 12/03/23 16:23 Pulse Oximetry 98 12/03/23 16:23 Oxygen Delivery Method Room Air 12/03/23 16:23 Const General: No acute distress [facility] Head: normocephalic and atraumatic Neck Neck: supple and No JVD Course Orders Ordered: ED Orders 12/03/23 16:20 Complete Blood Count AUTO DIFF Stat Comprehensive Metabolic Panel Stat Lipase Stat Magnesium Stat PTT Partial Thromboplastin Mario Stat Prothrombin Time INR Stat Troponin & CK Cardiac Panel Stat 12/03/23 16:41 XR chest 1V Stat EKG-12 Lead Stat Discontinued Medications Apixaban (Apixaban 5 Mg Tablet) 5 mg PO NOW ONE Stop: 12/03/23 16:56 Last Admin: 12/03/23 17:05 Dose: 5 mg Documented By: ALEX Digoxin (Digoxin 500 Mcg/2 Ml Ampul) 250 mcg IV NOW ONE Stop: 12/03/23 18:54 Metoprolol Succinate (Metoprolol Er 50 Mg Tablet) 50 mg PO NOW ONE Stop: 12/03/23 17:27 Last Admin: 12/03/23 17:44 Dose: 50 mg Documented By: SB Metoprolol Tartrate (Metoprolol Tartrate 5 Mg/5 Ml Inj) 5 mg IV NOW ONE Stop: 12/03/23 16:56 Last Admin: 12/03/23 17:04 Dose: 5 mg Documented By: TC Potassium Chloride (Potassium Chloride 20 Meq/15 Ml Udc) 20 meq PO NOW ONE Stop: 12/03/23 18:51 Reevaluation(s) Reevaluation #1: 1 hour after receiving oral metoprolol, rate is not controlled. As requested by Dr. Suarez also see if I can transfer to [facility]. Reevaluation #2: Discussed with patient and family, he has really not confident that he is compliant with his Eliquis appropriately we will take the more conservative strategy I have ordered an initial dose of digoxin. CODE STATUS DISCUSSED with the patient and his 2 daughters are present. Would like to be FULL CODE Consultations Consultation #1: Discussed with Dr. Maldonado cardiology at [facility], if patient has been compliant with his anticoagulation and only missed a single dose we could consider cardioversion. If not we will need to pursue a rate control strategy, digoxin is an option. Could also use esmolol Consultation #2: Discussed with Dr. Boston Melchor, accepts admission Vital Signs Vital signs: Vital Signs - 8 hr 12/03/23 16:23 12/03/23 16:44 12/03/23 16:44 Temperature 98.4 F Pulse Rate 53 L 155 H Respiratory Rate 20 28 H Blood Pressure 99/66 113/73 Pulse Oximetry 98 Oxygen Delivery Method Room Air 12/03/23 17:00 12/03/23 17:00 12/03/23 17:30 Temperature Pulse Rate 144 H 130 H Respiratory Rate 17 23 Blood Pressure 119/66 Pulse Oximetry 97 96 Oxygen Delivery Method Room Air 12/03/23 17:30 12/03/23 17:43 12/03/23 17:43 Temperature Pulse Rate 131 H Respiratory Rate 23 Blood Pressure 104/70 109/57 L Pulse Oximetry 96 Oxygen Delivery Method 12/03/23 17:44 12/03/23 18:00 12/03/23 18:00 Temperature Pulse Rate 129 H 133 H Respiratory Rate 20 Blood Pressure 109/57 L 109/71 Pulse Oximetry 96 Oxygen Delivery Method Room Air 12/03/23 18:15 12/03/23 18:15 12/03/23 18:20 Temperature Pulse Rate 133 H 131 H Respiratory Rate 22 Blood Pressure 117/71 117/71 Pulse Oximetry 96 Oxygen Delivery Method Room Air MDM - Arrhythmia/Palpitations Lab Data Lab results narrative: Troponin is normal, CBC with diff is unremarkable, CMP is unremarkable I note his potassium is 4.1 12/03/23 16:20 12/03/23 16:20 Labs: Lab Results 12/03/23 Range/Units 16:20 WBC 5.6 (4.5-11.0) X10^3/uL RBC 4.24 L (4.5-5.9) X10^6/uL Hgb 14.5 (13.5-17.5) g/dL Hct 42.9 (41-53) % MCV 101.1 H (80-100) fL MCH 34.1 H (26-34) PG MCHC 33.8 (30-36) % RDW 12.8 (11.6-14.8) % Plt Count 171 (150-400) X10^3/uL Neut % (Auto) 56.6 (50-75) % Lymph % (Auto) 29.3 (25-40) % [place] % (Auto) 11.0 (3-14) % Eos % (Auto) 2.3 (2-4) % Baso % (Auto) 0.8 (0-2) % Neut # (Auto) 3200 (5822-1142) /uL Lymph # (Auto) 1600 (3901-8595) /uL [place] # (Auto) 600 (0-900) /uL Eos # (Auto) 100 (0-450) /uL Baso # (Auto) 0 (0-100) /uL PT 13.8 H (9.4-12.5) SECONDS INR 1.2 (0.9-1.3) APTT 30 (25.1-36.5) SECONDS Sodium 140 (137-145) mmol/L Potassium 4.1 (3.4-5.1) mmol/L Chloride 102 (98-107) mmol/L Carbon Dioxide 27 (22-32) mmol/L BUN 29 H (9-20) mg/dL Creatinine 1.09 (0.66-1.25) mg/dL Estimated GFR > 60 (>60) mL/min BUN/Creatinine Ratio 26.6 H (6-22) Glucose 94 (80-110) mg/dL Calcium 9.9 (8.4-10.2) mg/dL Magnesium 2.3 (1.6-2.3) mg/dL Total Bilirubin 0.8 (0.2-1.3) mg/dL AST 34 (17-59) IU/L ALT 28 (<50) IU/L Alkaline Phosphatase 87 (38-126) U/L Total Creatine Kinase 54 L (55-170) U/L Troponin I 0.017 (0.01-0.034) ng/mL Total Protein 7.8 (6.3-8.2) g/dL Albumin 4.8 (3.5-5.0) g/dL Globulin 3.0 (1.7-4.1) g/dL Albumin/Globulin Ratio 1.6 (1.0-2.8) Lipase 177 (23-300) U/L Imaging Data Chest x-ray: My Impression: Independent review of chest x-ray no acute findings Radiologist's Impresson: Radiologist report indicates no acute disease ECG Data Interpretation: ECG showing atrial fibrillation with rapid ventricular response at 1:48 a.m.. No acute ischemic changes Treatment and disposition Code Status and discussions:: Discussed with patient in the presence of his daughter, full code MDM Narrative Medical decision making narrative: 8-year-old man with a history of paroxysmal atrial fibrillation. Had an echocardiogram done today with a surprise the result of atrial fibrillation with rapid ventricular response and 25-30% ejection fraction. Patient was instructed to come to the emergency department because of this. While he was anticoagulated, his compliance with anticoagulation is uncertain and he was not felt appropriate for cardioversion. Rate control with metoprolol was unsuccessful recognizing the need for cautious rate control with his low ejection fraction. He will be admitted and started on digoxin in the hopes of obtaining rate control. Critical Care Time Critical Care Time Total Critical Care Time: 45 Attestation: Critical care time included IV medications for cardiac rate control repeated reassessments detailed discussions of therapeutic options, discussions with consultants and admitting physician, discussion of code status Discharge Plan Departure Patient Disposition: Admitted As Inpatient Clinical Impression: Atrial fibrillation with rapid ventricular response
[2023-12-03] MEDS: METOPROLOL TARTRATE 5 MG/5 ML INJ IV (17:04)
[2023-12-03] MEDS: APIXABAN 5 MG TABLET PO ×2 (17:05→22:02)
[2023-12-03 17:07] LABS: Troponin I 0.017 ng/mL (0.01-0.034)
[2023-12-03] MEDS: METOPROLOL ER 50 MG TABLET PO (17:44)
[2023-12-03] MEDS: POTASSIUM CHLORIDE 20 MEQ/15 ML UDC PO (19:16)
[2023-12-03] MEDS: DIGOXIN 500 MCG/2 ML AMPUL 250 MCG IV (19:21)
[2023-12-03] MEDS: MONTELUKAST 10 MG TABLET PO (22:02)
[2023-12-04] VITALS (14 sets, daily range): BP systolic 97–116; BP diastolic 55–75; PULSE 104–137; RESP 16–20; TEMP 36.3–37; O2SAT 91–98
[2023-12-04] MEDS: DIGOXIN 500 MCG/2 ML AMPUL 250 MCG IV ×3 (02:16→13:59)
[2023-12-04] MEDS: ALBUTEROL 2.5 MG/3 ML NEB (ADULT) INH (03:10)
[2023-12-04 05:27] LABS: Add Manual Diff / Slide Review NO; Basophils Absolute Auto 0 /uL (0-100); Basophils Percent Auto 1.3 % (0-2); Eosinophils Absolute Auto 200 /uL (0-450); Eosinophils Percent Auto 4.4 % (2-4); Hematocrit 36.9 % (41-53); Hemoglobin 12.5 g/dL (13.5-17.5); Lymphocytes Absolute Auto 900 /uL (1100-4500); Lymphocytes Percent Auto 24.9 % (25-40); Mean Corpuscular HGB Conc 33.9 % (30-36); Mean Corpuscular Hemoglobin 34.2 PG (26-34); Mean Corpuscular Volume 100.8 fL (80-100); Monocytes Absolute Auto 400 /uL (0-900); Monocytes Percent Auto 11.2 % (3-14); Neutrophils Absolute Auto 2100 /uL (1500-7000); Neutrophils Percent Auto 58.2 % (50-75); Platelet Count 139 X10^3/uL (150-400); Red Blood Cell Count 3.66 X10^6/uL (4.5-5.9); Red Cell Distribution Width 12.7 % (11.6-14.8); White Blood Cell Count 3.6 X10^3/uL (4.5-11.0)
[2023-12-04 05:36] LABS: Magnesium 2.1 mg/dL (1.6-2.3)
--- NOTE | 2023-12-04 06:32 | PC.NURSE ---
pt has rested fairly well since admit last night; he did have an episode of repeated throat clearing/soft coughing; requested prn breathing treatment for his asthma symptoms and it was given; pt reported relief; pt remains in A-fib; he has been up and ambulated to the bathroom and he is steady on his feet
[2023-12-04 07:23] LABS: MRSA (Nasal) PCR Not Detected (Not Detect)
--- NOTE | 2023-12-04 08:17 | P.HP_ITS ---
History of Present Illness History of Present Illness Date Patient Seen: 12/04/23 Time Patient Seen: 08:17 Chief complaint: a fib with rvr sent by cardiology Narrative: Adilson Mariano is an 88-year-old male with atrial fibrillation with chronic anticoagulation systolic congestive heart failure renal cell carcinoma hemochromatosis chronic obstructive pulmonary disease and seasonal allergies with mild cognitive decline was sent to the emergency department after he had an echocardiogram done which showed he had a poor ejection fraction with a rapid ventricular response atrial fibrillation. 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 Suarez who called him and told him he needed to present to the hospital. Patient called 911 and was brought into the emergency department. Was evaluated in the emergency department with laboratory testing of blood work chest x-ray. His laboratory testing was reviewed which showed mild anemia mildly low normal platelets normal kidney and electrolyte function his heart rate was 110s to 120s. On discussed with the patient states he is feeling well was not aware that he was having a fast heart rate. He has chronic breathlessness. And has known COPD and uses inhalers. Not recently had chest pain dizziness lightheadedness. Fairly sedentary because of his chronic breathlessness sensation. Lives on [facility]. He says he has had no problems with his balance no recent falls. Patient has a difficult time with the year although he does not know he is in [place] at the hospital. He does recognize me. Says he has been having normal urination. He has no sensation of constipation. He has had some mild lower extremity swelling in his feet and ankles. In the emergency room discussion with Cardiology ensued patient was recommended by Cardiology to be loaded with digoxin and admitted to the hospital for further rate control. This morning I reviewed his laboratory tests his chest x-ray is recent echocardiogram emergency room care. On discussion with patient he is alert knows he is in [place] has a difficult time with the date. Patient states he is short of breath but otherwise doing well. He denies any fevers or chills. Chest pain or palpitations. Says he has not very hungry today. [facility] Medical History Renal cyst Lesion of left [place] kidney URI (upper respiratory infection) COPD exacerbation Basal cell carcinoma (BCC) of right cheek (09/04/16) Colon polyps (06/30/11) Eczema Asthma Hayfever Foot pain (06/2016) Ankle pain (06/2016) Cataract (12/2015) Surgical History History of basal cell carcinoma (BCC) excision (09/04/16) History of phacoemulsification of cataract of left eye with intraocular lens implantation (05/02/16) History of phacoemulsification of cataract of right eye with intraocular lens implantation (04/18/16) History of colonoscopy with polypectomy (06/30/11) Family History Father Cancer Diabetes mellitus Hypertension Mother Cancer High cholesterol Grandfather No problems noted. Grandmother No problems noted. Grandfather No problems noted. Grandmother No problems noted. Social History marital status: household members: none Smoking Status: Never smoker alcohol intake: current substance use type: does not use Meds Home Medications and Allergies Home Medications Medication Instructions Recorded Confirmed Type montelukast 10 mg tablet 10 mg PO BEDTIME 03/03/21 12/03/23 History atorvastatin 20 mg tablet (Lipitor) 20 mg PO HS #90 tabs 04/15/21 12/03/23 Rx apixaban 5 mg tablet 5 mg PO BID 07/26/21 12/03/23 History nitroglycerin 0.4 mg sublingual 0.4 mg sublingual Q5-15M PRN Chest 07/26/21 12/03/23 History tablet Pain spironolactone 25 mg tablet 25 mg PO DAILY 07/26/21 12/03/23 History tamsulosin 0.4 mg capsule (Flomax) 0.4 mg PO DAILY #90 caps 07/16/23 12/03/23 Rx furosemide 20 mg tablet 40 mg PO DAILY 07/17/23 12/03/23 History losartan 50 mg tablet 50 mg PO BEDTIME 07/17/23 12/03/23 History fluticasone 250 mcg-salmeterol 50 1 inh inhalation BID #180 ea 08/13/23 12/03/23 Rx mcg/dose blistr powdr for inhalation (Wixela Inhub) tiotropium bromide 18 mcg capsule 1 cap inhalation DAILY #60 10/10/23 12/03/23 Rx with inhalation device (Spiriva inhalations with HandiHaler) albuterol sulfate 90 mcg/actuation 2 puff inhalation Q4HP PRN 10/25/23 12/03/23 Rx aerosol inhaler (Ventolin HFA) shortness of breath or wheezing #8 grams benzonatate 100 mg capsule 100 mg PO BID PRN cough #20 caps 10/25/23 12/03/23 Rx albuterol sulfate 1.25 mg/3 mL 1.25 mg (3 mL) inhalation Q4-6H 10/27/23 12/03/23 Rx solution for nebulization PRN shortness of breath or wheezing #75 mL metoprolol succinate 50 mg 50 mg PO DAILY 12/03/23 12/03/23 History tablet,extended release 24 hr Allergies Allergy/AdvReac Type Severity Reaction Status Date / Time venom-honey bee Allergy Severe severe Verified 11/05/23 10:35 [BEE VENOM (HONEY BEE)] edema Exam Vital Signs (past 8 hours): - 12/04/23 03:11 12/04/23 04:59 Temperature 97.4 F L Pulse Rate 104 H Respiratory Rate 16 Blood Pressure 112/68 Pulse Oximetry 98 Oxygen Delivery Method Room Air Oxygen Flow Rate 0 Oxygen Delivery Method Room Air Oxygen Flow Rate 0 Narrative Exam Narrative: Gen.: Alert oriented to person and place not time HEENT: Pupils equal round and reactive or mucosa is moist neck is supple Cardio: S1-S2 irregular rate and rhythm slightly tachycardic Respiratory: Clear lungs are sounds throughout no increased work of breathing I do not appreciate any wheezes. Abdomen: Soft nontender no rebound or guarding no liver spleen enlargement no appreciable hernias Extremities: Some mild lower extremity edema warm dry perfused Neurologic: No focal neurological deficits Objective Labs 12/04/23 05:00 12/03/23 16:20 Labs: Laboratory Results - last 24 hr 12/03/23 12/03/23 12/04/23 16:20 20:25 05:00 WBC 5.6 3.6 L RBC 4.24 L 3.66 L Hgb 14.5 12.5 L Hct 42.9 36.9 L MCV 101.1 H 100.8 H MCH 34.1 H 34.2 H MCHC 33.8 33.9 RDW 12.8 12.7 Plt Count 171 139 L Neut % (Auto) 56.6 58.2 Lymph % (Auto) 29.3 24.9 L [place] % (Auto) 11.0 11.2 Eos % (Auto) 2.3 4.4 H Baso % (Auto) 0.8 1.3 Neut # (Auto) 3200 2100 Lymph # (Auto) 1600 900 L [place] # (Auto) 600 400 Eos # (Auto) 100 200 Baso # (Auto) 0 0 PT 13.8 H INR 1.2 APTT 30 Sodium 140 Potassium 4.1 Chloride 102 Carbon Dioxide 27 BUN 29 H Creatinine 1.09 Estimated GFR > 60 BUN/Creatinine Ratio 26.6 H Glucose 94 Calcium 9.9 Magnesium 2.3 2.1 Total Bilirubin 0.8 AST 34 ALT 28 Alkaline Phosphatase 87 Total Creatine Kinase 54 L Troponin I 0.017 Total Protein 7.8 Albumin 4.8 Globulin 3.0 Albumin/Globulin Ratio 1.6 Lipase 177 Nasal Screen MRSA (PCR) Not detected Assessment & Plan Assessment and plan (1) Atrial fibrillation with rapid ventricular response: Status: Acute Assessment & Plan narrative: Atrial fibrillation with rapid ventricular response patient is admitted the hospital with atrial fibrillation and rapid ventricular response. Heart rates in 1 10s to 130s. As per Cardiology was admitted the hospital. He had a loading dose of digoxin provided in the emergency department they recommended additional loading doses to see if this would help with rate control. He was given 250 mcg of loading dose in the emergency department will continue with 3 more doses. And then he will be switched over to oral at 0.125 mcg tomorrow. His echocardiogram was recently done which showed rapid ventricular response atrial fibrillation with reduced ejection fraction without significant valvular heart disease. Patient admits to not taking his medication regularly. As well as his anticoagulation. He will be started back on his stroke prevention anticoagulation with Eliquis twice daily. Will go ahead and adjust his metoprolol that he is supposed to be taking 25 mg once daily to 50 mg twice a day to see if this will help with the improved rate control as well. Acute systolic congestive heart failure. Patient with reduced ejection fraction on his recent echocardiogram. Some mild signs of fluid overload with lower extremity edema. Although he is complaining of symptomatic shortness of breath I do not appreciate any crackles on lung exam. I think he has a little bit volume overloaded. So will provide IV Lasix today with oral potassium to see if we can not improve fluid status and get him a little bit dried out this may help with his tachycardic and atrial fibrillation as well. COPD. Patient with COPD. It looks like he was placed on prednisone here recently for partial COPD exacerbation. I do not see any wheezes on lung exam per se. His oxygen level is good. He was placed on prednisone and given inhalers here. Will go ahead and gradually decrease his prednisone monitor closely for acute exacerbation and shortness of breath symptoms. He has currently not on antibiotics. Hemochromatosis. Patient with hemochromatosis with a fairly significantly elevated ferritin. Patient has phlebotomy of this. His most recent ferritin level was quite high. He had a therapeutic phlebotomy here a few weeks ago. Acute Anemia. Patient is having therapeutic phlebotomy due to his hemochromatosis and this is why he is anemic. Renal mass. Patient with left renal mass concerning for renal cell carcinoma. This is being monitored closely by Urology currently has had no significant changes and stable size. BPH. Patient will be continued on his Flomax will monitor his urine output. Constipation. Placement will be placed on Colace with milk of magnesia as needed. Hyperlipidemia. Patient will be continued on his current statin medication. DVT prophylaxis patient is already on anticoagulation. Disposition and plan. Finish 3 additional doses of IV digoxin today switch to oral tomorrow. Increase metoprolol to 50 mg twice daily. Diurese with a little furosemide today to see if we can improve his heart rate. He is in consistent atrial fibrillation for a number of years now. Reviewed and discussed code status with patient. Quality VTE Deep Vein Thrombosis/Pulmonary Embolism Present on Admission: No
[2023-12-04 08:26] LABS: Alanine Aminotransferase 23 IU/L (<50); Albumin 3.5 g/dL (3.5-5.0); Albumin Globulin Ratio 1.4 (1.0-2.8); Alkaline Phosphatase 74 U/L (38-126); Aspartate Aminotransferase 27 IU/L (17-59); BUN Creatinine Ratio 27.1 (6-22); Bilirubin Total 0.7 mg/dL (0.2-1.3); Blood Urea Nitrogen 26 mg/dL (9-20); Calcium 9.1 mg/dL (8.4-10.2); Carbon Dioxide 23 mmol/L (22-32); Chloride 108 mmol/L (98-107); Estimated Glomerular Filt Rate > 60 mL/min (>60); Globulin 2.5 g/dL (1.7-4.1); Glucose 84 mg/dL (80-110); HEMOLYSIS < 15 (0-50); Potassium 4.2 mmol/L (3.4-5.1); Sodium 137 mmol/L (137-145)
[2023-12-04] MEDS: ALBUTEROL/IPRATROPIUM 3 ML AMPUL INH ×4 (08:43→19:19)
[2023-12-04] MEDS: BUDESONIDE 0.5 MG/2 ML NEB INH ×2 (08:43→19:20)
[2023-12-04] MEDS: predniSONE 20 MG TABLET PO (09:09)
[2023-12-04] MEDS: FUROSEMIDE 40 MG/4 ML VIAL IV (09:09)
[2023-12-04] MEDS: DOCUSATE 100 MG CAPSULE PO ×2 (09:13→20:30)
[2023-12-04] MEDS: TAMSULOSIN 0.4 MG CAPSULE PO (09:13)
[2023-12-04] MEDS: APIXABAN 5 MG TABLET PO ×2 (09:13→20:30)
[2023-12-04] MEDS: METOPROLOL ER 50 MG TABLET PO ×2 (09:13→17:51)
[2023-12-04] MEDS: POTASSIUM CHLORIDE 20 MEQ TAB PO (09:19)
--- NOTE | 2023-12-04 13:35 | CM.DANOTE ---
Initial DCP Assessment Note Pt is an 88 yo male, resident of [facility], arrives after recommendation from Cardiology to go to the ER r/t afib w/ rvr PCP: Zurdo Mcdonnell Payer: [employer] Met w/patient and multiple family members in room, introduced self and role. Patient is not forthcoming with information during this LOCOMOTIVE PIPE FITTER's line of questioning. Family members help fill in some info. Patient reports he lives w/spouse and both he and spouse remain indp w/ADLs. Spouse uses a walker. Daughter Aleah in room, lives in [place]. Aleah visits approx 3 times per month. Patient has no hx of HH or SNF. Patient intends to return home upon discharge, family to transport, denies needs from this LOCOMOTIVE PIPE FITTER. Provided Senior Resource guide and brochure for [facility] to patient and family for future reference. No barriers identified at this time to patient's safe discharge home w/family to assist; close outpatient f/u recommended. CM team will plan to follow closely in case any DC needs or concerns arise. ED [facility] Discharge Planning/Care Management CM Discharge Assessment Start: 12/04/23 13:30 Freq: Status: Active Protocol: Document 12/04/23 13:30 CONG (Rec: 12/04/23 13:34 CONG [id number]) Discharge Planning Assessment Assigned [facility] DPOA/Assigned Designee Name lissa [facility] Contact Information [phone] Advance Directives? Yes Advance Directives on File No History Provided By Patient,Medical Record Prior Living Arrangements House Household Members spouse,none Type of transporation used prior to Drives own vehicle admit Independent with ADL's Yes Is patient alert and oriented? Yes Barriers to Discharge No Discharge Plan Home Transportation Arrangement Family Referrals Initiated None needed Whiteboard Updated in Patient Room with Yes name and ext. # of Manager [facility]
[2023-12-04] MEDS: BENZONATATE 100 MG CAPSULE PO (13:57)
[2023-12-04] MEDS: BENZOCAINE/MENTHOL 1 LOZ PKT 1 EACH PO ×2 (13:57→17:54)
--- NOTE | 2023-12-04 18:12 | PC.NURSE ---
Called Dr. Mcdonnell around 1730 and reported to him that pt's HR had been sustaining in the 120s-140s most of the day. Pt asymptomatic - no palpitations, SOB, CP, near syncope, dizziness, significant weakness. BP stable with MAP >65. Provider told RN to give the night dose of metoprolol early. RN relayed information to pt and reminded pt to report to provider if pt experienced any cardiac/respiratory symptoms.
[2023-12-04] MEDS: ATORVASTATIN 20 MG TABLET PO (20:30)
[2023-12-04] MEDS: MONTELUKAST 10 MG TABLET PO (20:30)
[2023-12-05] VITALS (9 sets, daily range): BP systolic 99–127; BP diastolic 58–80; PULSE 88–112; RESP 16–18; TEMP 36.4–36.9; O2SAT 93–96
[2023-12-05 05:13] LABS: Add Manual Diff / Slide Review NO; Basophils Absolute Auto 0 /uL (0-100); Basophils Percent Auto 0.4 % (0-2); Eosinophils Absolute Auto 0 /uL (0-450); Eosinophils Percent Auto 0.4 % (2-4); Hematocrit 34.3 % (41-53); Hemoglobin 11.7 g/dL (13.5-17.5); Lymphocytes Absolute Auto 600 /uL (1100-4500); Lymphocytes Percent Auto 13.1 % (25-40); Mean Corpuscular HGB Conc 34.2 % (30-36); Mean Corpuscular Hemoglobin 34.3 PG (26-34); Mean Corpuscular Volume 100.2 fL (80-100); Monocytes Absolute Auto 500 /uL (0-900); Monocytes Percent Auto 10.8 % (3-14); Neutrophils Absolute Auto 3500 /uL (1500-7000); Neutrophils Percent Auto 75.3 % (50-75); Platelet Count 129 X10^3/uL (150-400); Red Blood Cell Count 3.42 X10^6/uL (4.5-5.9); Red Cell Distribution Width 12.8 % (11.6-14.8); White Blood Cell Count 4.6 X10^3/uL (4.5-11.0)
[2023-12-05 05:35] LABS: Alanine Aminotransferase 21 IU/L (<50); Albumin 3.3 g/dL (3.5-5.0); Albumin Globulin Ratio 1.4 (1.0-2.8); Alkaline Phosphatase 62 U/L (38-126); Aspartate Aminotransferase 23 IU/L (17-59); BUN Creatinine Ratio 25.7 (6-22); Bilirubin Total 0.5 mg/dL (0.2-1.3); Blood Urea Nitrogen 26 mg/dL (9-20); Carbon Dioxide 25 mmol/L (22-32); Chloride 105 mmol/L (98-107); Estimated Glomerular Filt Rate > 60 mL/min (>60); Globulin 2.3 g/dL (1.7-4.1); Glucose 104 mg/dL (80-110); HEMOLYSIS < 15 (0-50); Potassium 4.1 mmol/L (3.4-5.1); Sodium 137 mmol/L (137-145); Total Protein 5.6 g/dL (6.3-8.2)
[2023-12-05] MEDS: ALBUTEROL/IPRATROPIUM 3 ML AMPUL INH ×5 (08:25→19:06)
[2023-12-05] MEDS: BUDESONIDE 0.5 MG/2 ML NEB INH ×2 (08:25→19:06)
[2023-12-05] MEDS: TAMSULOSIN 0.4 MG CAPSULE PO (08:49)
[2023-12-05] MEDS: POTASSIUM CHLORIDE 20 MEQ TAB PO (08:49)
[2023-12-05] MEDS: APIXABAN 5 MG TABLET PO ×2 (08:49→21:05)
[2023-12-05] MEDS: DOCUSATE 100 MG CAPSULE PO ×2 (08:49→21:06)
[2023-12-05] MEDS: FUROSEMIDE 40 MG/4 ML VIAL IV (08:49)
[2023-12-05] MEDS: DIGOXIN 0.125 MG TABLET PO (08:49)
[2023-12-05] MEDS: BENZONATATE 100 MG CAPSULE PO (08:49)
[2023-12-05] MEDS: predniSONE 20 MG TABLET 10 MG PO (08:50)
[2023-12-05] MEDS: METOPROLOL ER 50 MG TABLET 100 MG PO ×2 (08:50→21:04)
--- NOTE | 2023-12-05 09:19 | PM.PN.1 ---
Subjective Subjective Date Patient Seen: 12/05/23 Time Patient Seen: 09:19 Interval history: Patient seen and evaluated this morning. Did well overnight. Some mild confusion this morning. Due to advanced age being in the ICU and just his medical sickness. Still quite tachycardic. Received IV digoxin loading yesterday. IV Lasix for heart failure. Heart rate is starting to come down. Had some heart rates into the mid 70s at night while he was sleeping. Blood pressures been a little bit low. Patient was able to ambulate with his grandson has a good appetite. Urination and bowel movements are good. Patient has no complaints of pain yesterday complaints of shortness of breath but this is improved. Exam Vital Signs (past 8 hours): - 12/05/23 03:43 12/05/23 08:00 12/05/23 08:49 Temperature 97.6 F Pulse Rate 100 H 88 104 H Respiratory Rate 16 18 Blood Pressure 100/65 99/58 L 127/73 Pulse Oximetry 95 96 Oxygen Flow Rate 0 0 12/05/23 08:50 Temperature Pulse Rate 103 H Respiratory Rate Blood Pressure 127/73 Pulse Oximetry Oxygen Flow Rate Oxygen Delivery Method Room Air Oxygen Flow Rate 0 Narrative Exam Narrative: Gen.: Alert oriented to person knows he is in [place] unsure of time. HEENT: Pupils equal round and reactive or mucosa is moist neck is supple Cardio: S1-S2 irregular rate and rhythm Respiratory: Lungs normal respiratory effort. I do not appreciate wheezes or crackles he has intermittent coughing Abdomen: Soft nontender no distention appreciated Extremities: 1+ lower extremity edema. Improved over yesterday Objective Labs 12/05/23 04:25 12/05/23 04:25 Labs: Laboratory Results - last 24 hr 12/05/23 04:25 WBC 4.6 RBC 3.42 L Hgb 11.7 L Hct 34.3 L MCV 100.2 H MCH 34.3 H MCHC 34.2 RDW 12.8 Plt Count 129 L Neut % (Auto) 75.3 H Lymph % (Auto) 13.1 L [place] % (Auto) 10.8 Eos % (Auto) 0.4 L Baso % (Auto) 0.4 Neut # (Auto) 3500 Lymph # (Auto) 600 L [place] # (Auto) 500 Eos # (Auto) 0 Baso # (Auto) 0 Sodium 137 Potassium 4.1 Chloride 105 Carbon Dioxide 25 BUN 26 H Creatinine 1.01 Estimated GFR > 60 BUN/Creatinine Ratio 25.7 H Glucose 104 Calcium 9.0 Total Bilirubin 0.5 AST 23 ALT 21 Alkaline Phosphatase 62 Total Protein 5.6 L Albumin 3.3 L Globulin 2.3 Albumin/Globulin Ratio 1.4 [facility] Medical History Renal cyst Lesion of left [place] kidney URI (upper respiratory infection) COPD exacerbation Basal cell carcinoma (BCC) of right cheek (09/04/16) Colon polyps (06/30/11) Eczema Asthma Hayfever Foot pain (06/2016) Ankle pain (06/2016) Cataract (12/2015) Surgical History History of basal cell carcinoma (BCC) excision (09/04/16) History of phacoemulsification of cataract of left eye with intraocular lens implantation (05/02/16) History of phacoemulsification of cataract of right eye with intraocular lens implantation (04/18/16) History of colonoscopy with polypectomy (06/30/11) Family History Father Cancer Diabetes mellitus Hypertension Mother Cancer High cholesterol Grandfather No problems noted. Grandmother No problems noted. Grandfather No problems noted. Grandmother No problems noted. Social History marital status: household members: spouse and none Smoking Status: Never smoker alcohol intake: current substance use type: does not use Assessment & Plan Assessment and plan (1) Atrial fibrillation with rapid ventricular response: Status: Acute Plan Atrial fibrillation with rapid ventricular response patient loaded with digoxin yesterday. On oral digoxin today. Increase metoprolol from 25 mg b.i.d. to 100 mg b.i.d. today. Patient is tolerating medication adjustment with his blood pressure. Heart rate is gradually slowing down. Reviewed case with Dr. Carrillo Cardiology. If heart rate does not improve would arrange for outpatient DMITRY and cardioversion. Plan today increase metoprolol from 50 mg b.i.d. 200 mg b.i.d.. Ambulate. Out of bed to chair. Acute systolic congestive heart failure. Patient with acute systolic congestive heart failure with signs of fluid overload. With lower extremity edema. AFib with RVR. Diuresed good results yesterday with Lasix. One more dose of IV Lasix today electrolytes and kidney function are normal. Patient has a significantly reduced ejection fraction on echocardiogram just done a couple of days ago. He is normally on losartan and beta-amena as well as spironolactone. His losartan and spironolactone on hold but at some point will restart this once his heart rates better controlled COPD. Chronic stable COPD. Decrease dose of prednisone today continuing nebulizers per protocol David Mckeon for cough. Do not see any signs or symptoms of acute exacerbation at this point. Hemochromatosis. Patient with hemochromatosis therapeutic phlebotomy he is mildly anemic due to this Acute Anemia. Patient is having therapeutic phlebotomy due to his hemochromatosis and this is why he is anemic. Renal mass. Patient with left renal mass concerning for renal cell carcinoma. Unchanged being monitored as an outpatient. BPH. Good urine output no signs of obstruction Constipation. On a bowel regimen Hyperlipidemia. Patient will be continued on his current statin medication. DVT prophylaxis patient is already on anticoagulation. Disposition and plan. Increase metoprolol to 100 mg b.i.d.. Continue with Lasix. Out of bed with physical therapy hopefully heart rate will continue improved. Anticipate discharge tomorrow. Quality VTE Deep Vein Thrombosis/Pulmonary Embolism Present on Admission: No
[2023-12-05] MEDS: MONTELUKAST 10 MG TABLET PO (21:05)
[2023-12-05] MEDS: ATORVASTATIN 20 MG TABLET PO (21:06)
[2023-12-06] VITALS (9 sets, daily range): BP systolic 109–120; BP diastolic 66–79; PULSE 84–109; RESP 18–20; TEMP 36.8–37.2; O2SAT 94–100
[2023-12-06 04:57] LABS: Add Manual Diff / Slide Review NO; Basophils Absolute Auto 0 /uL (0-100); Eosinophils Absolute Auto 100 /uL (0-450); Eosinophils Percent Auto 1.9 % (2-4); Hematocrit 37.3 % (41-53); Hemoglobin 12.8 g/dL (13.5-17.5); Lymphocytes Absolute Auto 800 /uL (1100-4500); Lymphocytes Percent Auto 18.7 % (25-40); Mean Corpuscular HGB Conc 34.1 % (30-36); Mean Corpuscular Hemoglobin 34.1 PG (26-34); Mean Corpuscular Volume 99.9 fL (80-100); Monocytes Absolute Auto 500 /uL (0-900); Neutrophils Absolute Auto 3000 /uL (1500-7000); Neutrophils Percent Auto 67.4 % (50-75); Platelet Count 147 X10^3/uL (150-400); Red Blood Cell Count 3.74 X10^6/uL (4.5-5.9); Red Cell Distribution Width 12.8 % (11.6-14.8); White Blood Cell Count 4.5 X10^3/uL (4.5-11.0)
[2023-12-06 05:08] LABS: Alanine Aminotransferase 23 IU/L (<50); Albumin 3.8 g/dL (3.5-5.0); Albumin Globulin Ratio 1.5 (1.0-2.8); Alkaline Phosphatase 64 U/L (38-126); Aspartate Aminotransferase 25 IU/L (17-59); BUN Creatinine Ratio 26.6 (6-22); Bilirubin Total 0.6 mg/dL (0.2-1.3); Blood Urea Nitrogen 25 mg/dL (9-20); Calcium 9.5 mg/dL (8.4-10.2); Carbon Dioxide 28 mmol/L (22-32); Chloride 105 mmol/L (98-107); Estimated Glomerular Filt Rate > 60 mL/min (>60); Globulin 2.5 g/dL (1.7-4.1); Glucose 75 mg/dL (80-110); HEMOLYSIS < 15 (0-50); Potassium 4.4 mmol/L (3.4-5.1); Sodium 139 mmol/L (137-145); Total Protein 6.3 g/dL (6.3-8.2)
[2023-12-06] MEDS: BUDESONIDE 0.5 MG/2 ML NEB INH (07:51)
[2023-12-06] MEDS: ALBUTEROL/IPRATROPIUM 3 ML AMPUL INH ×2 (07:51→10:52)
[2023-12-06] MEDS: METOPROLOL ER 50 MG TABLET 100 MG PO (08:29)
[2023-12-06] MEDS: APIXABAN 5 MG TABLET PO (08:29)
[2023-12-06] MEDS: DOCUSATE 100 MG CAPSULE PO (08:29)
[2023-12-06] MEDS: TAMSULOSIN 0.4 MG CAPSULE PO (08:30)
[2023-12-06] MEDS: predniSONE 20 MG TABLET 10 MG PO (08:30)
[2023-12-06] MEDS: DIGOXIN 0.125 MG TABLET PO (08:31)
--- NOTE | 2023-12-06 09:03 | P.DS_ITS ---
History of Present Illness History of Present Illness Chief complaint: a fib with rvr sent by cardiology Narrative: Adilson Mariano is an 88-year-old male with atrial fibrillation with chronic anticoagulation systolic congestive heart failure renal cell carcinoma hemochromatosis chronic obstructive pulmonary disease and seasonal allergies with mild cognitive decline was sent to the emergency department after he had an echocardiogram done which showed he had a poor ejection fraction with a rapid ventricular response atrial fibrillation. This was read by his manufacturing maintenance technician Dr. Suarez who called him and told him he needed to present to the hospital. Patient called 911 and was brought into the emergency department. Was evaluated in the emergency department with laboratory testing of blood work chest x-ray. His laboratory testing was reviewed which showed mild anemia mildly low normal platelets normal kidney and electrolyte function his heart rate was 110s to 120s. On discussed with the patient states he is feeling well was not aware that he was having a fast heart rate. He has chronic breathlessness. And has known COPD and uses inhalers. Not recently had chest pain dizziness lightheadedness. Fairly sedentary because of his chronic breathlessness sensation. Lives on [facility]. He says he has had no problems with his balance no recent falls. Patient has a difficult time with the year although he does not know he is in [place] at the hospital. He does recognize me. Says he has been having normal urination. He has no sensation of constipation. He has had some mild lower extremity swelling in his feet and ankles. In the emergency room discussion with Cardiology ensued patient was recommended by Cardiology to be loaded with digoxin and admitted to the hospital for further rate control. This morning I reviewed his laboratory tests his chest x-ray is recent echocardiogram emergency room care. On discussion with patient he is alert knows he is in [place] has a difficult time with the date. Patient states he is short of breath but otherwise doing well. He denies any fevers or chills. Chest pain or palpitations. Says he has not very hungry today. Discharge Providers Provider Date of admission: 12/03/23 19:47 Discharge Date: 12/06/23 Primary care physician: Zurdo Mcdonnell MD Discharge provider: Zurdo Mcdonnell MD Summary Hospital Course Discharge Diagnosis: Atrial fibrillation with rapid ventricular response patient loaded with digoxin yesterday. Patient had increase of his metoprolol from 20/5 extended release twice a day to 100 twice a day. There is concerns about patient taking his medication appropriately. He was not cardioverted he was placed back on his Eliquis 5 mg a day. During his hospital stay his heart rate improved from 130s to 140s to 80s and 90s at x1 0s. Acute systolic congestive heart failure. Patient with acute systolic congestive heart failure with signs of fluid overload. During his hospital stay patient was given IV Lasix. Had good diuresis had improvement of his signs symptoms of heart failure improvement of his shortness of breath which she was complaining about as well as reduction of his edema. He will be discharged home with spironolactone and Lasix as needed. COPD. Chronic stable COPD. Patient will be discharged home with his home medication of Spiriva Wixela and albuterol as needed Hemochromatosis. Patient with hemochromatosis will can need continued to be followed with therapeutic phlebotomy and monitor his ferritin levels Acute Anemia. Patient is having therapeutic phlebotomy due to his hemochromatosis and this is why he is anemic. This was monitored during his hospital stay Renal mass. Patient with left renal mass concerning for renal cell carcinoma. Unchanged being monitored as an outpatient. BPH. Good urine output no signs of obstruction no signs of urinary obstruction during hospital his Flomax was continued Constipation. On a bowel regimen patient had normal bowel movements in the hospital Hyperlipidemia. Patient will be continued on his current statin medication. Disposition and plan. Discharge home to follow-up with Dr. Mcdonnell on have been in contact with Dr. Carrillo he has an appointment to see him as well. Exam Vital Signs (past 8 hours): - 12/06/23 03:41 12/06/23 07:51 12/06/23 07:59 Temperature 98.3 F Pulse Rate 92 H 98 H 84 Respiratory Rate 20 18 20 Blood Pressure 115/78 Pulse Oximetry 96 98 100 Oxygen Delivery Method Room Air Room Air Oxygen Flow Rate 0 12/06/23 08:00 12/06/23 08:29 12/06/23 08:31 Temperature Pulse Rate 109 H 108 H 109 H Respiratory Rate 18 Blood Pressure 120/79 120/79 120/79 Pulse Oximetry 94 Oxygen Delivery Method Oxygen Flow Rate 0 Oxygen Delivery Method Room Air Oxygen Flow Rate 0 Objective Labs 12/06/23 04:45 12/06/23 04:45 Labs: Laboratory Results - last 24 hr 12/06/23 04:45 WBC 4.5 RBC 3.74 L Hgb 12.8 L Hct 37.3 L MCV 99.9 MCH 34.1 H MCHC 34.1 RDW 12.8 Plt Count 147 L Neut % (Auto) 67.4 Lymph % (Auto) 18.7 L Walton % (Auto) 11.0 Eos % (Auto) 1.9 L Baso % (Auto) 1.0 Neut # (Auto) 3000 Lymph # (Auto) 800 L Walton # (Auto) 500 Eos # (Auto) 100 Baso # (Auto) 0 Sodium 139 Potassium 4.4 Chloride 105 Carbon Dioxide 28 BUN 25 H Creatinine 0.94 Estimated GFR > 60 BUN/Creatinine Ratio 26.6 H Glucose 75 L Calcium 9.5 Total Bilirubin 0.6 AST 25 ALT 23 Alkaline Phosphatase 64 Total Protein 6.3 Albumin 3.8 Globulin 2.5 Albumin/Globulin Ratio 1.5 [facility] Medical History Renal cyst Lesion of left [place] kidney URI (upper respiratory infection) COPD exacerbation Basal cell carcinoma (BCC) of right cheek (09/04/16) Colon polyps (06/30/11) Eczema Asthma Hayfever Foot pain (06/2016) Ankle pain (06/2016) Cataract (12/2015) Surgical History History of basal cell carcinoma (BCC) excision (09/04/16) History of phacoemulsification of cataract of left eye with intraocular lens implantation (05/02/16) History of phacoemulsification of cataract of right eye with intraocular lens implantation (04/18/16) History of colonoscopy with polypectomy (06/30/11) Family History Father Cancer Diabetes mellitus Hypertension Mother Cancer High cholesterol Grandfather No problems noted. Grandmother No problems noted. Grandfather No problems noted. Grandmother No problems noted. Social History marital status: household members: spouse and none Smoking Status: Never smoker alcohol intake: current substance use type: does not use Discharge Plan Discharge Plan Patient Disposition: Home Provider Discharge Comment: home f/u Discharge orders & Medications Prescriptions: New metoprolol succinate 50 mg Tablet Extended Release 24 Hr 100 mg PO BID Qty: 60 0RF digoxin 125 mcg (0.125 mg) Tablet 0.125 mg PO DAILY Qty: 30 0RF Continued benzonatate 100 mg capsule 100 mg PO BID PRN (Reason: cough) Qty: 20 0RF atorvastatin [Lipitor] 20 mg tablet 20 mg PO HS Qty: 90 3RF nitroglycerin 0.4 mg tablet, sublingual 0.4 mg sublingual Q5-15M PRN (Reason: Chest Pain) Rx Instructions: do not exceed 3 doses per episode spironolactone 25 mg tablet 25 mg PO DAILY tamsulosin [Flomax] 0.4 mg capsule 0.4 mg PO DAILY Qty: 90 3RF fluticasone propion-salmeterol [Wixela Inhub] 250-50 mcg/dose blister with device 1 inh inhalation BID Qty: 180 3RF Spiriva with HandiHaler 18 mcg capsule, w/inhalation device 1 cap inhalation DAILY Qty: 60 6RF Rx Instructions: puncture 1 cap using device; one dose = 2 inhalations Ventolin HFA 90 mcg/actuation HFA aerosol inhaler 2 puff Inhalation Q4HP PRN (Reason: shortness of breath or wheezing) Qty: 8 5RF albuterol sulfate 1.25 mg/3 mL solution for nebulization 1.25 mg inhalation Q4-6H PRN (Reason: shortness of breath or wheezing) Qty: 75 0RF furosemide 40 mg tablet 20 mg PO DAILY Qty: 90 0RF apixaban 5 mg tablet 5 mg PO BID Qty: 180 0RF montelukast 10 mg Tablet 10 mg PO BEDTIME losartan 50 mg tablet 50 mg PO BEDTIME Discontinued metoprolol succinate 50 mg tablet extended release 24 hr 50 mg PO DAILY Follow up/Referrals: Zurdo Mcdonnell MD [Primary Care Provider] - Visit Report/Discharge Packet Stand Alone Forms: Patient Portal/API, Stroke Signs & Symptoms Discharge Data Primary Care Provider: Zurdo Mcdonnell Quality VTE Deep Vein Thrombosis/Pulmonary Embolism Present on Admission: No
--- NOTE | 2023-12-06 10:19 | PC.NURSE ---
Day shift: Pt A&Ox3-4, hesitant on date but able to recall appropriately. Pt requesting to discharge, provider at bedside, pt agreeable to discharge plan. Follow up scheduled with Dr. Mcdonnell, primary care provider for 12/13/23 at 2:30pm, Dr. Carrillo rug frame mounter on 01/08/24 at 3pm. Discharge instructions provided to pt and two adult daughters at bedside. Questions answered. IV and telemetry discontinued. Contacted Dr. Mcdonnell regarding additional medications patient and family stated has no refills. Pt wheeled via wheelchair to private family vehicle by PCT and adult daughter at approximately 1105.
--- NOTE | 2023-12-06 11:46 | CM.DPNOTE ---
DC Note Discharge home today w/family to assist as needed. Patient refuses HH services at this time. Close outpatient follow up recommended. CONG
== END 2023-12-06 10:55 | disposition home or self-care (01) | DRG 308 ==
LOC: ED 19:47 → AC 19:48 → ICU 20:11
PROVIDERS: Admitting Provider Family Medicine; Emergency Provider Emergency Medicine; PCP Family Medicine; Referring Provider Emergency Medicine; Visit Provider Family Medicine
DX: I48.91 Unspecified atrial fibrillation (principal); I50.21 Acute systolic (congestive) heart failure; I08.1 Rheumatic disorders of both mitral and tricuspid valves; I11.0 Hypertensive heart disease with heart failure; I87.8 Other specified disorders of veins; R60.0 Localized edema; J44.9 Chronic obstructive pulmonary disease, unspecified; E83.119 Hemochromatosis, unspecified; N40.0 Benign prostatic hyperplasia without lower urinary tract symptoms; K59.00 Constipation, unspecified; E78.5 Hyperlipidemia, unspecified; D63.8 Anemia in other chronic diseases classified elsewhere; Z79.01 Long term (current) use of anticoagulants
CPT/HCPCS: 36415; 71045; 80048; 80053; 82550; 83690; 83735; 84484; 85025; 85610; 85730; 87797; 93005; 93010; 93306; 94640; 96374; 96375; 99284; 99291; J1160; J1940; J7613

== ENCOUNTER → 2024-01-04 08:32 | Outpatient (CLI) | payer MEDICARE, OTHER, SELFPAY ==
[2023-12-03 19:52] VITALS: BMI 25.7
[2024-01-04 09:14] LABS: Add Manual Diff / Slide Review NO; Basophils Absolute Auto 0 /uL (0-100); Basophils Percent Auto 0.9 % (0-2); Eosinophils Absolute Auto 300 /uL (0-450); Eosinophils Percent Auto 5.5 % (2-4); Hematocrit 37.8 % (41-53); Hemoglobin 12.9 g/dL (13.5-17.5); Lymphocytes Absolute Auto 1000 /uL (1100-4500); Lymphocytes Percent Auto 21.8 % (25-40); Mean Corpuscular HGB Conc 34.2 % (30-36); Mean Corpuscular Hemoglobin 33.5 PG (26-34); Monocytes Absolute Auto 500 /uL (0-900); Monocytes Percent Auto 10.8 % (3-14); Neutrophils Absolute Auto 2800 /uL (1500-7000); Platelet Count 184 X10^3/uL (150-400); Red Blood Cell Count 3.85 X10^6/uL (4.5-5.9); Red Cell Distribution Width 12.5 % (11.6-14.8); White Blood Cell Count 4.5 X10^3/uL (4.5-11.0)
[2024-01-04 09:28] LABS: BUN Creatinine Ratio 25.5 (6-22); Blood Urea Nitrogen 28 mg/dL (9-20); Calcium 8.6 mg/dL (8.4-10.2); Carbon Dioxide 27 mmol/L (22-32); Chloride 104 mmol/L (98-107); Estimated Glomerular Filt Rate > 60 mL/min (>60); Glucose 96 mg/dL (80-110); HEMOLYSIS < 15 (0-50); Potassium 4.4 mmol/L (3.4-5.1); Sodium 139 mmol/L (137-145)
[2024-01-04 09:35] LABS: NT-proBNP (BNP-Adult 18+) 2420 pg/mL (<450)
== END ==
LOC: LAB 08:34
PROVIDERS: PCP Family Medicine; Referring Provider Internal Medicine Cardiovascular Disease; Visit Provider Internal Medicine Cardiovascular Disease
DX: R06.09 Other forms of dyspnea (principal); I48.92 Unspecified atrial flutter
CPT/HCPCS: 36415; 80048; 83880; 85025

== ENCOUNTER → 2024-01-08 14:27 | Outpatient (CLI) | payer MEDICARE, OTHER, SELFPAY ==
[2023-12-03 19:52] VITALS: BMI 25.7
--- NOTE | 2024-01-08 14:30 | DI.CT.S_ITS ---
PROCEDURE: CT ABDOMEN RENAL PROTOCOL INDICATIONS: Follow-up renal lesions TECHNIQUE: Optional 5 mm thick noncontrast images acquired from the diaphragm to the iliac crests. After the administration of intravenous contrast, 5 mm thick images again acquired from the diaphragm to the iliac crests in the arterial and urographic phases. 5 mm thick coronal and sagittal reformats were then acquired. For radiation dose reduction, the following was used: automated exposure control, adjustment of mA and/or kV according to patient size. COMPARISON: [facility], CT, CT ABDOMEN RENAL PROTOCOL, 10/03/2023, 10:13. [facility], CT, CT ABDOMEN RENAL PROTOCOL, 06/22/2023, 9:36. FINDINGS: Image quality: Diagnostic Lower chest: Partially seen lower lung ground-glass opacities and reticulation as before. Consider further evaluation with high-resolution protocol chest imaging if clinically indicated for interstitial lung disease if there are PFT abnormalities. No drainable pleural effusions. There are coronary calcifications and cardiomegaly. Liver: No suspicious hypervascular liver lesion. Again seen are possible small cysts. Gallbladder and biliary system: Unremarkable, nondilated Pancreas: No suspicious hypervascular lesion Spleen: Nonenlarged Adrenals: No discrete nodules Kidneys: No hydronephrosis. The renal veins appear patent. Renal contrast excretion is seen in the collecting systems. There are bilateral cysts. Subcentimeter lesions are too small to characterize, also probably cysts. Stable subtle enhancing lesion at the lateral margin of the right kidney measuring 8 mm (5/35) Left lower pole 2.6 x 2.7 cm enhancing mass is stable compared to September 2023, very slightly enlarged compared to May of 2023. 5/41. 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 The main portal vein appears patent. No pathologic lymph nodes by size criteria. Bowel and peritoneum: No bowel obstruction or pathologic ascites. There are colonic diverticula. Body wall: Unremarkable Pelvis: Not imaged on this study Bones: Degenerative changes. There are partially visualized subtle lucencies in the pelvic bones. IMPRESSION: Stable CT compared to September regarding the enhancing lesions in both kidneys. The left lower pole enhancing lesion is slightly enlarged compared to May of 2023. No macroscopic invasion the renal vasculature. No pathologic lymph nodes by size criteria. Subtle lucencies are seen in the partially visualized pelvic bones, which may relate to senescent heterogeneous demineralization. Either CT or MR follow-up or a separate bone scan could be used to further assess. Other findings as above Dictated by: Sridhar Wan M.D. on 01/08/2024 at 15:20 Approved by: Sridhar Wan M.D. on 01/08/2024 at 15:31
== END ==
PROVIDERS: PCP Family Medicine; Referring Provider Urology; Visit Provider Urology
DX: N28.1 Cyst of kidney, acquired (principal); N28.9 Disorder of kidney and ureter, unspecified
CPT/HCPCS: 74170; Q9967

== ENCOUNTER → 2024-02-11 09:41 | Outpatient (CLI) | payer MEDICARE, OTHER, SELFPAY ==
[2023-12-03 19:52] VITALS: BMI 25.7
== END ==
PROVIDERS: PCP Family Medicine; Visit Provider Physician Assistant Medical
DX: R23.8 Other skin changes (principal)
CPT/HCPCS: 87070; 87075; 87077; 87147; 87186; 87205

== ENCOUNTER → 2024-02-15 13:51 | Outpatient (CLI) | payer MEDICARE, OTHER, SELFPAY ==
[2023-12-03 19:52] VITALS: BMI 25.7
--- NOTE | 2024-02-15 13:52 | DI.RAD.S_ITS ---
PROCEDURE: XR CHEST 2V INDICATIONS: Cough TECHNIQUE: 2 views of the chest were acquired. COMPARISON: [facility], CR, XR CHEST 1V, 12/03/2023, 16:37. FINDINGS: Surgical changes and devices: None. Lungs and pleura: Vascular markings in bilateral hilar region are seen with bronchial wall thickening. No definite focal infiltrate. Chronic increased interstitial lung markings are noted bilaterally. No pleural effusions or pneumothorax. Mediastinum: Mediastinal contours are normal. Heart size is enlarged. Bones and chest wall: No suspicious bony abnormalities. Soft tissues appear unremarkable. IMPRESSION: Suggestion of reactive airway disease such as bronchitis or asthma. Chronic interstitial lung parenchymal disease. No pleural effusion or pneumothorax. No definite focal infiltrate. Dictated by: Raul Brenner M.D. on 02/15/2024 at 15:43 Approved by: Raul Brenner M.D. on 02/15/2024 at 15:43
== END ==
PROVIDERS: PCP Family Medicine; Referring Provider Nurse Practitioner Family; Visit Provider Nurse Practitioner Family
DX: R05.9 Cough, unspecified (principal)
CPT/HCPCS: 71046

== ENCOUNTER → 2024-02-22 10:44 | Outpatient (CLI) | payer MEDICARE, OTHER, SELFPAY ==
[2023-12-03 19:52] VITALS: BMI 25.7
== END ==
LOC: WC 02-28 10:45
PROVIDERS: PCP Family Medicine; Referring Provider Physician Assistant; Visit Provider Physician Assistant
DX: L97.512 Non-pressure chronic ulcer of other part of right foot with fat layer exposed (principal); L97.511 Non-pressure chronic ulcer of other part of right foot limited to breakdown of skin; S81.811A Laceration without foreign body, right lower leg, initial encounter; L08.89 Other specified local infections of the skin and subcutaneous tissue; R60.0 Localized edema; R23.4 Changes in skin texture; I48.91 Unspecified atrial fibrillation; I10 Essential (primary) hypertension; Z79.01 Long term (current) use of anticoagulants
CPT/HCPCS: 11042; 87070; 87075; 87205; 99204; 99213

== ENCOUNTER → 2024-02-29 11:44 | Outpatient (CLI) | payer MEDICARE, OTHER, SELFPAY ==
[2023-12-03 19:52] VITALS: BMI 25.7
== END ==
LOC: WC 11:45
PROVIDERS: PCP Family Medicine; Referring Provider Family Medicine; Visit Provider Physician Assistant
DX: L97.512 Non-pressure chronic ulcer of other part of right foot with fat layer exposed (principal); I87.2 Venous insufficiency (chronic) (peripheral); S81.811A Laceration without foreign body, right lower leg, initial encounter; R60.0 Localized edema; R23.4 Changes in skin texture; I11.0 Hypertensive heart disease with heart failure; J44.9 Chronic obstructive pulmonary disease, unspecified; I48.91 Unspecified atrial fibrillation; Z79.01 Long term (current) use of anticoagulants
CPT/HCPCS: 11042; 99213

== ENCOUNTER → 2024-03-28 09:15 | Outpatient (CLI) | payer MEDICARE, OTHER, SELFPAY ==
[2023-12-03 19:52] VITALS: BMI 25.7
== END ==
LOC: WC 09:16
PROVIDERS: PCP Family Medicine; Referring Provider Physician Assistant; Visit Provider Physician Assistant
DX: S81.011A Laceration without foreign body, right knee, initial encounter (principal); J44.9 Chronic obstructive pulmonary disease, unspecified; I48.91 Unspecified atrial fibrillation; I11.0 Hypertensive heart disease with heart failure; Z79.01 Long term (current) use of anticoagulants
CPT/HCPCS: 11042; 99213

== ENCOUNTER → 2024-04-04 08:36 | Outpatient (CLI) | payer MEDICARE, OTHER, SELFPAY ==
[2023-12-03 19:52] VITALS: BMI 25.7
== END ==
PROVIDERS: PCP Family Medicine; Referring Provider Physician Assistant; Visit Provider Physician Assistant
DX: S81.011A Laceration without foreign body, right knee, initial encounter (principal); L97.512 Non-pressure chronic ulcer of other part of right foot with fat layer exposed; I87.2 Venous insufficiency (chronic) (peripheral); I48.91 Unspecified atrial fibrillation; I11.0 Hypertensive heart disease with heart failure; K44.9 Diaphragmatic hernia without obstruction or gangrene; Z79.01 Long term (current) use of anticoagulants
CPT/HCPCS: 99212; 99213

== ENCOUNTER → 2024-04-24 14:29 | Outpatient (CLI) | payer MEDICARE, OTHER, SELFPAY ==
[2023-12-03 19:52] VITALS: BMI 25.7
[2024-04-24 16:38] LABS: BUN Creatinine Ratio 30.5 (6-22); Blood Urea Nitrogen 36 mg/dL (9-20); Calcium 9.3 mg/dL (8.4-10.2); Carbon Dioxide 30 mmol/L (22-32); Chloride 104 mmol/L (98-107); Estimated Glomerular Filt Rate 59 mL/min (>60); Glucose 96 mg/dL (80-110); HEMOLYSIS < 15 (0-50); Potassium 4.9 mmol/L (3.4-5.1); Sodium 138 mmol/L (137-145)
== END ==
PROVIDERS: Urology; PCP Family Medicine; Referring Provider Internal Medicine Cardiovascular Disease; Visit Provider Internal Medicine Cardiovascular Disease
DX: I50.21 Acute systolic (congestive) heart failure (principal); I11.0 Hypertensive heart disease with heart failure; D17.9 Benign lipomatous neoplasm, unspecified; N28.1 Cyst of kidney, acquired; Z79.01 Long term (current) use of anticoagulants
CPT/HCPCS: 36415; 80048

== ENCOUNTER → 2024-05-09 06:58 | Outpatient (CLI) | payer MEDICARE, OTHER, SELFPAY ==
[2023-12-03 19:52] VITALS: BMI 25.7
--- NOTE | 2024-05-09 07:01 | DI.MG.S_ITS ---
MALE BILATERAL DIGITAL DIAGNOSTIC MAMMOGRAM 3D/2D: 05/09/2024 CLINICAL: Palpable left breast lump. No prior exams were available for comparison. Left greater than right gynecomastia. No significant masses, calcifications, or other findings are seen in either breast. IMPRESSION: BENIGN There is no mammographic evidence of malignancy. Left greater than right gynecomastia. Clinical evaluation recommended. If symptoms worsen or becomes clinically concerning otherwise, recommend repeat imaging. This exam was interpreted at Station ID: [id number]. NOTE: For mammograms, a report in lay terms will be sent to the patient. Approximately 15% of breast malignancies will not be visualized mammographically. In the management of a palpable breast mass, a negative mammogram must not discourage biopsy of a clinically suspicious lesion. Electronically Signed By: Sridhar Wan M.D. lc/:05/09/2024 09:46:35 letter sent: Clinical Evaluation ACR BI-RADS Category 2: Benign Finding(s) 3342F
== END ==
LOC: MAMMO 06:59
PROVIDERS: PCP Family Medicine; Referring Provider Surgery; Visit Provider Surgery
DX: N62 Hypertrophy of breast (principal); N63.20 Unspecified lump in the left breast, unspecified quadrant
CPT/HCPCS: 77066; G0279

== ENCOUNTER → 2024-07-08 | Outpatient (CLI) | payer MEDICARE, OTHER, SELFPAY ==
[2023-12-03 19:52] VITALS: BMI 25.7
--- NOTE | 2024-07-08 07:00 | DI.CT.S_ITS ---
PROCEDURE: CT ABDOMEN RENAL PROTOCOL INDICATIONS: Follow-up renal lesion TECHNIQUE: Optional 5 mm thick noncontrast images acquired from the diaphragm to the iliac crests. After the administration of intravenous contrast, 5 mm thick images again acquired from the diaphragm to the iliac crests in the arterial and urographic phases. 5 mm thick coronal and sagittal reformats were then acquired. For radiation dose reduction, the following was used: automated exposure control, adjustment of mA and/or kV according to patient size. COMPARISON: [facility], CT, CT ABDOMEN RENAL PROTOCOL, 10/03/2023, 10:13. [facility], CT, CT ABDOMEN RENAL PROTOCOL, 04/07/2024, 8:11. FINDINGS: Image quality: Diagnostic. Kidneys and Ureters: -Left kidney inferior pole lesion measuring 3.1 x 2.7 cm, (100), unchanged in the short-term interval, previously 2.8 x 2.5 cm on 10/03/2023. Late enhancement. -Left kidney inferior pole possible fat containing lesion measuring 1.5 cm, (/109), previously 1.4 cm. No convincing enhancement. -Left kidney superior pole exophytic cyst measuring 5.8 x 5.4 cm, (/105), previously 5.6 x 5.5 cm. Trace dependent calcification. -Right kidney interpolar lesion measuring 0.8 cm, (/), previously 0.8 cm on 10/03/2023. Questionable enhancement. -Several additional bilateral renal cysts. No hydronephrosis. No hydroureter. No filling defect within the proximal ureter. OTHER: Lower chest: Patchy ground-glass opacity. Small bilateral pleural effusions, slightly increased. Coronary artery calcifications. Trace pericardial fluid. Liver: No solid mass. Gallbladder: Trace pericholecystic fluid. No gallstones. Biliary ducts: No biliary dilation. Pancreas: No ductal dilation. Spleen: Size is within normal limits. Adrenal Glands: No adrenal nodules. Stomach and Bowel: Normal colonic caliber, without significant wall thickening. Peritoneum: No abnormal intraperitoneal fluid. No free air. Ventral Wall: No hernia. Abdominal Nodes: No retroperitoneal or mesenteric adenopathy by size criteria. Vessels: Aorta and inferior vena cava are normal in size. Bones: No aggressive osseous abnormality. IMPRESSION: 1. Left kidney inferior pole lesion measuring 3.1 cm is slightly increased in size compared to September 2023. Indeterminate. Suspicious for HCC. Ultrasound or CT-guided biopsy could be considered for further evaluation. 2. Left kidney inferior pole possible fat containing lesion measuring 1.5 cm is unchanged. This could represent a small angiomyolipoma. 3. Right kidney interpolar lesion measuring 0.8 cm is unchanged. Possible small mass or complicated cyst. 4. Small bilateral pleural effusions. 5. No adenopathy. Dictated by: Chano Sanchez M.D. on 07/10/2024 at 16:15 Approved by: Chano Sanchez M.D. on 07/10/2024 at 16:45
[2024-07-08 07:34] LABS: Blood Urea Nitrogen 33 mg/dL (9-20); Calcium 9.2 mg/dL (8.4-10.2); Carbon Dioxide 30 mmol/L (22-32); Chloride 106 mmol/L (98-107); Estimated Glomerular Filt Rate 54 mL/min (>60); Glucose 93 mg/dL (80-110); HEMOLYSIS < 15 (0-50); Potassium 4.3 mmol/L (3.4-5.1); Sodium 141 mmol/L (137-145)
== END ==
PROVIDERS: PCP Family Medicine; Referring Provider Urology; Visit Provider Urology
DX: N28.9 Disorder of kidney and ureter, unspecified (principal); N28.1 Cyst of kidney, acquired; D17.9 Benign lipomatous neoplasm, unspecified; J90 Pleural effusion, not elsewhere classified; I25.10 Atherosclerotic heart disease of native coronary artery without angina pectoris
CPT/HCPCS: 36415; 74170; 80048; Q9967

== ENCOUNTER → 2025-02-05 15:48 | Outpatient (CLI) | payer MEDICARE, OTHER, SELFPAY ==
[2025-01-05 09:54] VITALS: BMI 25.7
[2025-02-05 16:28] LABS: Hematocrit 37.2 % (41-53); Hemoglobin 12.4 g/dL (13.5-17.5); Mean Corpuscular HGB Conc 33.4 % (30-36); Mean Corpuscular Hemoglobin 35.1 PG (26-34); Mean Corpuscular Volume 105.1 fL (80-100); Platelet Count 235 X10^3/uL (150-400); Red Blood Cell Count 3.54 X10^6/uL (4.5-5.9); Red Cell Distribution Width 13.4 % (11.6-14.8)
[2025-02-05 16:43] LABS: BUN Creatinine Ratio 26.2 (6-22); Blood Urea Nitrogen 34 mg/dL (9-20); Calcium 9.2 mg/dL (8.4-10.2); Carbon Dioxide 26 mmol/L (22-32); Chloride 102 mmol/L (98-107); Estimated Glomerular Filt Rate 53 mL/min (>60); Glucose 106 mg/dL (80-110); HEMOLYSIS < 15 (0-50); Potassium 4.9 mmol/L (3.4-5.1); Sodium 137 mmol/L (137-145)
[2025-02-05 16:54] LABS: NT-proBNP (BNP-Adult 18+) 3580 pg/mL (<450)
== END ==
PROVIDERS: PCP Family Medicine; Referring Provider Family Medicine; Visit Provider Internal Medicine Cardiovascular Disease
DX: R06.09 Other forms of dyspnea (principal); I48.92 Unspecified atrial flutter
CPT/HCPCS: 36415; 80048; 83880; 85027

== ENCOUNTER → 2025-06-29 07:07 | Outpatient (CLI) | payer MEDICARE, OTHER, SELFPAY ==
[2025-01-05 09:54] VITALS: BMI 25.7
[2025-06-29 08:50] LABS: Alanine Aminotransferase 25 IU/L (<50); Albumin 4.0 g/dL (3.5-5.0); Albumin Globulin Ratio 1.5 (1.0-2.8); Alkaline Phosphatase 80 U/L (38-126); Blood Urea Nitrogen 35 mg/dL (9-20); Calcium 9.3 mg/dL (8.4-10.2); Carbon Dioxide 26 mmol/L (22-32); Chloride 108 mmol/L (98-107); Cholesterol 123 mg/dL (140-199); Estimated Glomerular Filt Rate 46 mL/min (>60); Globulin 2.6 g/dL (1.7-4.1); Glucose 87 mg/dL (70-99); HDL Cholesterol 44 mg/dL (40-60); HEMOLYSIS < 15 (0-50); Potassium 4.4 mmol/L (3.4-5.1); Sodium 140 mmol/L (137-145); Total Protein 6.6 g/dL (6.3-8.2); Triglycerides 86 mg/dL (35-150)
[2025-06-29 09:13] LABS: TSH w/ Reflex to FT4 0.03 uIU/mL (0.47-4.68)
[2025-06-29 09:40] LABS: Free T4, Direct Thyroxine 2.30 ng/dL (0.78-2.19)
[2025-06-29 16:17] LABS: NT-proBNP (BNP-Adult 18+) 4570 pg/mL (<450)
== END ==
PROVIDERS: PCP Family Medicine; Referring Provider Family Medicine; Visit Provider Physician Assistant
DX: I10 Essential (primary) hypertension (principal); I50.22 Chronic systolic (congestive) heart failure; J44.9 Chronic obstructive pulmonary disease, unspecified; I48.91 Unspecified atrial fibrillation; E78.2 Mixed hyperlipidemia; I50.9 Heart failure, unspecified; E83.119 Hemochromatosis, unspecified
CPT/HCPCS: 36415; 80053; 80061; 83880; 84439; 84443

== ENCOUNTER 2025-06-29 19:18 | Inpatient (IN) | payer MEDICARE, OTHER, SELFPAY ==
[2025-01-05 09:54] VITALS: BMI 25.7
[2025-06-29] VITALS (13 sets, daily range): BP systolic 90–114; BP diastolic 50–62; PULSE 84–116; RESP 20–27; TEMP 37.4–38.6; O2SAT 91–99; BMI 27.1
--- NOTE | 2025-06-29 19:25 | DI.RAD.S_ITS ---
PROCEDURE: XR CHEST 1V INDICATIONS: suspected sepsis TECHNIQUE: One view of the chest was acquired. COMPARISON: [facility], CR, XR CHEST 2V, 02/15/2024, 13:51. [facility], CR, XR CHEST 1V, 12/03/2023, 16:37. FINDINGS: Surgical changes and devices: None. Lungs and pleura: Again seen chronic increased interstitial markings. No pleural effusions or pneumothorax. Mediastinum: Mediastinal contours appear normal. Heart size is normal. Bones and chest wall: No suspicious bony lesions. Overlying soft tissues appear unremarkable. IMPRESSION: Again seen areas of increased interstitial markings which may represent a chronic interstitial lung disease. No definite focal consolidative opacities which are new compared to prior. Dictated by: Timothy Roper M.D. on 06/29/2025 at 20:07 Approved by: Timothy Roper M.D. on 06/29/2025 at 20:08
[2025-06-29 19:44] LABS: Add Manual Diff / Slide Review NO; Hematocrit 35.3 % (41-53); Hemoglobin 12.2 g/dL (13.5-17.5); Lymphocytes Absolute Auto 700 /uL (1100-4500); Mean Corpuscular HGB Conc 34.4 % (30-36); Mean Corpuscular Hemoglobin 36.4 PG (26-34); Mean Corpuscular Volume 105.8 fL (80-100); Platelet Count 174 X10^3/uL (150-400)
[2025-06-29 19:48] LABS: Appearance Urine UA CLEAR; Bilirubin Urine UA NEGATIVE (NEGATIVE); Color Urine UA YELLOW; Glucose Urine UA 3+ g/dL (Negative); Ketones Urine UA NEGATIVE (NEGATIVE); Leukocyte Esterase Urine UA NEGATIVE (NEGATIVE); Nitrite Urine UA NEGATIVE (Negative); Occult Blood Urine UA NEGATIVE (Negative); Protein Urine UA NEGATIVE (Negative); Specific Gravity Urine UA 1.010 (1.000-1.035); Urobilinogen Urine UA 0.2 E.U./dL (0.2); pH Urine UA 5.5 (4.5-8.0)
--- NOTE | 2025-06-29 19:49 | EKG_ITS ---
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
[2025-06-29 19:51] LABS: INR 1.3 (0.9-1.3); Prothrombin Time 14.9 SECONDS (9.4-12.5)
[2025-06-29 19:54] LABS: PTT Partial Thromboplastin Tim 27 SECONDS (25.1-36.5)
[2025-06-29 19:55] LABS: Lactate (Lactic Acid) 1.9 mmol/L (0.7-2.1)
[2025-06-29 19:56] LABS: Alanine Aminotransferase 28 IU/L (<50); Albumin 4.2 g/dL (3.5-5.0); Albumin Globulin Ratio 1.6 (1.0-2.8); Alkaline Phosphatase 79 U/L (38-126); Blood Urea Nitrogen 43 mg/dL (9-20); Calcium 9.5 mg/dL (8.4-10.2); Carbon Dioxide 20 mmol/L (22-32); Chloride 107 mmol/L (98-107); Estimated Glomerular Filt Rate 42 mL/min (>60); Globulin 2.6 g/dL (1.7-4.1); Glucose 130 mg/dL (70-99); HEMOLYSIS < 15 (0-50); Lipase 114 U/L (23-300); Potassium 4.6 mmol/L (3.4-5.1); Sodium 138 mmol/L (137-145); Total Protein 6.8 g/dL (6.3-8.2)
[2025-06-29 20:01] LABS: Culture Indicated Urine Cult Not Indicated
[2025-06-29 20:13] LABS: Procalcitonin 0.163 ng/mL (<0.5)
[2025-06-29 20:20] LABS: Influenza A - CEPHEID Flu A NEGATIVE (NEGATIVE); Influenza B - CEPHEID Flu B NEGATIVE (NEGATIVE)
[2025-06-29 20:25] LABS: COVID-19 CEPHEID 4-PLEX PCR Negative (Negative)
[2025-06-29] MEDS: SODIUM CHLORIDE 0.9% 1,000 ML 1000 ML IV (20:46)
[2025-06-29] MEDS: ACETAMINOPHEN 325 MG TABLET 650 MG PO (20:46)
[2025-06-29] MEDS: SODIUM CHLORIDE 0.9% 1,000 ML 250 ML IV (20:47)
--- NOTE | 2025-06-29 21:54 | ED_ITS ---
HPI - General Adult General Chief complaint: Weakness Stated complaint: GLF, weakness, fever Time Seen by Provider: 06/29/25 19:34 Source: patient and EMS Mode of arrival: EMS History of Present Illness HPI narrative: 89-year-old male lives with on [address], noted to feel weak at the dinner table by who called daughter in [place] who is at the bedside for history, patient slumped then fell off the chair attempting to get up from the table, felt weak, brought in by ambulance. Denies feeling feverish. He denies pain to his head neck face chest upper middle lower back abdomen hips lower extremities upper extremities. No skin rashes. He would not lose consciousness. No nausea or vomiting. Related Data Home Medications ?Medication ?Instructions ?Recorded ?Confirmed montelukast 10 mg tablet 10 mg PO BEDTIME 03/03/21 nitroglycerin 0.4 mg sublingual 0.4 mg sublingual Q5-1 5M PRN Chest 07/26/21 06/30/25 tablet Pain spironolactone 25 mg tablet 25 mg PO DAILY 07/26/21 torsemide 10 mg tablet 10 mg PO BID 07/11/24 empagliflozin 10 mg tablet 10 mg PO DAILY 12/18/2404/19 (Jardiance) losartan 25 mg tablet 25 mg PO DAILY 12/18/2404/19 vitamins A,C,O-bbzb-[id number] 4,296 1 cap PO .qd 12/18/24 06/30/25 mcg-226 mg-90 mg capsule (PreserVision AREDS) amiodarone 200 mg tablet 100 mg PO DAILY 06/30/2504/19 Previous Rx's ?Medication ?Instructions ?Recorded atorvastatin 20 mg tablet (Lipitor) 20 mg PO HS #90 ta bs 04/15/21 apixaban 5 mg tablet 5 mg PO BID #180 tabs metoprolol succinate 50 mg 100 mg (2 x 50 mg) PO BID # 360 tabs 12/24/23 tablet,extended release 24 hr albuterol sulfate 1.25 mg/3 mL 1.25 mg (3 mL) inhalati on Q4-6H 06/10/24 solution for nebulization PRN for wheezing #75 mL fluticasone 250 mcg-salmeterol 50 1 inh inhalation BID #180 ea 08/04/24 mcg/dose blistr powdr for inhalation (Wixela Inhub) tamsulosin 0.4 mg capsule (Flomax) 0.8 mg (2 x 0.4 mg) PO DAILY #180 12/17/24 caps albuterol sulfate 90 mcg/actuation 2 puff PO Q4H PRN f or wheezing 01/20/25 aerosol inhaler #6.7 grams albuterol sulfate 90 mcg/actuation 2 puff PO Q6H PRN f or wheezing 02/02/25 aerosol inhaler #6.7 grams tiotropium bromide 18 mcg capsule 1 cap inhalation SHIRLEY LY #60 caps 03/23/25 with inhalation device (Spiriva with HandiHaler) Allergies Allergy/AdvReac Type Severity Reaction Status Date / Time venom-honey bee (BEE VENOM Allergy Severe severe Verified 12/18/24 14:04 (HONEY BEE)) edema Patient History Medical History Acute systolic (congestive) heart failure Incomplete emptying of bladder Angiomyolipoma Nodule of skin of chest Renal cyst Lesion of left [place] kidney URI (upper respiratory infection) COPD exacerbation Basal cell carcinoma (BCC) of right cheek (09/04/16) Colon polyps (06/30/11) Eczema Asthma Hayfever Foot pain (06/2016) Ankle pain (06/2016) Cataract (12/2015) Surgical History History of basal cell carcinoma (BCC) excision (09/04/16) History of phacoemulsification of cataract of left eye with intraocular lens implantation (05/02/16) History of phacoemulsification of cataract of right eye with intraocular lens implantation (04/18/16) History of colonoscopy with polypectomy (06/30/11) Family History Father Cancer Diabetes mellitus Hypertension Mother Cancer High cholesterol Grandfather No problems noted. Grandmother No problems noted. Grandfather No problems noted. Grandmother No problems noted. Social History marital status: household members: spouse and none lives independently: Yes occupational status: previously employed Smoking Status: Never smoker alcohol intake: current substance use type: does not use alcohol intake frequency: holidays/special occasions only Exam Narrative Exam Narrative: GENERAL: Well-developed patient, in mild distress. HEAD: Atraumatic. Normocephalic. EYES: Pupils equal round and reactive. Extraocular motions intact. No scleral icterus. No injection or drainage. ENT: Nose without bleeding, purulent drainage. Throat without erythema, tonsillar hypertrophy or exudate. Airway patent. NECK: Trachea midline. Non tender CARDIOVASCULAR: Irregularly irregular rhythm, not particularly fast or slow rate, without obvious murmurs, gallops, or rubs. RESPIRATORY: Clear to auscultation. Breath sounds equal bilaterally. No wheezes, rales, or rhonchi. GASTROINTESTINAL: Abdomen soft, non-tender, nondistended. EXTREMITIES: No edema or joint tenderness. BACK: Nontender without deformity or crepitance. No flank tenderness. NEURO: AOx3. Motor functions grossly nonfocal. SKIN: No rash or erythema of visible areas Initial Vital Signs Initial Vital Signs: Vital Signs Temperature 101.4 F H 06/29/25 19:38 Pulse Rate 116 H 06/29/25 19:38 Respiratory Rate 20 06/29/25 19:38 Blood Pressure 114/57 L 06/29/25 19:38 Pulse Oximetry 91 06/29/25 19:38 Oxygen Delivery Method Room Air 06/29/25 19:38 Course Orders Ordered: Albuterol (Albuterol 2.5 Mg/3 Ml Neb (Adult)) 2.5 mg INH Q2H PRN PRN Reason: Shortness Of Breath Or Wheezing Albuterol (Albuterol 2.5 Mg/3 Ml Neb (Adult)) 2.5 mg INH [id number] [facility] Last Admin: 06/30/25 15:22 Dose: 2.5 mg Documented By: Admin: 06/30/25 12:29 Dose: Not Given Documented By: CAROLINA Amiodarone HCl (Amiodarone 200 Mg Tablet) 100 mg PO DAILY [facility] Last Admin: 06/30/25 09:51 Dose: 100 mg Documented By: CAROLINA Apixaban (Apixaban 5 Mg Tablet) 5 mg PO BID [facility] Last Admin: 06/30/25 09:52 Dose: 5 mg Documented By: CLP Atorvastatin Calcium (Atorvastatin 20 Mg Tablet) 20 mg PO BEDTIME [facility] Budesonide (Budesonide 0.5 Mg/2 Ml Neb) 0.5 mg INH RTBID [facility] Furosemide (Furosemide 40 Mg/4 Ml Vial) 40 mg IV DAILY [facility] Last Admin: 06/30/25 09:52 Dose: 40 mg Documented By: CLP Ceftriaxone Sodium 1,000 mg/ (Sodium Chloride) 100 mls @ 200 mls/hr IV Q24H JOSE EDUARDO Doxycycline Hyclate 100 mg/ (Sodium Chloride) 100 mls @ 100 mls/hr IV Q12H [facility] Last Infusion: 06/30/25 13:20 Dose: Infused Documented By: Admin: 06/30/25 12:19 Dose: 100 mls/hr Documented By: CLP Sodium Chloride (Normal Saline 0.9%) 250 mls @ 21 mls/hr IV Q24H PRN PRN Reason: Flush Last Infusion: 06/30/25 12:29 Dose: 0 mls/hr Documented By: Admin: 06/30/25 12:28 Dose: 21 mls/hr Documented By: CLP Losartan Potassium (Losartan 25 Mg Tablet) 25 mg PO BEDTIME [facility] Metoprolol Succinate (Metoprolol Er 50 Mg Tablet) 50 mg PO BID [facility] Last Admin: 06/30/25 09:52 Dose: 50 mg Documented By: CLP Naloxone HCl (Naloxone 0.4 Mg/Ml Vial) 0.2 mg IV Q2MIN PRN PRN Reason: Opiate Reversal Empagliflozin [ Jardiance] 10 Mg Tablet 10 mg PO DAILY [facility] Last Admin: 06/30/25 09:53 Dose: Not Given Documented By: CLP Sennosides (Sennosides 8.6 Mg Tablet) 17.2 mg PO BEDTIME [facility] Sodium Chloride (Sodium Chloride 0.9% Flush) 10 ml IV BID [facility] Last Admin: 06/30/25 09:52 Dose: 10 ml Documented By: CLP Sodium Chloride (Sodium Chloride 0.9% Flush) 10 ml IV PRN PRN PRN Reason: Flush Spironolactone (Spironolactone 25 Mg Tablet) 25 mg PO DAILY [facility] Last Admin: 06/30/25 09:52 Dose: 25 mg Documented By: CLP Tamsulosin HCl (Tamsulosin 0.4 Mg Capsule) 0.8 mg PO BEDTIME [facility] Discontinued Medications Acetaminophen (Acetaminophen 325 Mg Tablet) 650 mg PO NOW ONE Stop: 06/29/25 19:45 Last Admin: 06/29/25 20:46 Dose: 650 mg Documented By: RO Albuterol (Albuterol 2.5 Mg/3 Ml Neb (Adult)) 2.5 mg INH Q4HRWA JOSE EDUARDO Last Admin: 06/30/25 09:14 Dose: 2.5 mg Documented By: LOLY Albuterol/Ipratropium (Albuterol/Ipratropium 3 Ml Ampul) 3 ml INH NOW ONE Stop: 06/30/25 01:03 Last Admin: 06/30/25 01:12 Dose: 3 ml Documented By: PATRICIA Doxycycline Hyclate (Doxycycline Hyclate 100 Mg Tablet) 100 mg PO NOW ONE Stop: 06/30/25 00:18 Last Admin: 06/30/25 00:46 Dose: 100 mg Documented By: PAT Sodium Chloride (Normal Saline 0.9%) 1,000 mls @ 1,000 mls/hr IV BOLUS ONE Stop: 06/29/25 20:24 Last Infusion: 06/29/25 21:02 Dose: Infused Documented By: Admin: 06/29/25 20:46 Dose: 1,000 mls/hr Documented By: RO Sodium Chloride (Normal Saline 0.9%) 1,000 mls @ 250 mls/hr IV BOLUS ONE Stop: 06/29/25 23:33 Last Infusion: 06/30/25 00:58 Dose: Infused Documented By: JLouise Admin: 06/29/25 20:47 Dose: 250 mls/hr Documented By: RO Ceftriaxone Sodium 1,000 mg/ (Sodium Chloride) 100 mls @ 200 mls/hr IV NOW ONE Stop: 06/30/25 00:18 Last Infusion: 06/30/25 01:39 Dose: Infused Documented By: Admin: 06/30/25 00:46 Dose: 200 mls/hr Documented By: PAT Sodium Chloride (Normal Saline 0.9%) 1,000 mls @ 1,000 mls/hr IV BOLUS ONE Stop: 06/30/25 03:01 Last Admin: 06/30/25 05:39 Dose: Not Given Documented By: ANTONIO NOREPINEPHRINE BITARTRATE/D5W (Levophed) 4 mg in 250 mls @ 34.019 mls/hr IV TITRATE [facility]; Protocol Last Admin: 06/30/25 09:15 Dose: Not Given Documented By: CAROLINA Losartan Potassium (Losartan 25 Mg Tablet) 50 mg PO DAILY [facility] Losartan Potassium (Losartan 25 Mg Tablet) 25 mg PO DAILY [facility] Last Admin: 06/30/25 12:13 Dose: Not Given Documented By: CAROLINA Metoprolol Succinate (Metoprolol Er 50 Mg Tablet) 100 mg PO BID [facility] Ondansetron HCl (Ondansetron 4 Mg/2 Ml Inj) 4 mg IV NOW PRN PRN Reason: Nausea And Vomiting Ondansetron HCl (Ondansetron 4 Mg Odt) 4 mg PO NOW PRN PRN Reason: Nausea And Vomiting Tamsulosin HCl (Tamsulosin 0.4 Mg Capsule) 0.8 mg PO DAILY [facility] Last Admin: 06/30/25 12:13 Dose: Not Given Documented By: CAROLINA Vital Signs Vital signs: Vital Signs - 8 hr 06/29/25 20:53 06/29/25 20:54 06/29/25 20:54 Temperature Pulse Rate 107 H 106 H Respiratory Rate 25 H 24 Blood Pressure 101/55 L Pulse Oximetry 92 93 Oxygen Delivery Method Nasal Cannula Oxygen Flow Rate 1 Fraction of Inspired Oxygen 06/29/25 21:00 06/29/25 21:00 06/29/25 21:30 Temperature Pulse Rate 109 H Respiratory Rate 25 H Blood Pressure 104/59 L 95/59 L Pulse Oximetry 93 Oxygen Delivery Method Nasal Cannula Oxygen Flow Rate 1 Fraction of Inspired Oxygen 06/29/25 21:30 06/29/25 21:34 06/29/25 22:00 Temperature 99.3 F Pulse Rate 100 H Respiratory Rate 27 H Blood Pressure 91/52 L Pulse Oximetry 92 Oxygen Delivery Method Oxygen Flow Rate Fraction of Inspired Oxygen 06/29/25 22:00 06/29/25 22:50 06/29/25 22:51 Temperature Pulse Rate 99 H 91 H 88 Respiratory Rate 24 Blood Pressure Pulse Oximetry 92 99 97 Oxygen Delivery Method Nasal Cannula Oxygen Flow Rate 1 Fraction of Inspired Oxygen 06/29/25 22:51 06/29/25 23:00 06/29/25 23:00 Temperature Pulse Rate 90 Respiratory Rate Blood Pressure 103/55 L 94/50 L Pulse Oximetry 97 Oxygen Delivery Method Nasal Cannula Oxygen Flow Rate Fraction of Inspired Oxygen 06/29/25 23:26 06/29/25 23:26 06/29/25 23:27 Temperature Pulse Rate 92 H Respiratory Rate Blood Pressure 90/50 L 103/62 Pulse Oximetry 97 Oxygen Delivery Method Oxygen Flow Rate Fraction of Inspired Oxygen 06/29/25 23:27 06/29/25 23:30 06/29/25 23:30 Temperature Pulse Rate 91 H 84 Respiratory Rate Blood Pressure 99/58 L Pulse Oximetry 97 98 Oxygen Delivery Method Oxygen Flow Rate Fraction of Inspired Oxygen 06/30/25 00:00 06/30/25 00:01 06/30/25 00:01 Temperature Pulse Rate 83 91 H Respiratory Rate Blood Pressure 129/59 L Pulse Oximetry 95 94 Oxygen Delivery Method Oxygen Flow Rate Fraction of Inspired Oxygen 06/30/25 00:30 06/30/25 00:31 06/30/25 00:31 Temperature Pulse Rate 83 85 Respiratory Rate Blood Pressure 97/51 L Pulse Oximetry 96 96 Oxygen Delivery Method Oxygen Flow Rate Fraction of Inspired Oxygen 06/30/25 01:00 06/30/25 01:00 06/30/25 01:13 Temperature Pulse Rate 86 89 Respiratory Rate 18 Blood Pressure 96/51 L Pulse Oximetry 94 97 Oxygen Delivery Method Nasal Cannula Oxygen Flow Rate 2 Fraction of Inspired Oxygen 28 06/30/25 01:30 06/30/25 01:31 06/30/25 01:31 Temperature Pulse Rate 87 84 Respiratory Rate Blood Pressure 112/55 L Pulse Oximetry 95 93 Oxygen Delivery Method Oxygen Flow Rate Fraction of Inspired Oxygen 06/30/25 02:00 06/30/25 02:01 06/30/25 02:01 Temperature Pulse Rate 87 87 Respiratory Rate Blood Pressure 81/54 L Pulse Oximetry 91 90 L Oxygen Delivery Method Oxygen Flow Rate Fraction of Inspired Oxygen 06/30/25 02:03 06/30/25 02:03 06/30/25 02:15 Temperature Pulse Rate 85 Respiratory Rate Blood Pressure 86/57 L 98/60 Pulse Oximetry 90 L Oxygen Delivery Method Room Air Oxygen Flow Rate Fraction of Inspired Oxygen 06/30/25 02:30 06/30/25 02:30 06/30/25 03:00 Temperature Pulse Rate 85 Respiratory Rate Blood Pressure 90/57 L 102/54 L Pulse Oximetry 94 Oxygen Delivery Method Oxygen Flow Rate Fraction of Inspired Oxygen 06/30/25 03:00 Temperature Pulse Rate 83 Respiratory Rate Blood Pressure Pulse Oximetry 95 Oxygen Delivery Method Oxygen Flow Rate Fraction of Inspired Oxygen Medical Decision Making Lab Data Lab results reviewed: Yes I reviewed the patient's lab results. Lab results narrative: White blood cell count 8600, hemoglobin 12.2, platelets adequate. Glucose 130. BUN 43 with creatinine 1.58. Serum CO2 20. Potassium and sodium levels normal. Liver functions and lipase normal. Urinalysis negative. COVID influenza RSV swab negative. Lactate and procalcitonin not elevated. 06/29/25 19:20 06/29/25 19:20 Labs: Lab Results 06/29/25 06/29/25 Range/Units 19:20 19:37 WBC 8.6 (4.5-11.0) X10^3/uL RBC 3.33 L (4.5-5.9) X10^6/uL Hgb 12.2 L (13.5-17.5) g/dL Hct 35.3 L (41-53) % MCV 105.8 H (80-100) fL MCH 36.4 H (26-34) PG MCHC 34.4 (30-36) % RDW 14.3 (11.6-14.8) % Plt Count 174 (150-400) X10^3/uL Neut % (Auto) 82.5 H (50-75) % Lymph % (Auto) 7.8 L (25-40) % Person % (Auto) 8.8 (3-14) % Eos % (Auto) 0.4 L (2-4) % Baso % (Auto) 0.5 (0-2) % Neut # (Auto) 7100 H (0814-8776) /uL Lymph # (Auto) 700 L (4307-2565) /uL Person # (Auto) 800 (0-900) /uL Eos # (Auto) 0 (0-450) /uL Baso # (Auto) 0 (0-100) /uL PT 14.9 H (9.4-12.5) SECONDS INR 1.3 (0.9-1.3) APTT 27 (25.1-36.5) SECONDS Sodium 138 (137-145) mmol/L Potassium 4.6 (3.4-5.1) mmol/L Chloride 107 (98-107) mmol/L Carbon Dioxide 20 L (22-32) mmol/L BUN 43 H (9-20) mg/dL Creatinine 1.58 H (0.66-1.25) mg/dL Estimated GFR 42 L (>60) mL/min BUN/Creatinine Ratio 27.2 H (6-22) Glucose 130 H (70-99) mg/dL Lactate 1.9 (0.7-2.1) mmol/L Calcium 9.5 (8.4-10.2) mg/dL Total Bilirubin 1.1 (0.2-1.3) mg/dL AST 28 (17-59) IU/L ALT 28 (<50) IU/L Alkaline Phosphatase 79 (38-126) U/L Total Protein 6.8 (6.3-8.2) g/dL Albumin 4.2 (3.5-5.0) g/dL Globulin 2.6 (1.7-4.1) g/dL Albumin/Globulin Ratio 1.6 (1.0-2.8) Lipase 114 (23-300) U/L Procalcitonin 0.163 (<0.5) ng/mL Urine Color Yellow Urine Appearance Clear Urine pH 5.5 (4.5-8.0) Ur Specific Crucible 1.010 (1.000-1.035) Urine Protein Negative (Negative) Urine Glucose (UA) 3+ H (Negative) g/dL Urine Ketones Negative (NEGATIVE) Urine Occult Blood Negative (Negative) Urine Nitrate Negative (Negative) Urine Bilirubin Negative (NEGATIVE) Urine Urobilinogen 0.2 (0.2) E.U./dL Ur Leukocyte Esterase Negative (NEGATIVE) Urine RBC 0-1/hpf (0-5/HPF) Urine WBC None seen (0-5/HPF) Ur Squamous Epith Cells 0-1 /hpf (0-5/HPF) Urine Bacteria None seen (None) Ur Culture Indicated? Cult not indicated Vol Urine Centrifuged 10ml (spun) SARS-CoV-2 (PCR) Negative (Negative) Influenza A (RT-PCR) Flu a negative (NEGATIVE) Influenza B (RT-PCR) Flu b negative (NEGATIVE) RSV (PCR) Negative (Negative) Imaging Data CT chest abdomen pelvis: Radiologist's Impression: [address] [address] [address] Scan Report Signed Patient: Adilson Negro I MR#: [id number] : 1935 Acct:[id number] Age/Sex: 89 / M Date of Service: 06/29/25 Loc: ED Accession Number: [id number] Procedure: CT chest abd pel wo con Ordering Provider: Arben Bragg MD PROCEDURE: CT CHEST ABD PEL WO CON INDICATIONS: fever unclear source TECHNIQUE: After the administration of oral contrast, 5 mm thick sections acquired from the lung apices to the symphysis pubis. 5 mm thick coronal and sagittal reformats acquired, with additional 7 mm coronal MIP reformats through the lungs. For radiation dose reduction, the following was used: automated exposure control, adjustment of mA and/or kV according to patient size. COMPARISON: [facility], CT, CT ABDOMEN RENAL PROTOCOL, 10/06/2024, 10:30. FINDINGS: Image quality: Diagnostic. CHEST: Lower Neck: No enlarged lymph nodes. Thyroid: Multiple bilateral thyroid nodules measuring up to 2 cm. Axillae: No enlarged lymph nodes. Chest Wall: Unremarkable. Bones: Unremarkable. Lungs and Pleura: Fibrotic changes bilaterally. Small right pleural effusion. Consolidative opacities with surrounding ground-glass in the right lower lobe. Prior left basilar opacity has mostly resolved. Interlobular septal thickening with areas of ground-glass may represent mild edema. Heart: Heart size is enlarged. Moderate coronary artery calcifications. Trace pericardial effusion. Thoracic Vessels: The aorta and pulmonary arteries demonstrate normal size. Atherosclerotic vascular calcifications. Mediastinum and Rose: No enlarged lymph nodes. Esophagus: No wall thickening. No hiatal hernia. ABDOMEN: Liver: No solid mass. Gallbladder: No radiopaque gallstones or wall thickening. Biliary ducts: No biliary dilation. Pancreas: No ductal dilation. Spleen: Size is within normal limits. Adrenal Glands: No adrenal nodules. Kidneys and Ureters: No hydronephrosis. Redemonstration of left renal cystic and solid lesions including a mass at the lower pole. Stomach and Bowel: Normal colonic caliber, without significant wall thickening. Diverticulosis without evidence of acute diverticulitis. Peritoneum: No abnormal intraperitoneal fluid. No free air. Ventral Wall: No hernia. Abdominal Nodes: No retroperitoneal or mesenteric adenopathy by size criteria. Vessels: Aorta and inferior vena cava are normal in size. Atherosclerotic vascular calcifications. PELVIS: Pelvic Organs: Unremarkable. Bladder: Unremarkable. Pelvic Nodes: No enlarged lymph nodes. Miscellaneous: Small bilateral fat containing inguinal hernias are seen. Bones: No aggressive osseous abnormality. Decreased osseous mineralization. Multilevel degenerative changes of the spine. IMPRESSION: No acute traumatic injury is identified within the chest, abdomen or pelvis. Redemonstration of indeterminate left renal lesion which is not well evaluated on this noncontrast exam, please refer to prior renal protocol CT. Recommend follow-up renal protocol CT to assess stability. Small right pleural effusion with adjacent opacities concerning for infection. Recommend follow-up CT chest in 3 months to ensure resolution and exclude underlying neoplastic process. Findings concerning for pulmonary edema. Please see above for additional incidental findings. Approved by: Timothy Roper M.D. on 06/29/2025 at 23:12 CT scan - head: Radiologist's Impression: [address] [address] [address] Scan Report Signed Patient: Adilson Negro I MR#: [id number] : 1935 Acct:[id number] Age/Sex: 89 / M Date of Service: 06/29/25 Loc: ED Accession Number: [id number] Procedure: CT head/brain wo con Ordering Provider: Arben Bragg MD PROCEDURE: CT HEAD/BRAIN WO CON INDICATIONS: fall, weakness, takes Eliquis TECHNIQUE: Noncontrast 4.5 mm thick angled axial sections acquired from the foramen magnum to the vertex, with coronal and sagittal reformats. For radiation dose reduction, the following was used: automated exposure control, adjustment of mA and/or kV according to patient size. COMPARISON: [facility], CT, CT HEAD/BRAIN WO CON, 07/28/2023, 19:25. FINDINGS: Image quality: Diagnostic. CSF spaces: Basal cisterns are patent. No extra-axial fluid collections. The ventricles are symmetric in size and shape. Brain: No intracranial bleeds or mass effect. There is cerebral volume loss, with resultant ventricular and sulcal prominence. There are periventricular and deep white matter chronic small vessel ischemic changes. There is intracranial internal carotid artery atherosclerosis. Skull and face: Calvarium and visualized facial bones appear intact, without suspicious lesions. Sinuses: Visualized sinuses and mastoids are clear. IMPRESSION: No acute intracranial pathology. Dictated by: Timothy Roper M.D. on 06/29/2025 at 23:00 Approved by: Timothy Roper M.D. on 06/29/2025 at 23:01 ECG Data Attestation: I personally reviewed and interpreted this ECG as follows: Interpretation: 1949, atrial fibrillation with rapid ventricular response, rate 101. Incomplete right bundle branch block pattern. QRS 92, QTC 464. MDM Narrative Medical decision making narrative: 89-year-old male with generalized weakness fell from chair attempting to get up of the table, low-grade fever noted, soft blood pressure, possible sepsis/infection. IV fluids initiated. Blood cultures requested. Chest x-ray, EKG, serum studies, urinalysis, COVID swab pending. EKG shows atrial fibrillation with rate 101, history of known atrial fibrillation. Lab data: White blood cell count 8600, hemoglobin 12.2, platelets adequate. Glucose 130. BUN 43 with creatinine 1.58. Serum CO2 20. Potassium and sodium levels normal. Liver functions and lipase normal. Urinalysis negative. COVID influenza RSV swab negative. Lactate and procalcitonin not elevated. Blood cultures requested. Chest x-ray shows interstitial changes, stable from prior. See radiology report. Unclear source of fever. Renal insufficiency mild. CT chest abdomen and pelvis, daughter at bedside agreeable for further search for cause of fever. Patient takes Eliquis, had fall, no obvious head trauma, diffuse weakness, CT head noncontrast also ordered. No neck pain. CT suspicious for pulmonary infiltrates. No acute abdominal process. See radiology report. Blood cultures. IV ceftriaxone and oral doxycycline. Patient has received 2 L of oxygen, blood pressure 98/60, similar blood pressures in the past, history of CHF, we will hold on further fluid boluses. Consider admission. 0300, PCP Sathya. Case discussed with cross cover physician Dr. Ramesh who accepts patient for admission. Critical Care Time Critical Care Time Critical Care Time: Yes Total Critical Care Time: 35 Attestation: The high probability of a clinically significant, sudden or life threatening deterioration of the [cardiopulmonary] system(s) required my full and direct attention, intervention and personal management. The aggregate critical care time was [35] minutes. This time is in addition to time spent performing reported procedures but includes the following: [x] Data Review and interpretation [x] Patient assessment and monitoring of vital signs [x] Documentation [x] Medication orders and management Discharge Plan Departure Patient Disposition: Admitted As Inpatient Clinical Impression: Pneumonia, Generalized weakness, History of COPD, History of heart failure Admit Date/Time: 06/30/25 03:03 Admit Provider: Yoli Ramesh
--- NOTE | 2025-06-29 22:19 | DI.CT.S_ITS ---
PROCEDURE: CT CHEST ABD PEL WO CON INDICATIONS: fever unclear source TECHNIQUE: After the administration of oral contrast, 5 mm thick sections acquired from the lung apices to the symphysis pubis. 5 mm thick coronal and sagittal reformats acquired, with additional 7 mm coronal MIP reformats through the lungs. For radiation dose reduction, the following was used: automated exposure control, adjustment of mA and/or kV according to patient size. COMPARISON: [facility], CT, CT ABDOMEN RENAL PROTOCOL, 10/06/2024, 10:30. FINDINGS: Image quality: Diagnostic. CHEST: Lower Neck: No enlarged lymph nodes. Thyroid: Multiple bilateral thyroid nodules measuring up to 2 cm. Axillae: No enlarged lymph nodes. Chest Wall: Unremarkable. Bones: Unremarkable. Lungs and Pleura: Fibrotic changes bilaterally. Small right pleural effusion. Consolidative opacities with surrounding ground-glass in the right lower lobe. Prior left basilar opacity has mostly resolved. Interlobular septal thickening with areas of ground-glass may represent mild edema. Heart: Heart size is enlarged. Moderate coronary artery calcifications. Trace pericardial effusion. Thoracic Vessels: The aorta and pulmonary arteries demonstrate normal size. Atherosclerotic vascular calcifications. Mediastinum and Rose: No enlarged lymph nodes. Esophagus: No wall thickening. No hiatal hernia. ABDOMEN: Liver: No solid mass. Gallbladder: No radiopaque gallstones or wall thickening. Biliary ducts: No biliary dilation. Pancreas: No ductal dilation. Spleen: Size is within normal limits. Adrenal Glands: No adrenal nodules. Kidneys and Ureters: No hydronephrosis. Redemonstration of left renal cystic and solid lesions including a mass at the lower pole. Stomach and Bowel: Normal colonic caliber, without significant wall thickening. Diverticulosis without evidence of acute diverticulitis. Peritoneum: No abnormal intraperitoneal fluid. No free air. Ventral Wall: No hernia. Abdominal Nodes: No retroperitoneal or mesenteric adenopathy by size criteria. Vessels: Aorta and inferior vena cava are normal in size. Atherosclerotic vascular calcifications. PELVIS: Pelvic Organs: Unremarkable. Bladder: Unremarkable. Pelvic Nodes: No enlarged lymph nodes. Miscellaneous: Small bilateral fat containing inguinal hernias are seen. Bones: No aggressive osseous abnormality. Decreased osseous mineralization. Multilevel degenerative changes of the spine. IMPRESSION: No acute traumatic injury is identified within the chest, abdomen or pelvis. Redemonstration of indeterminate left renal lesion which is not well evaluated on this noncontrast exam, please refer to prior renal protocol CT. Recommend follow-up renal protocol CT to assess stability. Small right pleural effusion with adjacent opacities concerning for infection. Recommend follow-up CT chest in 3 months to ensure resolution and exclude underlying neoplastic process. Findings concerning for pulmonary edema. Please see above for additional incidental findings. Approved by: Timothy Roper M.D. on 06/29/2025 at 23:12
--- NOTE | 2025-06-29 22:21 | DI.CT.S_ITS ---
PROCEDURE: CT HEAD/BRAIN WO CON INDICATIONS: fall, weakness, takes Eliquis TECHNIQUE: Noncontrast 4.5 mm thick angled axial sections acquired from the foramen magnum to the vertex, with coronal and sagittal reformats. For radiation dose reduction, the following was used: automated exposure control, adjustment of mA and/or kV according to patient size. COMPARISON: [facility], CT, CT HEAD/BRAIN WO CON, 07/28/2023, 19:25. FINDINGS: Image quality: Diagnostic. CSF spaces: Basal cisterns are patent. No extra-axial fluid collections. The ventricles are symmetric in size and shape. Brain: No intracranial bleeds or mass effect. There is cerebral volume loss, with resultant ventricular and sulcal prominence. There are periventricular and deep white matter chronic small vessel ischemic changes. There is intracranial internal carotid artery atherosclerosis. Skull and face: Calvarium and visualized facial bones appear intact, without suspicious lesions. Sinuses: Visualized sinuses and mastoids are clear. IMPRESSION: No acute intracranial pathology. Dictated by: Timothy Roper M.D. on 06/29/2025 at 23:00 Approved by: Timothy Roper M.D. on 06/29/2025 at 23:01
[2025-06-30] VITALS (60 sets, daily range): BP systolic 81–129; BP diastolic 51–64; PULSE 82–153; RESP 17–41; TEMP 36.4–36.8; O2SAT 90–99; BMI 24.9
[2025-06-30] MEDS: DOXYCYCLINE HYCLATE 100 MG TABLET PO (00:46)
--- NOTE | 2025-06-30 01:11 | PC.NURSE ---
Pt started with a dry cough. Lungs ausculated and wheezes throughout. band nailer and RT notified. RT evaluated. SPO2 unchanged on 1LNC.
[2025-06-30] MEDS: ALBUTEROL/IPRATROPIUM 3 ML AMPUL INH (01:12)
[2025-06-30 05:59] LABS: MRSA (Nasal) PCR NOT DETECTED (Not Detect)
--- NOTE | 2025-06-30 08:43 | PM.HP.IH.1 ---
History of Present Illness History of Present Illness Date Patient Seen: 06/30/25 Time Patient Seen: 08:43 Chief complaint: GLF, weakness, fever Narrative: 89-year-old male with a past medical history congestive heart failure with reduced ejection fraction chronic atrial fibrillation chronic lung disease with pulmonary fibrosis hemochromatosis hypertension hyperlipidemia patient lives with his on [facility]. He is noticed some increasing weakness. He has a little bit forgetful as far as his history goes. Says he was working out in the garden yesterday. Had hard time going from a sitting to a standing position. His had to come out with a golf cart and helped him get up. Last evening. Patient was at the dinner table he felt weak. He slumped in his chair and fell out of his chair while trying to get up from the table. That point the ambulance was called and he was brought into the emergency department. Currently patient states he feels good. He is weak. He has no energy. Not complaining of chest pain cough he has a chronic cough. He is short of breath and has some chronic wheezing. He says he is hungry. No abdominal pain. No recent problems with urination or bowel movements. Patient had an evaluation in the emergency department. Patient had normal white blood cell count. Patient has chronic anemia. Patient has some chronic kidney disease which is stable. Patient had normal electrolytes liver function. Patient had a chest x-ray which showed chronic lung disease. Patient ultimately had a CT scan of his chest abdomen and pelvis. His CT scan shows pulmonary fibrosis with pleural effusion and consolidation consistent with pneumonia. Patient underwent a CT scan of his head because of fall and being on anticoagulation. CT of head is normal. Patient's procalcitonin is normal. Patient had an echocardiogram approximately 9 months ago which showed congestive heart failure with reduced ejection fraction. Due to patient's weakness fever tachycardia and pneumonia who was admitted to the hospital for further treatment. [facility] Medical History Acute systolic (congestive) heart failure Incomplete emptying of bladder Angiomyolipoma Nodule of skin of chest Renal cyst Lesion of left creek kidney URI (upper respiratory infection) COPD exacerbation Basal cell carcinoma (BCC) of right cheek (09/04/16) Colon polyps (06/30/11) Eczema Asthma Hayfever Foot pain (06/2016) Ankle pain (06/2016) Cataract (12/2015) Surgical History History of basal cell carcinoma (BCC) excision (09/04/16) History of phacoemulsification of cataract of left eye with intraocular lens implantation (05/02/16) History of phacoemulsification of cataract of right eye with intraocular lens implantation (04/18/16) History of colonoscopy with polypectomy (06/30/11) Family History Father Cancer Diabetes mellitus Hypertension Mother Cancer High cholesterol Grandfather No problems noted. Grandmother No problems noted. Grandfather No problems noted. Grandmother No problems noted. Social History marital status: household members: spouse and none lives independently: Yes occupational status: previously employed Smoking Status: Never smoker alcohol intake: current substance use type: does not use Meds Home Medications and Allergies Home Medications ?Medication ?Instructions ?Recorded ?Confirmed ?Type montelukast 10 mg tablet 10 mg PO BEDTIME 03/03/21 12/18/24 History atorvastatin 20 mg tablet (Lipitor) 20 mg PO HS #90 tabs 04/15/21 12/18/24 Rx nitroglycerin 0.4 mg sublingual 0.4 mg sublingual Q5-15M PRN Chest 07/26/21 12/18/24 History tablet Pain spironolactone 25 mg tablet 25 mg PO DAILY 07/26/21 12/18/24 History apixaban 5 mg tablet 5 mg PO BID #180 tabs 12/06/23 12/18/24 Rx metoprolol succinate 50 mg 100 mg (2 x 50 mg) PO BID #360 tabs 12/24/23 12/18/24 Rx tablet,extended release 24 hr albuterol sulfate 1.25 mg/3 mL 1.25 mg (3 mL) inhalation Q4-6H 06/10/24 12/18/24 Rx solution for nebulization PRN for wheezing #75 mL torsemide 10 mg tablet 10 mg PO BID 07/11/24 12/18/24 History fluticasone 250 mcg-salmeterol 50 1 inh inhalation BID #180 ea 08/04/24 12/18/24 Rx mcg/dose blistr powdr for inhalation (Wixela Inhub) tamsulosin 0.4 mg capsule (Flomax) 0.8 mg (2 x 0.4 mg) PO DAILY #180 12/17/24 12/18/24 Rx caps empagliflozin 10 mg tablet mg PO DAILY 12/18/24 12/18/24 History (Jardiance) losartan 25 mg tablet mg PO DAILY 12/18/24 12/18/24 History vitamins A,C,A-pedo-ihnzhe 4,296 1 cap PO .qd 12/18/24 12/18/24 History mcg-226 mg-90 mg capsule (PreserVision AREDS) albuterol sulfate 90 mcg/actuation 2 puff PO Q4H PRN for wheezing 01/20/25 Rx aerosol inhaler #6.7 grams albuterol sulfate 90 mcg/actuation 2 puff PO Q6H PRN for wheezing 02/02/25 Rx aerosol inhaler #6.7 grams tiotropium bromide 18 mcg capsule 1 cap inhalation DAILY #60 caps 03/23/25 Rx with inhalation device (Spiriva with HandiHaler) Allergies Allergy/AdvReac Type Severity Reaction Status Date / Time venom-honey bee (BEE VENOM Allergy Severe severe Verified 12/18/24 14:04 (HONEY BEE)) edema Exam Vital Signs (past 8 hours): - 06/30/25 01:00 06/30/25 01:00 06/30/25 01:13 Temperature Pulse Rate 86 89 Respiratory Rate 18 Blood Pressure 96/51 L Pulse Oximetry 94 97 Oxygen Delivery Method Nasal Cannula Oxygen Flow Rate 2 Fraction of Inspired Oxygen 06/30/25 01:30 06/30/25 01:31 06/30/25 01:31 Temperature Pulse Rate 87 84 Respiratory Rate Blood Pressure 112/55 L Pulse Oximetry 95 93 Oxygen Delivery Method Oxygen Flow Rate Fraction of Inspired Oxygen 06/30/25 02:00 06/30/25 02:01 06/30/25 02:01 Temperature Pulse Rate 87 87 Respiratory Rate Blood Pressure 81/54 L Pulse Oximetry 91 90 L Oxygen Delivery Method Oxygen Flow Rate Fraction of Inspired Oxygen 06/30/25 02:03 06/30/25 02:03 06/30/25 02:15 Temperature Pulse Rate 85 Respiratory Rate Blood Pressure 86/57 L 98/60 Pulse Oximetry 90 L Oxygen Delivery Method Room Air Oxygen Flow Rate Fraction of Inspired Oxygen 06/30/25 02:30 06/30/25 02:30 06/30/25 03:00 Temperature Pulse Rate 85 Respiratory Rate Blood Pressure 90/57 L 102/54 L Pulse Oximetry 94 Oxygen Delivery Method Oxygen Flow Rate Fraction of Inspired Oxygen 06/30/25 03:00 06/30/25 03:30 06/30/25 03:30 Temperature Pulse Rate 83 87 Respiratory Rate 21 Blood Pressure 92/54 L Pulse Oximetry 95 96 Oxygen Delivery Method Nasal Cannula Oxygen Flow Rate 1 Fraction of Inspired Oxygen 06/30/25 04:00 06/30/25 04:00 06/30/25 04:15 Temperature 97.5 F L Pulse Rate 82 86 Respiratory Rate 17 21 Blood Pressure 95/55 L 100/59 L Pulse Oximetry 98 96 Oxygen Delivery Method Room Air Oxygen Flow Rate Fraction of Inspired Oxygen 06/30/25 05:00 Temperature Pulse Rate Respiratory Rate Blood Pressure Pulse Oximetry Oxygen Delivery Method Nasal Cannula Oxygen Flow Rate Fraction of Inspired Oxygen Fraction of Inspired Oxygen 28 SaO2/FiO2 Ratio 342 Oxygen Delivery Method Nasal Cannula Oxygen Flow Rate 1 Narrative Exam Narrative: Gen.: Alert forgetful poor historian HEENT: Pupils equal round and reactive or mucosa is moist neck is supple no lymphadenopathy Cardio: Patient has a systolic murmur S1-S2 and irregular heart rhythm Respiratory: Patient has some expiratory wheezes and decreased breath sound and mild increased work of breathing Abdomen: Soft nontender no rebound or guarding no liver spleen enlargement no appreciable hernias Extremities: No significant lower extremity edema. Neurologic: Generalized weakness Objective Labs 06/29/25 19:20 06/29/25 19:20 Labs: Laboratory Results - last 24 hr 06/29/25 06/29/25 06/30/25 19:20 19:37 04:40 WBC 8.6 RBC 3.33 L Hgb 12.2 L Hct 35.3 L MCV 105.8 H MCH 36.4 H MCHC 34.4 RDW 14.3 Plt Count 174 Neut % (Auto) 82.5 H Lymph % (Auto) 7.8 L [place] % (Auto) 8.8 Eos % (Auto) 0.4 L Baso % (Auto) 0.5 Neut # (Auto) 7100 H Lymph # (Auto) 700 L [place] # (Auto) 800 Eos # (Auto) 0 Baso # (Auto) 0 PT 14.9 H INR 1.3 APTT 27 Sodium 138 Potassium 4.6 Chloride 107 Carbon Dioxide 20 L BUN 43 H Creatinine 1.58 H Estimated GFR 42 L BUN/Creatinine Ratio 27.2 H Glucose 130 H Lactate 1.9 Calcium 9.5 Total Bilirubin 1.1 AST 28 ALT 28 Alkaline Phosphatase 79 Total Protein 6.8 Albumin 4.2 Globulin 2.6 Albumin/Globulin Ratio 1.6 Lipase 114 Procalcitonin 0.163 Urine Color Yellow Urine Appearance Clear Urine pH 5.5 Ur Specific [place] 1.010 Urine Protein Negative Urine Glucose (UA) 3+ H Urine Ketones Negative Urine Occult Blood Negative Urine Nitrate Negative Urine Bilirubin Negative Urine Urobilinogen 0.2 Ur Leukocyte Esterase Negative Urine RBC 0-1/hpf Urine WBC None seen Ur Squamous Epith Cells 0-1 /hpf Urine Bacteria None seen Ur Culture Indicated? Cult not indicated Vol Urine Centrifuged 10ml (spun) Nasal Screen MRSA (PCR) Not detected SARS-CoV-2 (PCR) Negative Influenza A (RT-PCR) Flu a negative Influenza B (RT-PCR) Flu b negative RSV (PCR) Negative Assessment & Plan Assessment and plan (1) Community acquired pneumonia: Qualifiers: Laterality: right Lung location: lower lobe of lung Qualified Code(s): J18.9 - Pneumonia, unspecified organism Status: Acute Plan Community-acquired pneumonia patient with the CT scan showing right lower lobe pneumonia. Patient has not been recently hospitalized. Be admitted for pneumonia fever tachycardia. Patient will be on oxygen if needed to keep saturations greater than 90%. Patient has a history of pulmonary fibrosis chronic lung disease as well as small pleural effusion on the right side. Patient will have nebulizers per protocol. Oxygen as needed to maintain saturations. Will place him on ceftriaxone 1 g IV 24 hours as well as doxycycline 100 mg q.12 hours. Will be will monitor temperature blood pressure. Acute systolic congestive heart failure. Patient with known history of congestive heart failure with reduced ejection fraction. Patient has a pleural effusion partly due to moan pneumonia partly due to heart failure. Add a BNP on to lab. We will hold off on ordering additional echocardiograms as I reviewed his previous. Patient will be continued on spironolactone by Jardiance beta-amena and losartan if blood pressure is tolerated this. We will provide a little bit of Lasix due to his pleural effusion 40 mg. We will be gentle with IV fluid hydration. Atrial fibrillation with rapid ventricular response. Patient has not chronic atrial fibrillation due to his fever and pneumonia he is tachycardic. Patient will be restarted on his beta-amena. Patient is anticoagulated with Eliquis his Eliquis will be continued at this time. Monitor closely his hemoglobin hematocrit. COPD chronic lung disease with pulmonary fibrosis. Patient is on multiple inhalers including Wixela ipratropium and albuterol. He is inhalers will be continued during this hospital stay and RT will come in and do an evaluation and treatment. Chronic kidney disease. Patient with chronic kidney disease stage IIIC. His creatinine is mildly elevated at this time. I presume this elevation is due to pneumonia infection and possibly mild dehydration. We will continue to monitor his kidney function. In support with IV fluids. Hypertension. Patient has history of hypertension he is mildly hypotensive. Will hold some of his antihypertensive medications at this time but will continue on his beta-amena because of his tachycardia and atrial fibrillation. Hyperlipidemia. Chronic and stable Hemochromatosis chronic and stable Anemia of chronic disease hemoglobin hematocrit mildly low no requirements for transfusion at this time monitor. DVT prophylaxis patient is on chronic Eliquis Disposition and plan. Anticipate hospitalization greater than 2 midnights meeting criteria for inpatient status. grout worker evaluation will be required. Anticipate discharge home with home health in 2 days. Time-Based Coding :: [TOTAL MINUTES] spent with patient and on the chart (including review of chart, obtaining history, exam, reviewing outside data, placing orders, documenting exam and treatment plan, and counseling patient) on [DATE]. Quality VTE Deep Vein Thrombosis/Pulmonary Embolism Present on Admission: No PROFEE Rough Patcher Document charge(s): Yes Charge Codes Initial inpatient/observation care: 13297
[2025-06-30] MEDS: ALBUTEROL 2.5 MG/3 ML NEB (ADULT) INH ×3 (09:14→19:16)
[2025-06-30 09:25] LABS: NT-proBNP (BNP-Adult 18+) 6220 pg/mL (<450)
[2025-06-30] MEDS: AMIODARONE 200 MG TABLET 100 MG PO (09:51)
[2025-06-30] MEDS: APIXABAN 5 MG TABLET PO ×2 (09:52→20:56)
[2025-06-30] MEDS: METOPROLOL ER 50 MG TABLET PO (09:52)
[2025-06-30] MEDS: SPIRONOLACTONE 25 MG TABLET PO (09:52)
[2025-06-30] MEDS: SODIUM CHLORIDE 0.9% FLUSH 10 ML IV ×2 (09:52→21:20)
[2025-06-30] MEDS: FUROSEMIDE 40 MG/4 ML VIAL IV (09:52)
[2025-06-30] MEDS: DOXYCYCLINE 100 MG in SODIUM CHLORIDE 0.9% 100 ML IV ×2 (12:19→21:45)
[2025-06-30] MEDS: SODIUM CHLORIDE 0.9% 250 ML 21 ML IV (12:28)
[2025-06-30] MEDS: BUDESONIDE 0.5 MG/2 ML NEB INH (19:16)
[2025-06-30] MEDS: SENNOSIDES 8.6 MG TABLET 17.2 MG PO (20:56)
[2025-06-30] MEDS: ATORVASTATIN 20 MG TABLET PO (20:56)
[2025-06-30] MEDS: TAMSULOSIN 0.4 MG CAPSULE 0.8 MG PO (20:56)
[2025-07-01] VITALS (15 sets, daily range): BP systolic 98–115; BP diastolic 54–62; PULSE 95–106; RESP 16–20; TEMP 37.1; O2SAT 83–98
--- NOTE | 2025-07-01 02:11 | PC.NURSE ---
Patient is non compliant with calling for assistance touse the toilet, gets out of bed without calling for help, refused quality assurance monitor body, pulled out PIV, hospitalist on duty updated.
[2025-07-01] MEDS: ALBUTEROL 2.5 MG/3 ML NEB (ADULT) INH ×4 (08:09→19:00)
[2025-07-01] MEDS: BUDESONIDE 0.5 MG/2 ML NEB INH ×2 (08:09→19:00)
[2025-07-01 08:16] LABS: Add Manual Diff / Slide Review NO; Hematocrit 31.3 % (41-53); Hemoglobin 10.8 g/dL (13.5-17.5); Lymphocytes Absolute Auto 800 /uL (1100-4500); Mean Corpuscular HGB Conc 34.7 % (30-36); Mean Corpuscular Hemoglobin 36.9 PG (26-34); Mean Corpuscular Volume 106.4 fL (80-100); Platelet Count 136 X10^3/uL (150-400)
[2025-07-01 08:32] LABS: Alanine Aminotransferase 20 IU/L (<50); Albumin 3.4 g/dL (3.5-5.0); Albumin Globulin Ratio 1.5 (1.0-2.8); Alkaline Phosphatase 68 U/L (38-126); Blood Urea Nitrogen 27 mg/dL (9-20); Calcium 8.9 mg/dL (8.4-10.2); Carbon Dioxide 22 mmol/L (22-32); Chloride 109 mmol/L (98-107); Estimated Glomerular Filt Rate 55 mL/min (>60); Globulin 2.2 g/dL (1.7-4.1); Glucose 91 mg/dL (70-99); HEMOLYSIS 16 (0-50); Potassium 4.1 mmol/L (3.4-5.1); Sodium 139 mmol/L (137-145); Total Protein 5.6 g/dL (6.3-8.2)
[2025-07-01] MEDS: METOPROLOL ER 50 MG TABLET PO ×2 (09:04→20:50)
[2025-07-01] MEDS: AMIODARONE 200 MG TABLET 100 MG PO (09:04)
[2025-07-01] MEDS: SPIRONOLACTONE 25 MG TABLET PO (09:04)
[2025-07-01] MEDS: APIXABAN 5 MG TABLET PO ×2 (09:04→20:51)
--- NOTE | 2025-07-01 10:39 | PM.PN.IH.1 ---
Subjective Subjective Date Patient Seen: 07/01/25 Time Patient Seen: 09:30 Interval history: Patient seen and evaluated this morning discuss care with the nurse. Patient had some confusion and delirium overnight. Patient removed monitor as well as IV. Patient stated he wanted to go home. Obviously confusion. Patient has some baseline mild cognitive decline. Patient is more oriented this morning recognizes me knows he is at [facility]. He has a little confused on how long he has been in the hospital. Was stating that he wants to go home but he has having a hard time with his breathing. Patient has obvious signs of increased work of breathing. Patient did eat breakfast this morning had coffee. He is urinating well. Patient is ambulating good. His vital signs show continued mild hypotension. Has some mild tachycardia. He has not currently requiring oxygen. Exam Vital Signs (past 8 hours): - 07/01/25 07:00 07/01/25 08:00 07/01/25 08:10 Pulse Rate 95 H Respiratory Rate 18 16 Blood Pressure 98/54 L Pulse Oximetry 96 96 Oxygen Delivery Method Room Air Room Air 07/01/25 09:04 Pulse Rate 95 H Respiratory Rate Blood Pressure Pulse Oximetry Oxygen Delivery Method Fraction of Inspired Oxygen 21 SaO2/FiO2 Ratio 471 Oxygen Delivery Method Room Air Oxygen Flow Rate 0 Narrative Exam Narrative: Gen.: Patient is alert. Knows he is at the hospital confused of date time. HEENT: Pupils equal round and reactive or mucosa is moist Cardio: S1-S2 irregular rate and rhythm Respiratory: Mild increased work of breathing with some expiratory wheezes. Abdomen: Soft nontender no rebound or guarding Extremities: full range of motion no edema Objective Labs 07/01/25 07:54 07/01/25 07:54 Labs: Laboratory Results - last 24 hr 07/01/25 07:54 WBC 5.2 RBC 2.94 L Hgb 10.8 L Hct 31.3 L MCV 106.4 H MCH 36.9 H MCHC 34.7 RDW 14.4 Plt Count 136 L Neut % (Auto) 71.7 Lymph % (Auto) 14.4 L [place] % (Auto) 11.4 Eos % (Auto) 1.6 L Baso % (Auto) 0.9 Neut # (Auto) 3700 Lymph # (Auto) 800 L [place] # (Auto) 600 Eos # (Auto) 100 Baso # (Auto) 0 Sodium 139 Potassium 4.1 Chloride 109 H Carbon Dioxide 22 BUN 27 H Creatinine 1.26 H Estimated GFR 55 L BUN/Creatinine Ratio 21.4 Glucose 91 Calcium 8.9 Total Bilirubin 1.0 AST 24 ALT 20 Alkaline Phosphatase 68 Total Protein 5.6 L Albumin 3.4 L Globulin 2.2 Albumin/Globulin Ratio 1.5 [facility] Medical History Acute systolic (congestive) heart failure Incomplete emptying of bladder Angiomyolipoma Nodule of skin of chest Renal cyst Lesion of left [place] kidney URI (upper respiratory infection) COPD exacerbation Basal cell carcinoma (BCC) of right cheek (09/04/16) Colon polyps (06/30/11) Eczema Asthma Hayfever Foot pain (06/2016) Ankle pain (06/2016) Cataract (12/2015) Surgical History History of basal cell carcinoma (BCC) excision (09/04/16) History of phacoemulsification of cataract of left eye with intraocular lens implantation (05/02/16) History of phacoemulsification of cataract of right eye with intraocular lens implantation (04/18/16) History of colonoscopy with polypectomy (06/30/11) Family History Father Cancer Diabetes mellitus Hypertension Mother Cancer High cholesterol Grandfather No problems noted. Grandmother No problems noted. Grandfather No problems noted. Grandmother No problems noted. Social History marital status: household members: spouse and none lives independently: Yes occupational status: previously employed Smoking Status: Never smoker alcohol intake: current substance use type: does not use Assessment & Plan Assessment and plan (1) Community acquired pneumonia: Qualifiers: Laterality: right Lung location: lower lobe of lung Qualified Code(s): J18.9 - Pneumonia, unspecified organism Status: Acute Plan Community-acquired pneumonia patient with the CT scan showing right lower lobe pneumonia. Patient on ceftriaxone doxycycline. No fever since emergency room visit. Not on oxygen. Patient still has wheezing. Patient on nebulizers per protocol. Still some mild increased work of breathing. White blood cell count is normal. Blood cultures are negative to this point. Acute metabolic encephalopathy. Patient with the delirium last evening. Reoriented well today. Patient has some mild cognitive decline at baseline. Certainly worse last evening where he removed monitor and IV. Recommendation for reorienting patient. Patient needs further IV antibiotics due to his underlying infection and respiratory distress. We will have family members hopefully available this evening to be with him to reorient him. Acute systolic congestive heart failure. Patient with systolic congestive heart failure with acute exacerbation with elevation of BNP pleural effusion and mild increased fluid on CT scan. Patient on spironolactone was given Lasix yesterday. We will hold off on further diuresis due to his low blood pressure. Not taking a lot of p.o. intake. Previous echocardiogram showed reduced ejection fraction. Will continue with his beta-amena angiotensin receptor blockers spironolactone and Jardiance. Atrial fibrillation with rapid ventricular response. Heart rate still mildly tachycardic. He is mildly hypotensive continue with beta-amena amiodarone. Continue with chronic anticoagulation COPD chronic lung disease with pulmonary fibrosis. Patient getting nebulizers antibiotics. In the past steroids have not been significantly helpful. Will hold off on initiating those at this point. Chronic kidney disease. Patient with chronic kidney disease stage IIIC. Kidney function is improved over yesterday electrolytes are normal. Hypotension. Patient with a history of hypertension. Making adjustments to his blood pressure medication to avoid further hypotension. Hyperlipidemia. Chronic and stable Hemochromatosis chronic and stable Anemia of chronic disease DVT prophylaxis patient is on chronic Eliquis Disposition and plan. Twenty-four more hours of IV antibiotics and nebulizers for respiratory distress. Hopefully home tomorrow with oral antibiotics. Will need a nursing home home support if possible at discharge. Time-Based Coding :: [TOTAL MINUTES] spent with patient and on the chart (including review of chart, obtaining history, exam, reviewing outside data, placing orders, documenting exam and treatment plan, and counseling patient) on [DATE]. Quality VTE Deep Vein Thrombosis/Pulmonary Embolism Present on Admission: No PROFEE [employer] Document charge(s): No Charge Codes Subsequent inpatient/observation care: [id number]
[2025-07-01] MEDS: DOXYCYCLINE 100 MG in SODIUM CHLORIDE 0.9% 100 ML IV ×2 (11:49→22:00)
[2025-07-01] MEDS: SODIUM CHLORIDE 0.9% FLUSH 10 ML IV (12:51)
[2025-07-01] MEDS: TAMSULOSIN 0.4 MG CAPSULE 0.8 MG PO (20:51)
[2025-07-01] MEDS: ATORVASTATIN 20 MG TABLET PO (20:51)
[2025-07-01] MEDS: SENNOSIDES 8.6 MG TABLET 17.2 MG PO (20:51)
--- NOTE | 2025-07-02 07:56 | P.DS_ITS ---
History of Present Illness History of Present Illness Chief complaint: GLF, weakness, fever Narrative: 89-year-old male with a past medical history congestive heart failure with reduced ejection fraction chronic atrial fibrillation chronic lung disease with pulmonary fibrosis hemochromatosis hypertension hyperlipidemia patient lives with his on [facility]. He is noticed some increasing weakness. He has a little bit forgetful as far as his history goes. Says he was working out in the garden yesterday. Had hard time going from a sitting to a standing position. His had to come out with a golf cart and helped him get up. Last evening. Patient was at the dinner table he felt weak. He slumped in his chair and fell out of his chair while trying to get up from the table. That point the ambulance was called and he was brought into the emergency department. Currently patient states he feels good. He is weak. He has no energy. Not complaining of chest pain cough he has a chronic cough. He is short of breath and has some chronic wheezing. He says he is hungry. No abdominal pain. No recent problems with urination or bowel movements. Patient had an evaluation in the emergency department. Patient had normal white blood cell count. Patient has chronic anemia. Patient has some chronic kidney disease which is stable. Patient had normal electrolytes liver function. Patient had a chest x-ray which showed chronic lung disease. Patient ultimately had a CT scan of his chest abdomen and pelvis. His CT scan shows pulmonary fibrosis with pleural effusion and consolidation consistent with pneumonia. Patient underwent a CT scan of his head because of fall and being on anticoagulation. CT of head is normal. Patient's procalcitonin is normal. Patient had an echocardiogram approximately 9 months ago which showed congestive heart failure with reduced ejection fraction. Due to patient's weakness fever tachycardia and pneumonia who was admitted to the hospital for further treatment. Discharge Providers Provider Date of admission: 06/30/25 03:03 Discharge Date: 07/02/25 Primary care physician: Zurdo Mcdonnell MD Discharge provider: Zurdo Mcdonnell MD Summary Hospital Course Discharge Diagnosis: Communicate acquired pneumonia treating with ceftriaxone and doxycycline to cover Gram-negative Gram-positive and atypicals Acute metabolic encephalopathy with confusion Acute systolic congestive heart failure Atrial fibrillation with rapid ventricular response Chronic lung disease with pulmonary fibrosis Chronic kidney disease stage IIIc Hypotension Hyperlipidemia Hemochromatosis Anemia of chronic disease Hospital Course: Community-acquired pneumonia patient with the CT scan showing right lower lobe pneumonia. Patient on ceftriaxone doxycycline. Patient had 48 hours of IV antibiotics. With stabilization of temperature blood pressure not requiring oxygen. Patient had nebulizers per protocol and respiratory therapy treatments. Acute metabolic encephalopathy. Patient with the delirium last evening. Patient has some baseline cognitive challenges. Had a significant night of confusion disorientation. Was better the next night with family member who stayed with them. Patient was at baseline mental status at the time of discharge with family.. Acute systolic congestive heart failure. Patient with known systolic heart failure. Patient with previous echocardiogram which showed decreased ejection fraction was not repeated during the hospital stay BNP was elevated. Patient had some signs of edema on CT scan. Patient was continued on beta-amena angiotensin receptor amena spironolactone Jardiance. Atrial fibrillation with rapid ventricular response. Patient was mildly tachycardic and hypotensive. Patient was started on beta-amena at a little lower dose and he takes typically at home his pulse rate was in the mid 90s to 100s. COPD chronic lung disease with pulmonary fibrosis. Nebulizer treatments. Chronic kidney disease. Patient with chronic kidney disease stage IIIC. Head function stable during the hospital stay. Hypotension. Patient's blood pressure improved with treatment of underlying infections. And mild adjustment of his antihypertensive medication. Hyperlipidemia. Chronic and stable Hemochromatosis chronic and stable Anemia of chronic disease Exam Vital Signs (past 8 hours): Fraction of Inspired Oxygen 21 SaO2/FiO2 Ratio 471 Oxygen Delivery Method Room Air Oxygen Flow Rate 0 Narrative Exam Narrative: Gen.: Alert and oriented x3 no apparent distress. HEENT: NCAT PERRLA tympanic membranes are clear nares are patent oral mucosa is moist no tonsillar hypertrophy neck is supple without lymphadenopathy no thyroid enlargement. Cardio: S1-S2 regular rate and rhythm no murmurs appreciated. Respiratory: Lungs are clear to auscultation no wheezes or crackles normal respiratory effort. Abdomen: Soft nontender no rebound or guarding no liver spleen enlargement no appreciable hernias Extremities: Full range of motion no appreciable weakness no cyanosis or edema. Neurologic: Grossly intact. Objective Labs 07/01/25 07:54 07/01/25 07:54 Labs: Laboratory Results - last 24 hr 07/01/25 07:54 WBC 5.2 RBC 2.94 L Hgb 10.8 L Hct 31.3 L MCV 106.4 H MCH 36.9 H MCHC 34.7 RDW 14.4 Plt Count 136 L Neut % (Auto) 71.7 Lymph % (Auto) 14.4 L Ramsey % (Auto) 11.4 Eos % (Auto) 1.6 L Baso % (Auto) 0.9 Neut # (Auto) 3700 Lymph # (Auto) 800 L Ramsey # (Auto) 600 Eos # (Auto) 100 Baso # (Auto) 0 Sodium 139 Potassium 4.1 Chloride 109 H Carbon Dioxide 22 BUN 27 H Creatinine 1.26 H Estimated GFR 55 L BUN/Creatinine Ratio 21.4 Glucose 91 Calcium 8.9 Total Bilirubin 1.0 AST 24 ALT 20 Alkaline Phosphatase 68 Total Protein 5.6 L Albumin 3.4 L Globulin 2.2 Albumin/Globulin Ratio 1.5 PFSH Medical History Acute systolic (congestive) heart failure Incomplete emptying of bladder Angiomyolipoma Nodule of skin of chest Renal cyst Lesion of left [place] kidney URI (upper respiratory infection) COPD exacerbation Basal cell carcinoma (BCC) of right cheek (09/04/16) Colon polyps (06/30/11) Eczema Asthma Hayfever Foot pain (06/2016) Ankle pain (06/2016) Cataract (12/2015) Surgical History History of basal cell carcinoma (BCC) excision (09/04/16) History of phacoemulsification of cataract of left eye with intraocular lens implantation (05/02/16) History of phacoemulsification of cataract of right eye with intraocular lens implantation (04/18/16) History of colonoscopy with polypectomy (06/30/11) Family History Father Cancer Diabetes mellitus Hypertension Mother Cancer High cholesterol Grandfather No problems noted. Grandmother No problems noted. Grandfather No problems noted. Grandmother No problems noted. Social History marital status: household members: spouse and none lives independently: Yes occupational status: previously employed Smoking Status: Never smoker alcohol intake: current substance use type: does not use Discharge Plan Discharge Plan Patient Disposition: Home Discharge orders & Medications Prescriptions: New doxycycline hyclate 100 mg tablet 100 mg PO BID Qty: 14 0RF Continued atorvastatin [Lipitor] 20 mg tablet 20 mg PO HS Qty: 90 3RF nitroglycerin 0.4 mg tablet, sublingual 0.4 mg sublingual Q5-15M PRN (Reason: Chest Pain) Rx Instructions: do not exceed 3 doses per episode spironolactone 25 mg tablet 25 mg PO DAILY apixaban 5 mg tablet 5 mg PO BID Qty: 180 3RF metoprolol succinate 50 mg tablet extended release 24 hr 100 mg PO BID Qty: 360 1RF albuterol sulfate 1.25 mg/3 mL solution for nebulization 1.25 mg inhalation Q4-6H PRN (Reason: for wheezing) Qty: 75 5RF fluticasone propion-salmeterol [Wixela Inhub] 250-50 mcg/dose blister with device 1 inh inhalation BID Qty: 180 3RF tamsulosin [Flomax] 0.4 mg capsule 0.8 mg PO DAILY Qty: 180 3RF albuterol sulfate 90 mcg/actuation HFA aerosol inhaler 2 puff PO Q4H PRN (Reason: for wheezing) Qty: 6.7 5RF albuterol sulfate 90 mcg/actuation HFA aerosol inhaler 2 puff PO Q6H PRN (Reason: for wheezing) Qty: 6.7 3RF tiotropium bromide [Spiriva with HandiHaler] 18 mcg capsule, w/inhalation device 1 cap inhalation DAILY Qty: 60 3RF PreserVision AREDS 4,296 mcg-226 mg-90 mg capsule 1 cap PO .qd Jardiance 10 mg tablet 10 mg PO DAILY losartan 25 mg tablet 25 mg PO DAILY amiodarone 200 mg tablet 100 mg PO DAILY montelukast 10 mg Tablet 10 mg PO BEDTIME torsemide 10 mg tablet 10 mg PO BID Follow up/Referrals: Zurdo Mcdonnell MD [Primary Care Provider, Family Practice] Visit Report/Discharge Packet Stand Alone Forms: Patient Portal/API, Stroke Signs & Symptoms Discharge Data Primary Care Provider: Zurdo Mcdonnell Quality VTE Deep Vein Thrombosis/Pulmonary Embolism Present on Admission: No IH PROFEE Charge Codes Discharge inpatient/observation: [id number]
[2025-07-02 07:58] VITALS: PULSE 104; RESP 18; O2SAT 96
[2025-07-02] MEDS: ALBUTEROL 2.5 MG/3 ML NEB (ADULT) INH (07:58)
[2025-07-02] MEDS: BUDESONIDE 0.5 MG/2 ML NEB INH (07:58)
[2025-07-02 08:00] VITALS: BP 104/60; PULSE 110; RESP 16; TEMP 36.2; O2SAT 91
[2025-07-02] MEDS: AMIODARONE 200 MG TABLET 100 MG PO (08:34)
[2025-07-02] MEDS: METOPROLOL ER 50 MG TABLET PO (08:34)
[2025-07-02] MEDS: SPIRONOLACTONE 25 MG TABLET PO (08:34)
[2025-07-02] MEDS: APIXABAN 5 MG TABLET PO (08:34)
--- NOTE | 2025-07-02 13:15 | CM.DPNOTE ---
DC Note Discharge home w/sp and family. Patient denies the need for HH. No needs from this SW team identified. Transport via family. CONG
--- NOTE | 2025-07-03 08:24 | PC.NURSE ---
Day shift: This software writer was asked by Hunter at approx 1700 on 07/02/25 to go to Pt's house and remove Pt's IV. Went to Pt's house on [address] and removed IV at approx 0820 on 07/02/25. Tip intact. Pt did bleed after removal and pressure applied for approx 15 minutes and bleeding stopped. Pt thankful for IV being removed. Pt had no concerns or complaints.
== END 2025-07-02 09:49 | disposition home or self-care (01) | DRG 193 ==
LOC: ED 06-30 03:02 → AC 06-30 03:04 → ICU 06-30 04:21
PROVIDERS: Admitting Provider Family Medicine; Emergency Provider Emergency Medicine; PCP Family Medicine; Referring Provider Emergency Medicine; Visit Provider Family Medicine
DX: J18.9 Pneumonia, unspecified organism (principal); G93.41 Metabolic encephalopathy; I50.21 Acute systolic (congestive) heart failure; J44.0 Chronic obstructive pulmonary disease with (acute) lower respiratory infection; I13.0 Hypertensive heart and chronic kidney disease with heart failure and stage 1 through stage 4 chronic kidney disease, or unspecified chronic kidney disease; I48.91 Unspecified atrial fibrillation; E78.2 Mixed hyperlipidemia; E83.119 Hemochromatosis, unspecified; J84.10 Pulmonary fibrosis, unspecified; N18.30 Chronic kidney disease, stage 3 unspecified; E78.5 Hyperlipidemia, unspecified; D63.1 Anemia in chronic kidney disease; R00.0 Tachycardia, unspecified; I95.9 Hypotension, unspecified; R33.9 Retention of urine, unspecified; W07.XXXA Fall from chair, initial encounter; Z79.01 Long term (current) use of anticoagulants
CPT/HCPCS: 36415; 70450; 71045; 71250; 74176; 80053; 80061; 81001; 83605; 83690; 83880; 84145; 84439; 84443; 85025; 85610; 85730; 87040; 87637; 87797; 93005; 94640; 94760; 96361; 96365; 99285; 99291; J0696; J1938; J7613